=== PATIENT | male | born 1960 | race Caucasian/White ===

== ENCOUNTER → 2019-03-07 08:23 | Outpatient (CLI) | payer MEDICARE, SELFPAY ==
--- NOTE | 2019-03-07 08:29 | CT_ITS ---
STUDY: CT ORBITS WITH CONTRAST REASON FOR EXAM: Male, 59 years old. PROPTOSIS LT EYE R/O ORBITAL MASS. RESTRICTED MOVEMENT IN LEFT EYE. RADIATION DOSAGE (If Supplied By Facility): CTDIvol = ( 29.38 ) mGy, DLP = ( 327.08 ) mGycm TECHNIQUE: The patient was scanned in a multi detector CT scanner. Transaxial imaging was performed following the intravenous administration of 100 IV Isovue 370. Sagittal and coronal images were reconstructed. Individualized dose optimization techniques were used for this CT. COMPARISON: None. FINDINGS: Normal globes. Normal intraconal spaces. Normal optic nerve sheath complex. There is diffuse symmetric enlargement of the extraocular muscles on the left. Normal lacrimal glands. Normal bilateral medial and inferior orbital fisher. Normal bilateral maxillary bones. CT/Orb Sella Post Fossa Ear W/CON IMPRESSION: Enlargement of the left extraocular muscles. Differential considerations includes inflammatory (e.g. orbital pseudotumor), infectious and neoplastic disease. Electronically Signed: Manny Rondon MD at 10:25 EDT Tel , Service support ,
[2019-03-07 08:55] LABS: CREATININE FINGERSTICK 1.5 mg/dL (0.70-1.30)
== END ==
PROVIDERS: Family Provider Internal Medicine Infectious Disease; PCP Internal Medicine Infectious Disease; Referring Provider Ophthalmology; Visit Provider Ophthalmology
DX: H05.20 Unspecified exophthalmos (principal); H55.89 Other irregular eye movements
CPT/HCPCS: 70481; Q9967

== ENCOUNTER 2019-06-16 14:48 | Outpatient (RCR) | payer MEDICARE, SELFPAY ==
[2019-06-16 15:17] LABS: Hematocrit 26.4 % (40-54); Hemoglobin 7.9 g/dL (13.0-16.5); Mean Corp Hgb Conc 29.9 g/dL (32-36); Mean Corpuscular Hgb 29.4 pg (27.0-32.0); Mean Corpuscular Volume 98.1 fL (80-94); Mean Platelet Vol. 9.6 fl (6.2-12.0); Platelet Count 249 K/mm3 (150-450); RBC Distribution Width CV 18.6 % (11.6-14.6); Red Blood Count 2.69 M/mm3 (4.6-6.2); White Blood Count 9.3 K/mm3 (4.4-11.0)
[2019-06-16 15:25] LABS: Anion Gap 10 (5-15); BUN 76 mg/dL (7-18); BUN/Creat Ratio 12.1 RATIO (10-20); Calcium,Total 7.7 mg/dL (8.5-10.1); Chloride 108 mmol/L (98-107); Creatinine, Serum 6.29 mg/dL (0.70-1.30); EST Glomerular Filtration Rate 10 mL/min (>60); Est Glom Filt Rate - Afr Amer 12 mL/min (>60); Glucose 279 mg/dL (74-106); Potassium 5.2 mmol/L (3.5-5.1); Sodium Level 143 mmol/L (136-145)
== END 2019-06-21 23:59 ==
LOC: HHLAB 14:48
PROVIDERS: Family Provider Internal Medicine Infectious Disease; PCP Internal Medicine Infectious Disease; Referring Provider Internal Medicine Infectious Disease; Visit Provider Internal Medicine Infectious Disease
DX: N17.9 Acute kidney failure, unspecified (principal); Z99.2 Dependence on renal dialysis
CPT/HCPCS: 80048; 85027

== ENCOUNTER → 2019-06-19 | Outpatient (CLI) | payer MEDICARE, SELFPAY ==
[2019-06-19 17:58] LABS: Hematocrit 28.1 % (40-54); Mean Corp Hgb Conc 28.5 g/dL (32-36); Mean Corpuscular Hgb 29.5 pg (27.0-32.0); Mean Corpuscular Volume 103.7 fL (80-94); Mean Platelet Vol. 9.6 fl (6.2-12.0); POSITIVE MORPHOLOGY YES; Platelet Count 229 K/mm3 (150-450); RBC Distribution Width CV 18.1 % (11.6-14.6); RBC Distribution Width SD 68.8 fl (35.1-43.9); Red Blood Count 2.71 M/mm3 (4.6-6.2); White Blood Count 8.9 K/mm3 (4.4-11.0)
[2019-06-19 18:13] LABS: Anion Gap 11 (5-15); BUN 69 mg/dL (7-18); BUN/Creat Ratio 13.5 RATIO (10-20); Calcium,Total 8.1 mg/dL (8.5-10.1); Chloride 107 mmol/L (98-107); EST Glomerular Filtration Rate 12 mL/min (>60); Est Glom Filt Rate - Afr Amer 15 mL/min (>60); Glucose 239 mg/dL (74-106); Potassium 5.5 mmol/L (3.5-5.1); Sodium Level 145 mmol/L (136-145)
[2019-06-19 18:35] LABS: Scan Indicated on CBC? Y/N YES- FLAGS NOTED
== END | disposition home or self-care (01) ==
PROVIDERS: Family Provider Internal Medicine Infectious Disease; PCP Internal Medicine Infectious Disease; Referring Provider Internal Medicine Infectious Disease; Visit Provider Internal Medicine Infectious Disease
DX: N17.9 Acute kidney failure, unspecified (principal); Z99.2 Dependence on renal dialysis
CPT/HCPCS: 80048; 85027

== ENCOUNTER 2019-06-23 13:15 | Outpatient (RCR) | payer MEDICARE, SELFPAY ==
[2019-06-23 13:37] LABS: Hematocrit 26.7 % (40-54); Mean Corpuscular Hgb 29.6 pg (27.0-32.0); Mean Corpuscular Volume 98.9 fL (80-94); Platelet Count 203 K/mm3 (150-450); RBC Distribution Width SD 61.6 fl (35.1-43.9); White Blood Count 7.7 K/mm3 (4.4-11.0)
== END 2019-07-22 23:59 ==
LOC: HHLAB 13:15
PROVIDERS: Family Provider Internal Medicine Infectious Disease; PCP Internal Medicine Infectious Disease; Referring Provider Internal Medicine Infectious Disease; Visit Provider Internal Medicine Infectious Disease
DX: N17.9 Acute kidney failure, unspecified (principal); Z99.2 Dependence on renal dialysis
CPT/HCPCS: 85027

== ENCOUNTER 2019-08-16 08:36 | Outpatient (RCR) | payer MEDICARE, SELFPAY ==
[2019-08-16 09:33] VITALS: BP 116/60; PULSE 70; RESP 18; TEMP 36.9
--- NOTE | 2019-08-16 12:27 | PCM.WC.HP ---
(1) Ulcer of left lower extremity with fat layer exposed Status: Acute Current Visit: Yes Code(s): L97.922 - Non-pressure chronic ulcer of unspecified part of left lower leg with fat layer exposed (2) Ulcer of right lower extremity with fat layer exposed Status: Acute Current Visit: Yes Code(s): L97.912 - Non-pressure chronic ulcer of unspecified part of right lower leg with fat layer exposed (3) Decubitus ulcer of coccyx, stage 2 Status: Acute Current Visit: Yes Code(s): L89.152 - Pressure ulcer of sacral region, stage 2 (4) Diabetes mellitus Status: Chronic Current Visit: No Code(s): E11.9 - Type 2 diabetes mellitus without complications (5) Peripheral vascular disease Status: Chronic Current Visit: No Code(s): I73.9 - Peripheral vascular disease, unspecified (6) Venous insufficiency of both lower extremities Status: Chronic Current Visit: No Code(s): I87.2 - Venous insufficiency (chronic) (peripheral) History of Present Illness Date of Service: 08/16/19 Chief Complaint: Nonhealing bilateral lower extremity ulcers. History of Wound: Mr. Cordero 59-year-old known to the wound center who returns due to 3-week history of nonhealing bilateral lower extremity ulcerations. Symptoms started with bilateral lower extremity swelling, blistering and then subsequent ulceration. He is status post recent hospital admission where he was managed for cellulitis. He also reports new onset ulceration around his buttock area. Denies any history of trauma. During his hospital stay, he had dry dressing with gauze daily. He states that he has noted no significant improvement so far. Lower extremity swelling however has improved. He denies chills, fever or otherwise feeling of unwell. History of end-stage renal disease on dialysis 3 times weekly. Past Medical History Past Medical History: Chronic Problems Equinus contracture of left ankle (Chronic) Hammer toe of left foot (Chronic) Diabetic neuropathy (Chronic) CHF (congestive heart failure) (Chronic) Infected skin ulcer with fat layer exposed (Chronic) Ulcer of left foot (Chronic) Diabetic foot ulcer associated with secondary diabetes mellitus (Chronic) Swelling of lower extremity (Chronic) Hyperlipidemia (Chronic) Hypertension (Chronic) Diabetes mellitus (Chronic) History of [place] (myocardial infarction) (Chronic) Coronary artery arteriosclerosis (Chronic) Venous insufficiency of both lower extremities (Chronic) Edema, lower extremity (Chronic) Peripheral vascular disease (Chronic) Surgical History: - - The patient underwent coronary vascular rosacea in 2013. A pacemaker is placed in 2013 as well. The patient is undergone bilaterally with a hernia repairs. Allergies/Adverse Reactions: Allergies CONTRAST DYE Adverse Reaction (Uncoded 11/24/15 13:20) Other Home Medications: Ambulatory Orders Medication Instructions Recorded Aspirin [Adult Low Dose Aspirin EC] 81 mg PO DAILY 08/28/15 Gabapentin [Neurontin] 300 mg PO TIDCM 08/28/15 Insulin Glargine,Hum.rec.anlog 60 units SQ QHS 08/28/15 [Lantus] Lisinopril [Zestril] 40 mg PO DAILY 08/28/15 Lovastatin [Mevacor] 20 mg PO DAILY 08/28/15 Metoprolol Tartrate [Lopressor 100 mg PO DAILY 08/28/15 ([facility] [place])] Insulin Aspart [Novolog Flexpen 26 units SC TIDCM 11/14/15 ([facility])] - Family History Maternal - - Patient's father at age of 83 with a history of heart disease and dementia. The patient's mother is alive, age 84, and healthy. Smoking Status: Never smoker Review of Systems Constitutional: Denies: Anorexia, Chills, Fever, Night Sweats Eyes: Denies: Blurred vision, Pain HEENT: Denies: Difficulty Swallowing Cardiovascular: Denies: Chest Pain Respiratory: Denies: Hemoptysis Gastrointestinal: Denies: Abdominal Pain, Hematemesis, Vomiting Skin: Denies: Jaundice Neurological: Reports: Balance problems - Physical Exam Vital Signs Temp Pulse Resp BP 98.4 F 70 18 116/60 08/16/19 09:33 08/16/19 09:33 08/16/19 09:33 08/16/19 09:33 General: Alert, Oriented x3, Cooperative, No apparent distress HEENT: Atraumatic, Normocephalic Oral: Moist Mucosa Neck: Supple Lungs: Normal air movement Abdomen: Non Tender, Obese Extremities: No cyanosis, Edema Skin: Ulcer/ Wound Wound Measurements and Assessment WC - Nurse 1 - General Ulcer Measurement Start: 08/16/19 09:13 Freq: Status: Active Protocol: Activity Type Activity Date Activity User E-Sign Co-Sign Detail Recorded Client Recorded Date Recorded By Document 08/16/19 09:13 RB [id number] 08/16/19 09:32 RB 08/16/19 09:13 Wound Center Nurse 1 [Ulcer Assessment] 7. RLE lateral cluster -Combined with other wound No -Current Size (cm) - Length 16 -Current Size (cm) - Width 13 -Current Size (cm) - Depth 0.1 -Total Square Cm 208 -Photo Taken Yes -Tunneling No -Undermining/Tunneling No -Circular Undermining No -Exudate Amt Medium -Exudate Type Serosanguineous -Wound Margin Flat & Intact -Granulation Amt Medium (34-66%) -Granulation Quality [place] -Slough/Fibrin Yes -Necrosis Amt Small (1-33%) -Necrotic Tissue Type Adherent Slough -Structure Exposed N/A -Texture (Emily-wound Skin Appearance) Assessed -Moisture (Emily-wound Skin Appearance Dry/Scaly ) -Color (Emily-wound Skin Appearance) Hemosiderin Staining -Temperature (Emily-wound Skin No Abnormality Appearance) (Pt Warm) -Tenderness on Palpation (Emily-wound No Skin Appearance) -Ulcer Cleansing Wound Cleanser -Foul Odor after Cleansing No -Anesthetic Used 5% Lidocaine Gel 6. LLE lateral superior -Combined with other wound No -Current Size (cm) - Length 3.5 -Current Size (cm) - Width 2.5 -Current Size (cm) - Depth 0.1 -Total Square Cm 8.75 -Photo Taken Yes -Tunneling No -Undermining/Tunneling No -Circular Undermining No -Exudate Amt Medium -Exudate Type Serosanguineous -Wound Margin Flat & Intact -Granulation Amt Medium (34-66%) -Granulation Quality [place] -Slough/Fibrin Yes -Necrosis Amt Small (1-33%) -Necrotic Tissue Type Adherent Slough -Structure Exposed N/A -Texture (Emily-wound Skin Appearance) Assessed -Moisture (Emily-wound Skin Appearance Dry/Scaly ) -Color (Emily-wound Skin Appearance) Hemosiderin Staining -Temperature (Emily-wound Skin No Abnormality Appearance) (Pt Warm) -Tenderness on Palpation (Emily-wound No Skin Appearance) -Ulcer Cleansing Wound Cleanser -Foul Odor after Cleansing No -Anesthetic Used 5% Lidocaine Gel 5. LLE lateral inferior cluster -Combined with other wound No -Current Size (cm) - Length 8.2 -Current Size (cm) - Width 4 -Current Size (cm) - Depth 0.1 -Total Square Cm 32.8 -Photo Taken Yes -Tunneling No -Undermining/Tunneling No -Circular Undermining No -Exudate Amt Medium -Exudate Type Serosanguineous -Wound Margin Flat & Intact -Granulation Amt Medium (34-66%) -Granulation Quality [place] -Slough/Fibrin Yes -Necrosis Amt Small (1-33%) -Necrotic Tissue Type Adherent Slough -Structure Exposed N/A -Texture (Emily-wound Skin Appearance) Assessed -Moisture (Emily-wound Skin Appearance Assessed,Dry/ ) Scaly -Color (Emily-wound Skin Appearance) Assessed, Hemosiderin Staining -Temperature (Emily-wound Skin No Abnormality Appearance) (Pt Warm) -Tenderness on Palpation (Emily-wound No Skin Appearance) -Ulcer Cleansing Wound Cleanser -Foul Odor after Cleansing No -Anesthetic Used 5% Lidocaine Gel 4. coccyx -Combined with other wound No -Current Size (cm) - Length 0.6 -Current Size (cm) - Width 0.9 -Current Size (cm) - Depth 0.1 -Total Square Cm 0.54 -Photo Taken Yes -Tunneling No -Undermining/Tunneling No -Circular Undermining No -Exudate Amt Small -Exudate Type Serosanguineous -Wound Margin Distinct, Outline Attached -Granulation Amt Medium (34-66%) -Granulation Quality [place] -Slough/Fibrin Yes -Necrosis Amt Small (1-33%) -Necrotic Tissue Type Adherent Slough -Structure Exposed N/A -Texture (Emily-wound Skin Appearance) Assessed -Moisture (Emily-wound Skin Appearance Maceration ) -Color (Emily-wound Skin Appearance) Assessed -Temperature (Emily-wound Skin No Abnormality Appearance) (Pt Warm) -Tenderness on Palpation (Emily-wound No Skin Appearance) -Ulcer Cleansing Wound Cleanser -Foul Odor after Cleansing No -Anesthetic Used 5% Lidocaine Gel [Edema Assessment] -Lower Limb Edema Present Yes -Right Calf (cm) 42.5 -Right Ankle (cm) 24 -Left Calf (cm) 43.7 -Left Ankle (cm) 24.5 WC - Nurse 2 - General Ulcer CM Notes Start: 08/16/19 09:13 Freq: Status: Active Protocol: Activity Type Activity Date Activity User E-Sign Co-Sign Detail Recorded Client Recorded Date Recorded By Document 08/16/19 09:43 MW [id number] 08/16/19 09:58 MW 08/16/19 09:43 Wound Center Nurse 2 [Procedure/Treatment] #8 RLE Medial -Time 09:48 -Correct Patient Yes -Correct Side, Site, Position Yes -Correct Procedure Yes -Procedure Performed Yes -Type of Procedure Debridement -Clinical Debridement Subcutaneous -Post Debridement Size (cm) - Length 5.5 -Post Debridement Size (cm) - Width 4.5 -Post Debridement Size (cm) - Depth 0.1 -Total Square Cm 24.75 -Wound/Ulcer Outcome Not Healed -Ulcer Cleansing Rinsed/ Irrigated with Saline -Foul Odor after Cleansing No -Bioengineered Tissue No -Bleeding Controlled with Pressure -Offloading No -Treatment Response Procedure Tolerated Well 7. RLE lateral cluster -Time 09:43 -Correct Patient Yes -Correct Side, Site, Position Yes -Correct Procedure Yes -Procedure Performed Yes -Type of Procedure Debridement -Clinical Debridement Subcutaneous -Post Debridement Size (cm) - Length 15.5 -Post Debridement Size (cm) - Width 5.0 -Post Debridement Size (cm) - Depth 0.1 -Total Square Cm 77.50 -Wound/Ulcer Outcome Not Healed -Ulcer Cleansing Rinsed/ Irrigated with Saline -Foul Odor after Cleansing No -Bioengineered Tissue No -Bleeding Controlled with Pressure -Offloading No -Treatment Response Procedure Tolerated Well 6. LLE lateral superior -Time 09:45 -Correct Patient Yes -Correct Side, Site, Position Yes -Correct Procedure Yes -Procedure Performed Yes -Type of Procedure Debridement -Clinical Debridement Subcutaneous -Post Debridement Size (cm) - Length 5.0 -Post Debridement Size (cm) - Width 3.5 -Post Debridement Size (cm) - Depth 0.1 -Total Square Cm 17.50 -Wound/Ulcer Outcome Not Healed -Ulcer Cleansing Rinsed/ Irrigated with Saline -Foul Odor after Cleansing No -Bioengineered Tissue No -Bleeding Controlled with Pressure -Offloading No 5. LLE lateral inferior cluster -Time 09:46 -Correct Patient Yes -Correct Side, Site, Position Yes -Correct Procedure Yes -Procedure Performed Yes -Type of Procedure Debridement -Clinical Debridement Subcutaneous -Post Debridement Size (cm) - Length 10.0 -Post Debridement Size (cm) - Width 4.5 -Post Debridement Size (cm) - Depth 0.1 -Total Square Cm 45.00 -Wound/Ulcer Outcome Not Healed -Ulcer Cleansing Rinsed/ Irrigated with Saline -Foul Odor after Cleansing No -Bioengineered Tissue No -Bleeding Controlled with Pressure -Offloading No -Treatment Response Procedure Tolerated Well 4. coccyx -Time 09:46 -Correct Patient Yes -Correct Side, Site, Position Yes -Correct Procedure Yes -Procedure Performed Yes -Type of Procedure Debridement -Clinical Debridement Subcutaneous -Post Debridement Size (cm) - Length 0.4 -Post Debridement Size (cm) - Width 0.5 -Post Debridement Size (cm) - Depth 0.1 -Total Square Cm 0.20 -Wound/Ulcer Outcome Not Healed -Ulcer Cleansing Rinsed/ Irrigated with Saline -Foul Odor after Cleansing No -Bioengineered Tissue No -Bleeding Controlled with Pressure -Offloading No -Treatment Response Procedure Tolerated Well [See Physician Procedure note for Specifics] Pain Scale: 0-10 Numeric [Pain] -Is Patient Pain Free? Yes Musculoskeletal: No Muscle Wasting Neurological: Cranial nerves II-XII grossly intact Psych/Mental Status: Normal Affect Debridement Note Post-Debridement Measurements/Treatment WC - Nurse 2 - General Ulcer CM Notes Start: 08/16/19 09:13 Freq: Status: Active Protocol: Activity Type Activity Date Activity User E-Sign Co-Sign Detail Recorded Client Recorded Date Recorded By Document 08/16/19 09:43 MW [id number] 08/16/19 09:58 MW 08/16/19 09:43 Wound Center Nurse 2 #8 RLE Medial -Time 09:48 -Correct Patient Yes -Correct Side, Site, Position Yes -Correct Procedure Yes -Procedure Performed Yes -Type of Procedure Debridement -Clinical Debridement Subcutaneous -Post Debridement Size (cm) - Length 5.5 -Post Debridement Size (cm) - Width 4.5 -Post Debridement Size (cm) - Depth 0.1 -Total Square Cm 24.75 -Wound/Ulcer Outcome Not Healed -Ulcer Cleansing Rinsed/ Irrigated with Saline -Foul Odor after Cleansing No -Bioengineered Tissue No -Bleeding Controlled with Pressure -Offloading No -Treatment Response Procedure Tolerated Well 7. RLE lateral cluster -Time 09:43 -Correct Patient Yes -Correct Side, Site, Position Yes -Correct Procedure Yes -Procedure Performed Yes -Type of Procedure Debridement -Clinical Debridement Subcutaneous -Post Debridement Size (cm) - Length 15.5 -Post Debridement Size (cm) - Width 5.0 -Post Debridement Size (cm) - Depth 0.1 -Total Square Cm 77.50 -Wound/Ulcer Outcome Not Healed -Ulcer Cleansing Rinsed/ Irrigated with Saline -Foul Odor after Cleansing No -Bioengineered Tissue No -Bleeding Controlled with Pressure -Offloading No -Treatment Response Procedure Tolerated Well 6. LLE lateral superior -Time 09:45 -Correct Patient Yes -Correct Side, Site, Position Yes -Correct Procedure Yes -Procedure Performed Yes -Type of Procedure Debridement -Clinical Debridement Subcutaneous -Post Debridement Size (cm) - Length 5.0 -Post Debridement Size (cm) - Width 3.5 -Post Debridement Size (cm) - Depth 0.1 -Total Square Cm 17.50 -Wound/Ulcer Outcome Not Healed -Ulcer Cleansing Rinsed/ Irrigated with Saline -Foul Odor after Cleansing No -Bioengineered Tissue No -Bleeding Controlled with Pressure -Offloading No 5. LLE lateral inferior cluster -Time 09:46 -Correct Patient Yes -Correct Side, Site, Position Yes -Correct Procedure Yes -Procedure Performed Yes -Type of Procedure Debridement -Clinical Debridement Subcutaneous -Post Debridement Size (cm) - Length 10.0 -Post Debridement Size (cm) - Width 4.5 -Post Debridement Size (cm) - Depth 0.1 -Total Square Cm 45.00 -Wound/Ulcer Outcome Not Healed -Ulcer Cleansing Rinsed/ Irrigated with Saline -Foul Odor after Cleansing No -Bioengineered Tissue No -Bleeding Controlled with Pressure -Offloading No -Treatment Response Procedure Tolerated Well 4. coccyx -Time 09:46 -Correct Patient Yes -Correct Side, Site, Position Yes -Correct Procedure Yes -Procedure Performed Yes -Type of Procedure Debridement -Clinical Debridement Subcutaneous -Post Debridement Size (cm) - Length 0.4 -Post Debridement Size (cm) - Width 0.5 -Post Debridement Size (cm) - Depth 0.1 -Total Square Cm 0.20 -Wound/Ulcer Outcome Not Healed -Ulcer Cleansing Rinsed/ Irrigated with Saline -Foul Odor after Cleansing No -Bioengineered Tissue No -Bleeding Controlled with Pressure -Offloading No -Treatment Response Procedure Tolerated Well Pain Scale: 0-10 Numeric Is Patient Pain Free? Yes Wound debrided: Right lower extremity lateral cluster Type of Debridement: Excisional debridement Anesthesia Used: 4% Lidocaine Solution Depth: Down to and including healthy tissue, in the subcutaneous layer Percentage of wound debrided: 100 Instrument Used: 7mm curette Tissue Removed: Slough and devitalized tissue Severity: Fat Layer Exposed Amount of bleeding with debridement: Mild Bleeding Controlled with: Pressure Patient tolerated procedure well - Additional Wound Wound debrided: Right lower extremity medial Type of Debridement: Excisional debridement Anesthesia Used: 4% Lidocaine Solution Depth: Down to and including healthy tissue, in the subcutaneous layer Percentage of wound debrided: 100 Instrument Used: 7mm curette Tissue Removed: Slough and devitalized tissue Severity: Fat Layer Exposed Amount of bleeding with debridement: Mild Bleeding Controlled with: Pressure Patient tolerated procedure: Patient tolerated procedure well - Additional Wound Wound debrided: Left lower extremity cluster Type of Debridement: Excisional debridement Anesthesia Used: 4% Lidocaine Solution Depth: Down to and including healthy tissue, in the subcutaneous layer Percentage of wound debrided: 100 Instrument Used: 7mm curette Tissue Removed: Slough and devitalized tissue Severity: Fat Layer Exposed Amount of bleeding with debridement: Mild Bleeding Controlled with: Pressure Patient tolerated procedure: Patient tolerated procedure well - Additional Wound Wound debrided: Coccyx Wound Grade/Stage: Stage II Type of Debridement: Excisional debridement Anesthesia Used: 4% Lidocaine Solution Depth: Down to and including healthy tissue, in the subcutaneous layer Percentage of wound debrided: 100 Instrument Used: 3mm curette Tissue Removed: Slough and devitalized tissue Severity: Fat Layer Exposed Amount of bleeding with debridement: Mild Bleeding Controlled with: Pressure Patient tolerated procedure: Patient tolerated procedure well Assessment/Plan Active Problems Ulcer of left lower extremity with fat layer exposed (Acute) Ulcer of right lower extremity with fat layer exposed (Acute) Decubitus ulcer of coccyx, stage 2 (Acute) Assessment: Nonhealing bilateral lower extremity ulcerations secondary to venous insufficiency/post bilateral lower extremity cellulitis. Stage II coccyx ulcer. Peripheral arterial disease and bilateral venous insufficiency. End-stage renal disease on dialysis. Plan: Debridement done as documented above. Procedure was well-tolerated. Status post recent hospital admission where he was managed for bilateral lower extremity cellulitis. Wounds appear clean at this time with no concern for infection. Aquacel extra daily to twice daily depending on drainage to all ulcers. Double layer Tubigrip's for edema management and OptiForm over Aquacel to the coccyx area. Offloading recommended. Exercise as tolerated, weight loss and leg elevations also discussed. Increased protein intake also recommended. All his questions were answered and he was advised to call with any further questions or concerns. Follow-up in 1 week. This note was generated with [employer] dictation software. It may contain incorrect words, spelling, and punctuation that were not noted in checking the note before signing.
== END 2019-08-21 23:59 ==
LOC: WC 08:36
PROVIDERS: Family Provider Internal Medicine Infectious Disease; PCP Internal Medicine Infectious Disease; Visit Provider Internal Medicine
DX: E11.622 Type 2 diabetes mellitus with other skin ulcer (principal); L89.152 Pressure ulcer of sacral region, stage 2; E11.51 Type 2 diabetes mellitus with diabetic peripheral angiopathy without gangrene; M79.89 Other specified soft tissue disorders; E78.5 Hyperlipidemia, unspecified; I25.10 Atherosclerotic heart disease of native coronary artery without angina pectoris; I50.9 Heart failure, unspecified; I13.2 Hypertensive heart and chronic kidney disease with heart failure and with stage 5 chronic kidney disease, or end stage renal disease; N13.2 Hydronephrosis with renal and ureteral calculous obstruction; E11.22 Type 2 diabetes mellitus with diabetic chronic kidney disease; L97.812 Non-pressure chronic ulcer of other part of right lower leg with fat layer exposed; L97.822 Non-pressure chronic ulcer of other part of left lower leg with fat layer exposed; I25.2 Old myocardial infarction; Z79.899 Other long term (current) drug therapy; Z79.82 Long term (current) use of aspirin; Z79.4 Long term (current) use of insulin
CPT/HCPCS: 11042; 11045; 80048; 80061; 83036; 85652; 99213; G0463

== ENCOUNTER → 2019-08-16 17:54 | Outpatient (CLI) | payer MEDICARE, SELFPAY ==
[2019-08-16 18:12] LABS: Erythrocyte Sedimentation Rate 58 mm/hr (0-20)
[2019-08-16 18:24] LABS: Hemoglobin A1c 8.1 % (4.2-6.3)
[2019-08-16 18:35] LABS: Anion Gap 10 (5-15); BUN 64 mg/dL (7-18); BUN/Creat Ratio 9.6 RATIO (10-20); Calcium,Total 7.9 mg/dL (8.5-10.1); Chloride 98 mmol/L (98-107); Cholesterol 78 mg/dL (200); Creatinine, Serum 6.64 mg/dL (0.70-1.30); EST Glomerular Filtration Rate 9 mL/min (>60); Est Glom Filt Rate - Afr Amer 11 mL/min (>60); Glucose 332 mg/dL (74-106); High Density Lipoprotein 52 mg/dL; Potassium 5.3 mmol/L (3.5-5.1); Sodium Level 138 mmol/L (136-145); Triglycerides 75 mg/dL; Very Low Density Lipoprotein 15 mg/dL (5-40)
== END ==
LOC: LABSPEC 17:55 → HH 17:57
PROVIDERS: Family Provider Internal Medicine Infectious Disease; PCP Internal Medicine Infectious Disease; Referring Provider Internal Medicine Infectious Disease; Visit Provider Internal Medicine Infectious Disease
DX: Z79.899 Other long term (current) drug therapy (principal)
CPT/HCPCS: 80048; 80061; 83036; 85652

== ENCOUNTER 2019-11-03 20:35 | Inpatient (IN) | payer MEDICARE, SELFPAY ==
[2019-11-03] VITALS (9 sets, daily range): BP systolic 87–138; BP diastolic 61–90; PULSE 89–99; RESP 14–22; TEMP 35.9–36.4; O2SAT 78–100
--- NOTE | 2019-11-03 20:39 | EKG12_ITS ---
Test Reason : DYSRHYTHMIA Blood Pressure : / mmHG Vent. Rate : 197 BPM Atrial Rate : 102 BPM P-R Int : 000 ms QRS Dur : 170 ms QT Int : 166 ms P-R-T Axes : 000 -55 000 degrees QTc Int : 300 ms Sinus Tach with Paced Vetricular Response Left axis deviation Abnormal ECG Confirmed by ALEXANDR BARRON ([id number]), editorial project manager CHERI HOLLY ([id number]) on 11/08/2019 1:06:15 PM Referred By: Bam Campoverde Confirmed By:ALEXANDR BARRON
[2019-11-03] MEDS: Etomidate 20 MG/10 ML Vial IV (20:47)
[2019-11-03] MEDS: Rocuronium Bromide 50 MG/5 ML Vial 100 MG IV (20:48)
[2019-11-03] MEDS: 0.9% Normal Saline 1,000 ML 999 ML IV (20:53)
[2019-11-03 20:55] LABS: Absolute Lymphocyte Count 0.74 X10^3/uL (0.83-4.51); Absolute Neutrophil Count 7.4 X10^3/uL (2.0-7.7); Basophil# 0.05 X10^3/uL; Basophil% 0.5 % (0-1); Eosinophil# 0.01 X10^3/uL; Eosinophils% 0.1 % (0-5); Hematocrit 32.7 % (40-54); Hemoglobin 9.7 g/dL (13.0-16.5); Lymphocyte # 0.74 X10^3/ul (4.0); Lymphocyte % 7.8 % (19-41); Mean Corp Hgb Conc 29.7 g/dL (32-36); Mean Corpuscular Hgb 29.8 pg (27.0-32.0); Mean Corpuscular Volume 100.3 fL (80-94); Mean Platelet Vol. 9.2 fl (6.2-12.0); Monocyte# 1.13 X10^3/uL; NRBC Flagged by Analyzer 0 % (0-5); Neutrophil # 7.36 X10^3/uL (2.7-7.7); Neutrophil % 78.1 % (47-70); Platelet Count 229 K/mm3 (150-450); RBC Distribution Width CV 16.3 % (11.6-14.6); RBC Distribution Width SD 59.3 fl (35.1-43.9); Red Blood Count 3.26 M/mm3 (4.6-6.2); White Blood Count 9.4 K/mm3 (4.4-11.0)
--- NOTE | 2019-11-03 20:56 | RAD_ITS ---
STUDY: X-RAY CHEST REASON FOR EXAM: Male, 59 years old. ET tube and NG tube placement TECHNIQUE: Single AP portable view of the chest. COMPARISON: None. FINDINGS: ET tube is noted terminating roughly 4 cm from the charu. Enteric tube is noted with tip and side-port in the stomach. Right subclavian central venous catheter with tip in the distal SVC. Lungs are mildly hypoinflated. Bibasilar atelectasis. Elevated hemidiaphragms. Cardiomegaly with median sternotomy wires. No acute airspace disease. Left chest wall pacing device RAD/Chest 1 View (Portable) IMPRESSION: Lines and tubes as above. Hypoinflated lungs with bibasilar atelectasis. Electronically Signed: Manpreet Beltre DO at 21:24 EST Tel , Service support ,
[2019-11-03 21:03] LABS: Partial Thromboplast Time 40.5 Seconds (24.1-36.2)
[2019-11-03 21:17] LABS: ALB/GLOB Ratio 0.5 RATIO (0.9-2.4); AST(SGOT) 341 U/L (15-37); Alanine Aminotransfer ALT/SGPT 219 U/L (16-61); Albumin, Serum 2.9 g/dL (3.2-5.0); Alkaline Phosphatase 251 U/L (45-117); Anion Gap 13 (5-15); BUN 69 mg/dL (7-18); BUN/Creat Ratio 9.3 RATIO (10-20); Calcium,Total 8.9 mg/dL (8.5-10.1); Chloride 97 mmol/L (98-107); Creatinine, Serum 7.44 mg/dL (0.70-1.30); Estimated Creatinine Clearance 21.25 ml/min; Globulin 5.7 g/dL (2.2-4.2); Glucose 202 mg/dL (74-106); Potassium 8.3 mmol/L (3.5-5.1); Protein, Total 8.6 g/dL (6.4-8.2); Sodium Level 136 mmol/L (136-145)
[2019-11-03 21:21] LABS: Allen Test POS; Base Excess -1 mmol/L (-2 to +2); Bicarbonate 26.5 mmol/L (22-26); FI02 80; Mode A-C; O2 Delivery Device Vent; PEEP 5; PO2 46 mmHG (75-100); RR 14; SITE R Radial; SO2 71 % (95-99); Time Given 2110; Total Carbon Dioxide 28 mmol/L; Vt 500; pCO2 65.3 mmHg (35-45); pH 7.22 (7.35-7.45)
[2019-11-03 21:22] LABS: Mucous, Urine 0 SEEN /hpf (<or=2+); Squamous Epithelial Cells - UA 0 SEEN /hpf (0-5)
[2019-11-03 21:25] LABS: Glucose, Dipstick Normal (Normal); Ketone-Dipstick Negative (Negative); Leukocyte Esterase-Dipstick 500 /ul (Negative); Nitrite-Dipstick Negative (Negative); Occult Blood-Urine 250 /ul (Negative); Protein-Dipstick 500 mg/dl (Negative); Urine Bilirubin Dipstick Negative (Negative); Urine Clarity Turbid (Clear); Urine Urobilinogen Normal (Normal)
[2019-11-03] MEDS: 0.9% Normal Saline 1,000 ML 1000 ML IV ×3 (21:28→23:03)
[2019-11-03] MEDS: Calcium Gluconate 1 GM/10 ML Vial IV (21:33)
[2019-11-03] MEDS: Insulin Lispro 5 UNIT in Syringe 0 ML 3 UNIT IV (21:35)
[2019-11-03 21:36] LABS: Bedside Glucose 177 mg/dL (70-110)
[2019-11-03 21:39] LABS: Color, Urine SEE COMMENT BELOW (Yellow)
[2019-11-03 21:41] LABS: White Blood Cells >100 SEEN /hpf (0-5)
[2019-11-03 21:42] LABS: Bacteria 1+ /hpf (None Seen); Red Blood Cells-Urine 10-25 SEEN /hpf (0-5)
[2019-11-03] MEDS: fentaNYL 100 MCG/2 ML Ampul 50 MCG IV ×2 (21:59→22:27)
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
[2019-11-03] MEDS: fentaNYL drip 100 ML 2.5 MCG IV (22:11)
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
[2019-11-03] MEDS: Dextrose 10%-Water 250 ML 999 ML IV (22:49)
[2019-11-03] MEDS: Famotidine 200 MG/20 ML MDV 20 MG in 0.9% Normal Saline (Pres. free 8 ML 300 MG IV (23:04)
[2019-11-03] MEDS: Propofol 10MG/Ml 1,000 MG/100 ML Bottle 8.6 MG CONT INF (23:13)
--- NOTE | 2019-11-03 23:17 | SEPSISNOTE ---
Sepsis Note - Physical Exam/Vitals Objective: Chest X-Ray 11/03/19 20:56 IMPRESSION: Lines and tubes as above. Hypoinflated lungs with bibasilar atelectasis. Electronically Signed: Manpreet Beltre DO at 21:24 EST Tel , Service support , Temp Pulse Resp BP Pulse Ox 97.1 F L 94 22 H 138/80 H 97 11/03/19 22:05 11/03/19 23:11 11/03/19 23:11 11/03/19 23:11 11/03/19 23:11 11/03/19 11/03/19 11/03/19 21:23 21:17 20:50 WBC RBC Hgb Hct MCV MCH MCHC RDW Std Deviation RDW Coeff of Melissa Plt Count MPV Immature Gran % (Auto) Neut % (Auto) Lymph % (Auto) [place] % (Auto) Eos % (Auto) Baso % (Auto) Absolute Neuts (auto) Absolute Lymphs (auto) Nucleated RBC % PT INR APTT Specimen Type ART Sample Site R Radial pH 7.22 L Bicarbonate Actual 26.5 H POC Total CO2 28 Base Excess -1 O2 Saturation 71 L O2 % 80 ABG pCO2 65.3 H ABG pO2 46 L Daniel Test POS Respiration Rate 14 O2 Delivery Device Vent Minute Volume 9.00 Vent Mode A-C Tidal Volume 500 POC PEEP 5 Blood Gas Notified Whom ED MD Blood Gas Notified Time 2109 Sodium Potassium Chloride Carbon Dioxide Anion Gap BUN Creatinine Estim Creat Clear Calc Est GFR (MDRD) Af Amer Est GFR (MDRD) Non-Af BUN/Creatinine Ratio Glucose Lactic Acid Calcium Total Bilirubin AST ALT Alkaline Phosphatase Total Protein Albumin Globulin Albumin/Globulin Ratio Urine Color SEE COMMENT BELOW Urine Clarity Turbid Urine pH 7.0 Ur Specific [place] 1.010 Urine Protein 500 H Urine Glucose (UA) Normal Urine Ketones Negative Urine Occult Blood 250 H Urine Nitrite Negative Urine Bilirubin Negative Urine Urobilinogen Normal Ur Leukocyte Esterase 500 H Urine RBC 10-25 SEEN Urine WBC >100 SEEN Ur Squamous Epith Cells 0 SEEN Urine Bacteria 1+ Urine Mucus 0 SEEN POC Glucose 177 H 11/03/19 11/03/19 11/03/19 20:45 20:45 20:45 WBC RBC Hgb Hct MCV MCH MCHC RDW Std Deviation RDW Coeff of Melissa Plt Count MPV Immature Gran % (Auto) Neut % (Auto) Lymph % (Auto) [place] % (Auto) Eos % (Auto) Baso % (Auto) Absolute Neuts (auto) Absolute Lymphs (auto) Nucleated RBC % PT 23.0 H INR 2.0 APTT 40.5 H Specimen Type Sample Site pH Bicarbonate Actual POC Total CO2 Base Excess O2 Saturation O2 % ABG pCO2 ABG pO2 Daniel Test Respiration Rate O2 Delivery Device Minute Volume Vent Mode Tidal Volume POC PEEP Blood Gas Notified Whom Blood Gas Notified Time Sodium 136 Potassium 8.3 H* Chloride 97 L Carbon Dioxide 26.0 Anion Gap 13 BUN 69 H Creatinine 7.44 H* Estim Creat Clear Calc 21.25 Est GFR (MDRD) Af Amer TNP Est GFR (MDRD) Non-Af TNP BUN/Creatinine Ratio 9.3 L Glucose 202 H Lactic Acid 5.0 H* Calcium 8.9 Total Bilirubin 1.10 H AST 341 H ALT 219 H Alkaline Phosphatase 251 H Total Protein 8.6 H Albumin 2.9 L Globulin 5.7 H Albumin/Globulin Ratio 0.5 L Urine Color Urine Clarity Urine pH Ur Specific [place] Urine Protein Urine Glucose (UA) Urine Ketones Urine Occult Blood Urine Nitrite Urine Bilirubin Urine Urobilinogen Ur Leukocyte Esterase Urine RBC Urine WBC Ur Squamous Epith Cells Urine Bacteria Urine Mucus POC Glucose 11/03/19 20:45 WBC 9.4 RBC 3.26 L Hgb 9.7 L Hct 32.7 L MCV 100.3 H MCH 29.8 MCHC 29.7 L RDW Std Deviation 59.3 H RDW Coeff of Melissa 16.3 H Plt Count 229 MPV 9.2 Immature Gran % (Auto) 1.500 H Neut % (Auto) 78.1 H Lymph % (Auto) 7.8 L [place] % (Auto) 12.0 H Eos % (Auto) 0.1 Baso % (Auto) 0.5 Absolute Neuts (auto) 7.4 Absolute Lymphs (auto) 0.74 L Nucleated RBC % 0 PT INR APTT Specimen Type Sample Site pH Bicarbonate Actual POC Total CO2 Base Excess O2 Saturation O2 % ABG pCO2 ABG pO2 Daniel Test Respiration Rate O2 Delivery Device Minute Volume Vent Mode Tidal Volume POC PEEP Blood Gas Notified Whom Blood Gas Notified Time Sodium Potassium Chloride Carbon Dioxide Anion Gap BUN Creatinine Estim Creat Clear Calc Est GFR (MDRD) Af Amer Est GFR (MDRD) Non-Af BUN/Creatinine Ratio Glucose Lactic Acid Calcium Total Bilirubin AST ALT Alkaline Phosphatase Total Protein Albumin Globulin Albumin/Globulin Ratio Urine Color Urine Clarity Urine pH Ur Specific [place] Urine Protein Urine Glucose (UA) Urine Ketones Urine Occult Blood Urine Nitrite Urine Bilirubin Urine Urobilinogen Ur Leukocyte Esterase Urine RBC Urine WBC Ur Squamous Epith Cells Urine Bacteria Urine Mucus POC Glucose General: - - Intubated and sedated Lungs: Rhonchi Cardiovascular: Regular rate, Normal S1, Normal S2, No murmurs Capillary Refill: <3 seconds Peripheral Pulses: Normal Skin Color: - - Pale bilateral lower extremities; tight and erythematous left foot - Assessment/Plan Septic shock Continue trend lactic acid Received normal saline 30 mm/kg bolus per septic shock protocol Blood cultures and urine cultures are pending; follow. Received broad-spectrum antibiotic vancomycin and Zosyn. Continue vancomycin and Zosyn
[2019-11-04] VITALS (43 sets, daily range): BP systolic 82–122; BP diastolic 37–77; PULSE 76–100; RESP 13–21; TEMP 35.6–37.8; O2SAT 93–99; BMI 41.5
[2019-11-04] MEDS: 0.9% Normal Saline 1,000 ML 999 ML IV (00:30)
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
--- NOTE | 2019-11-04 00:39 | ECHOCS_ITS ---
Reason For Study: UNRESPONSIVENESS Procedure This was a 2D Doppler, Color Flow transthoracic echocardiogram. The study was technically difficult. Due to body habitus. Contrast injection was performed. Left Ventricle Mildly dilated left ventricle. Segmental dysfunction with preserved ejection fraction (see wall motion). The estimated ejection fraction is 55 %. Unable to assess diastolic dysfunction. [place] : Hypokinetic. Right Ventricle Normal RV size. ICD or pacer leads identified within the right ventricle. Normal systolic function. Atria The left atrium is mildly enlarged. Normal right atrium. ICD or pacer leads identified within the right atrium. No doppler evidence for ASD. Mitral Valve There is mild mitral annular calcification. Extension of the mitral annular calcification onto the mitral valve leaflet. Mild (1+) mitral valve insufficiency. Tricuspid Valve The tricuspid valve is not well visualized. Mild tricuspid valve insufficiency. Right ventricular systolic pressure estimated to be 29 mmHg. Aortic Valve The aortic valve is not well visualized. Pulmonic Valve The pulmonic valve is not well visualized. Great Vessels Mildly dilated aortic root. Pericardium/Pleural No pericardial effusion. Medication Diluted definity 5.0ml given slow IV push to enhance endocardial definition. MMode/2D Measurements & Calculations LVIDd: 5.5 cm IVSd: 1.6 cm Ao root diam: 4.1 cm LVIDs: 4.7 cm LVPWd: 1.2 cm RVDd: 4.2 cm FS: 15.6 % LAV(MOD-bp): 74.5 ml LA A4 area: 21.3 cm2 LA dimension(2D): 4.8 cm LAV(MOD-bp) Indexed: 28.8 ml/m2 LAV(MOD-sp2): 77.7 ml LAV(MOD-sp4): 67.1 ml RA A4 area: 18.3 cm2 Doppler Measurements & Calculations MV E max douglas: 110.0 cm/sec Ao V2 max: 109.4 cm/sec LV V1 max: 86.0 cm/sec Ao max P.8 mmHg LV V1 max P.0 mmHg PA V2 max: 84.0 cm/sec TR max douglas: 254.9 cm/sec TR max P.0 mmHg Interpretation Summary The study was technically difficult. Contrast injection was performed. Mildly dilated left ventricle. Segmental dysfunction with preserved ejection fraction (see wall motion). The estimated ejection fraction is 55 %. The left atrium is mildly enlarged. There is mild mitral annular calcification. Extension of the mitral annular calcification onto the mitral valve leaflet. Mild (1+) mitral valve insufficiency. Mild tricuspid valve insufficiency. Mildly dilated aortic root. Right ventricular systolic pressure estimated to be 29 mmHg. Unable to assess diastolic dysfunction. Ordering Physician: Bam Campoverde Referring Physician: Bam Campoverde Performed By: Sheryl Azevedo, JOHN, RVT
[2019-11-04 00:45] LABS: Reflex Lactate? Y
--- NOTE | 2019-11-04 00:57 | NURSING ---
Pt intubated at this time. Tried to orient to room, but due to sedation he is unable to comprehend.
[2019-11-04 01:24] LABS: Erythrocyte Sedimentation Rate 100 mm/hr (0-20)
[2019-11-04 01:25] LABS: Bedside Glucose 155 mg/dL (70-110)
[2019-11-04 01:39] LABS: Lactic Acid 1.8 mmol/L (0.4-1.9)
[2019-11-04 04:03] LABS: Absolute Lymphocyte Count 0.74 X10^3/uL (0.83-4.51); Absolute Neutrophil Count 6.3 X10^3/uL (2.0-7.7); Basophil# 0.04 X10^3/uL; Basophil% 0.5 % (0-1); Eosinophil# 0.04 X10^3/uL; Eosinophils% 0.5 % (0-5); Hematocrit 27.4 % (40-54); Hemoglobin 8.3 g/dL (13.0-16.5); Lymphocyte # 0.74 X10^3/ul (4.0); Lymphocyte % 8.9 % (19-41); Mean Corp Hgb Conc 30.3 g/dL (32-36); Mean Corpuscular Hgb 29.5 pg (27.0-32.0); Mean Corpuscular Volume 97.5 fL (80-94); Mean Platelet Vol. 8.9 fl (6.2-12.0); Monocyte# 1.12 X10^3/uL; Monocyte% 13.4 % (0-10); NRBC Flagged by Analyzer 0 % (0-5); Neutrophil # 6.29 X10^3/uL (2.7-7.7); Neutrophil % 75.1 % (47-70); Platelet Count 182 K/mm3 (150-450); RBC Distribution Width CV 16.6 % (11.6-14.6); RBC Distribution Width SD 57.5 fl (35.1-43.9); Red Blood Count 2.81 M/mm3 (4.6-6.2); White Blood Count 8.4 K/mm3 (4.4-11.0)
[2019-11-04 04:08] LABS: M R Staph aureus DNA By PCR Negative (Negative); Probe Check PASS; Specimen Processing Control PASS
--- NOTE | 2019-11-04 04:08 | DIALYSIS ---
Pt completed hemodialysis treatment on 2k bath with no extra fluid remove. CVC right chest flushed with normal saline and locked with heparin to fill volume. CVC dressing changed, site pink at insertion site. Pt tolerated procedure without difficulty.
[2019-11-04 04:41] LABS: Anion Gap 5 (5-15); BUN 32 mg/dL (7-18); BUN/Creat Ratio 8.4 RATIO (10-20); Calcium,Total 7.6 mg/dL (8.5-10.1); Chloride 101 mmol/L (98-107); EST Glomerular Filtration Rate 17 mL/min (>60); Est Glom Filt Rate - Afr Amer 21 mL/min (>60); Estimated Creatinine Clearance 23.07 ml/min; Glucose 121 mg/dL (74-106); Magnesium 1.9 mg/dL (1.6-2.6); Phosphorus 4.9 mg/dL (2.5-4.9); Potassium 3.9 mmol/L (3.5-5.1); Sodium Level 138 mmol/L (136-145)
--- NOTE | 2019-11-04 04:55 | PCM.RX.CS ---
Consult Pharmacy has been consulted to manage selected antiobiotic: Vancomycin Type of Consult: New start Suspected Infection: Sepsis Prior Doses of Antibiotics Received/Current Regimen: Medications Vancomycin HCl (Vancomycin) 1,000 mg in 200 mls @ 200 mls/hr IV X1 ONE Stop: 11/07/19 12:59 Discontinued Medications Vancomycin HCl 2,000 mg/ (Sodium Chloride) 540 mls @ 250 mls/hr IV X1 ONE Stop: 11/03/19 23:39 Last Admin: 11/03/19 23:36 Dose: Infused Labs: Sodium 138 mmol/L (136-145) 11/04/19 03:40 Potassium 3.9 mmol/L (3.5-5.1) 11/04/19 03:40 Chloride 101 mmol/L (98-107) 11/04/19 03:40 Carbon Dioxide 32.0 mmol/L (21.0-32.0) 11/04/19 03:40 Anion Gap 5 (5-15) 11/04/19 03:40 BUN 32 mg/dL (7-18) H 11/04/19 03:40 Creatinine 3.80 mg/dL (0.70-1.30) H 11/04/19 03:40 Est GFR (MDRD) Af Amer 21 mL/min (>60) L 11/04/19 03:40 Est GFR (MDRD) Non-Af 17 mL/min (>60) L 11/04/19 03:40 BUN/Creatinine Ratio 8.4 RATIO (10-20) L 11/04/19 03:40 Glucose 121 mg/dL (74-106) H 11/04/19 03:40 Microbiology: Microbiology 11/03/19 20:50 Interface Orders Legionella Antigen - Final 11/03/19 20:50 Interface Orders Streptococcus pneumoniae Antigen (M - Final Weight used for dosin.8 kg Estimated Creatinine Clearance: 21 Goal Trough: 15-20 mcg/mL Pharmacy Plan for Drug Dosing: Initial vancomycin dose of 2000mg was given in ED 11/03/19 @2126. Dialysis was done early 11/04 and is planned to continue , & , so 2nd vanco dose is scheduled for 11/07 post-dialysis. Continuing pre-dialysis random vanco levels will be drawn to guide dosing. Pharmacy Service will continue to monitor and adjust dosing as required. Follow-Up Labs: Trough Vancomycin - random Labs to be done on [date and time ordered]: 11-09-19 pre-dialysis
[2019-11-04] MEDS: Levothyroxine 25 MCG TABLET PO (05:04)
[2019-11-04 06:01] LABS: Blood Gas Specimen Type VEN
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
[2019-11-04 08:05] LABS: AST(SGOT) 366 U/L (15-37); Alanine Aminotransfer ALT/SGPT 246 U/L (16-61); Albumin, Serum 2.4 g/dL (3.2-5.0); Alkaline Phosphatase 203 U/L (45-117); Bilirubin, Direct 0.32 mg/dL (0.00-0.30); Globulin 4.8 g/dL (2.2-4.2); Protein, Total 7.2 g/dL (6.4-8.2)
[2019-11-04] MEDS: Chlorhexidine 15 ML PO ×2 (10:13→21:46)
[2019-11-04] MEDS: Famotidine 20 MG Tablet PO (10:14)
[2019-11-04] MEDS: Midodrine HCl 5 MG Tablet 10 MG PO (10:14)
[2019-11-04] MEDS: APIXABAN 5 MG TABLET PO (10:14)
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
--- NOTE | 2019-11-04 11:40 | US_ITS ---
STUDY: ABDOMINAL ULTRASOUND - RIGHT UPPER QUADRANT REASON FOR VISIT: Male, 59 years old elevated liver enzymes. TECHNIQUE: Ultrasound evaluation of the right upper quadrant was performed with real-time and static bermudez-scale imaging. TECHNICAL QUALITY: Limited. Examination limited due to a combination of factors including obesity and bowel gas. COMPARISON: None. FINDINGS: Liver: The liver measures 21.9 cm. There is increased echogenicity consistent with fatty infiltration. The bile ducts are within normal limits. There is hepatic color flow. The direction of portal flow is hepatopetal. Within the left liver lobe there is a round, hyperechoic lesion measuring 3.7 x 5.0 x 2.4 cm which could represent nonspecific hemangioma versus other type of lesion. Gallbladder: The gallbladder is not visualized. Common Bile Duct (C.B.D.): The common bile duct measures 5 mm. Pancreas: There is nonvisualization of the pancreas. Right Kidney: Normal size of the right kidney. The right kidney measures 11.1 x 5.1 x 6.3 cm. Normal renal cortex. The right cortex measures 1.8 cm. There is no demonstrated renal mass or cyst. There is no right hydronephrosis. Ascites. US/Liver IMPRESSION: Limited exam. Diffuse fatty liver. Ascites. Left liver lobe lesion, as described above and suggestive of hemangioma. Neoplastic process cannot be excluded. If indicated, benign etiology can be assessed with CT of the abdomen, three-phase protocol. Electronically Signed: Hayde Malcolm MD at 1:38 EST , Service support ,
[2019-11-04 13:57] LABS: Thyroid Stim Hormone (TSH) 2.07 uIU/mL (0.358-3.74)
--- NOTE | 2019-11-04 16:12 | DIALYSIS ---
HD x3 hours completed, patient tolerated well, UF 1500mL, accessed via right chest tunneled dialysis catheter, stable treatment
--- NOTE | 2019-11-04 18:09 | PCM.CONS.GEN ---
Reason for Consult Date of Consultation: 11/04/19 Reason for Consultation: esrd HK History of Present Illness: The patient is a 59 year old M with a past medical history of end-stage renal disease heart failure who presented with a chief complaint of altered mental status. The patient was intubated for airway protection considering his confusion. Per chart he responded to noxious stimuli of chest rubbing on arrival in the emergency room. He had some strawberry milk urine per notes after Haro catheter was placed. His potassium was 8.3 so emergency dialysis was performed last night. He was treated apparently for dehydration at another emergency department the day before presenting here. Review of systems cannot be obtained as the patient is intubated. Apparently he has chronic hypotension and he was taking midodrine as outpatient for that and a systolic blood pressure of 80 was used to hold UF with dialysis per outpatient dialysis notes obtained. Past Medical History Medical History: Medical History (Last Reviewed 11/04/19 @ 03:46 by Bam Campoverde MD) Heart failure I50.9 Allergies Unable to Assess Allergy (Verified 11/03/19 21:17) Home Medications: Ambulatory Orders Medication Instructions Recorded ALPRAZolam [Xanax] 0.25 mg PO TID 11/03/19 Apixaban [Eliquis] 5 mg PO BID 11/03/19 Atorvastatin Calcium 40 mg PO QHS 11/03/19 Carvedilol 3.125 mg PO BID 11/03/19 Gabapentin [Neurontin] 300 mg PO BID 11/03/19 Levothyroxine 25 mg PO DAILY 11/03/19 Midodrine HCl 10 mg PO DAILY 11/03/19 Surgical History: coronary bypass surgery, pacemaker implantation, - Psychiatric History: Anxiety Lives: With Family Smoking Status: Former smoker - Patient used to to chew tobacco but now he has quit Alcohol: None - *Family History Maternal History Items: Cancer Paternal History Items: Diabetes, Hypertension Review of Systems Eyes: Reports: - - The patient is intubated so review of systems cannot be obtained. Patient Problems: Active and Suspected Problems (Last Reviewed 11/04/19 @ 03:46 by Bam Campoverde MD) Septic shock (Suspected) Hyperkalemia (Acute) Renal failure (Acute) Pneumonia (Acute) Urinary tract infection (Suspected) Shock liver (Acute) Acute respiratory failure with hypoxia and hypercarbia (Suspected) - Physical Exam Vitals/I&O's: Vital Signs Temp Pulse Resp BP Pulse Ox 98.2 F 86 18 101/48 L 95 11/04/19 16:00 11/04/19 17:00 11/04/19 17:00 11/04/19 17:00 11/04/19 17:00 Oxygen Flow Rate (L/min) 40 Oxygen Delivery Method Mechanical Ventilator Weight: 143.7 kg Body Mass Index (BMI) 41.5 Finger Stick Blood Glucose 177 Intake and Output for Last 24 Hours 11/02/19 11/03/19 11/04/19 23:59 23:59 23:59 Intake Total 3160.40 / 3161.33 1776.97 / 1776.97 Output Total 1855 / 1855 Balance 3160.40 / 3161.33 -78.03 / -78.03 General: Alert, Cooperative HEENT: Atraumatic, PERRLA, Normocephalic Neck: Supple, Negative Carotid Bruits, - - Intubated OG tube in place Lungs: Clear to auscultation, Normal air movement Cardiovascular: Regular rate, No murmurs Abdomen: Bowel Sounds Present, Soft, Non Tender, Obese Extremities: No edema, Capillary Refill Less than 3 Seconds Skin: No rashes, No breakdown Musculoskeletal: No Tenderness to Palpation of Joints or Extremities, - - Bandages lower extremity no discharge Neurological: - - Follows simple commands Psych/Mental Status: Normal Affect, Appropriate Microbiology Past 72 Hours 11/03/19 20:50 Urine Catheter - Catheter Urine Culture - Preliminary 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 11/03/19 20:50 Interface Orders Legionella Antigen - Final 11/03/19 20:50 Interface Orders Streptococcus pneumoniae Antigen (M - Final Laboratory Results 11/03/19 20:45: WBC 9.4, RBC 3.26 L, Hgb 9.7 L, Hct 32.7 L, MCV 100.3 H, MCH 29.8, MCHC 29.7 L, RDW Std Deviation 59.3 H, RDW Coeff of Melissa 16.3 H, Plt Count 229, MPV 9.2, Immature Gran % (Auto) 1.500 H, Neut % (Auto) 78.1 H, Lymph % (Auto) 7.8 L, [place] % (Auto) 12.0 H, Eos % (Auto) 0.1, Baso % (Auto) 0.5, Absolute Neuts (auto) 7.4, Absolute Lymphs (auto) 0.74 L, Nucleated RBC % 0 11/03/19 20:45: PT 23.0 H, INR 2.0, APTT 40.5 H 11/03/19 20:45: Sodium 136, Potassium 8.3 H*, Chloride 97 L, Carbon Dioxide 26.0, Anion Gap 13, BUN 69 H, Creatinine 7.44 H*, Estim Creat Clear Calc 21.25, Est GFR (MDRD) Af Amer TNP, Est GFR (MDRD) Non-Af TNP, BUN/Creatinine Ratio 9.3 L, Glucose 202 H, Calcium 8.9, Total Bilirubin 1.10 H, AST 341 H, ALT 219 H, Alkaline Phosphatase 251 H, Total Protein 8.6 H, Albumin 2.9 L, Globulin 5.7 H, Albumin/Globulin Ratio 0.5 L 11/03/19 20:45: Lactic Acid 5.0 H* 11/03/19 20:45: C-React Prot Ext Range 163.00 H 11/03/19 20:45: ESR 100 H 11/03/19 20:50: Urine Color SEE COMMENT BELOW, Urine Clarity Turbid, Urine pH 7.0, Ur Specific [place] 1.010, Urine Protein 500 H, Urine Glucose (UA) Normal, Urine Ketones Negative, Urine Occult Blood 250 H, Urine Nitrite Negative, Urine Bilirubin Negative, Urine Urobilinogen Normal, Ur Leukocyte Esterase 500 H, Urine RBC 10-25 SEEN, Urine WBC >100 SEEN, Ur Squamous Epith Cells 0 SEEN, Urine Bacteria 1+, Urine Mucus 0 SEEN 11/03/19 21:17: Specimen Type WILI, Sample Site R Radial, pH 7.22 L, Bicarbonate Actual 26.5 H, POC Total CO2 28, Base Excess -1, O2 Saturation 71 L, O2 % 80, ABG pCO2 65.3 H, ABG pO2 46 L, Daniel Test POS, Respiration Rate 14, O2 Delivery Device Vent, Minute Volume 9.00, Vent Mode A-C, Tidal Volume 500, POC PEEP 5, Blood Gas Notified Whom ED , Blood Gas Notified Time 210911/03/19 21:23: POC Glucose 177 H 11/04/19 00:55: Hep B Core Total Ab Pending, Hep B Core IgM Ab Pending 11/04/19 00:55: Hep Bs Antigen Pending, Hep Bs Antibody Pending 11/04/19 01:10: Lactic Acid 1.8 11/04/19 01:22: POC Glucose 155 H 11/04/19 01:25: MRSA (PCR) Negative 11/04/19 03:40: WBC 8.4, RBC 2.81 L, Hgb 8.3 L, Hct 27.4 L, MCV 97.5 H, MCH 29.5, MCHC 30.3 L, RDW Std Deviation 57.5 H, RDW Coeff of Melissa 16.6 H, Plt Count 182, MPV 8.9, Immature Gran % (Auto) 1.600 H, Neut % (Auto) 75.1 H, Lymph % (Auto) 8.9 L, [place] % (Auto) 13.4 H, Eos % (Auto) 0.5, Baso % (Auto) 0.5, Absolute Neuts (auto) 6.3, Absolute Lymphs (auto) 0.74 L, Nucleated RBC % 0 11/04/19 03:40: Sodium 138, Potassium 3.9, Chloride 101, Carbon Dioxide 32.0, Anion Gap 5, BUN 32 H, Creatinine 3.80 H, Estim Creat Clear Calc 23.07, Est GFR (MDRD) Af Amer 21 L, Est GFR (MDRD) Non-Af 17 L, BUN/Creatinine Ratio 8.4 L, Glucose 121 H, Calcium 7.6 L, Phosphorus 4.9, Magnesium 1.9, C-React Prot Ext Range Cancelled 11/04/19 03:50: Total Bilirubin 0.90, Direct Bilirubin 0.32 H, AST 366 H, ALT 246 H, Alkaline Phosphatase 203 H, Total Protein 7.2, Albumin 2.4 L, Globulin 4.8 H 11/04/19 03:50: TSH 2.07 Current Medications Acetaminophen (Tylenol) 650 mg PO Q6H PRN PRN PRN Reason: Pain Score 1-10/Temp > 100.7 F Apixaban (Eliquis) 5 mg GT BID [facility] Atorvastatin Calcium (Lipitor) 40 mg GT QHS [facility] Chlorhexidine Gluconate () 15 ml PO BID [facility] Last Admin: 11/04/19 10:13 Dose: 15 ml Documented by: Famotidine (Pepcid) 20 mg GT BID [facility] Glucagon () 1 mg IM .X1 PRN PRN Reason: Hypoglycemia Heparin Sodium (Porcine) () 2,500 units IV UD PRN PRN Reason: Dialysis Cath Heparin Flush Fentanyl () 100 mls @ 2.5 mls/hr IV UD [facility]; Protocol Last Titration: 11/04/19 18:00 Dose: 25 mcg/hr, 2.5 mls/hr Documented by: Propofol (Diprivan) 1,000 mg in 100 mls @ 8.646 mls/hr CONT INF .[id number] [facility]; Protocol Last Titration: 11/04/19 17:00 Dose: 0 mcg/kg/min, 0 mls/hr Documented by: Sodium Chloride () 250 mls @ 15 mls/hr IV .[id number] PRN PRN Reason: Saline Flush Last Infusion: 11/04/19 12:00 Dose: 0 mls/hr Documented by: Piperacillin Sod/Tazobactam (Sod 3.375 gm/ Sodium Chloride) 50 mls @ 12.5 mls/hr IV Q8 [facility] Last Admin: 11/04/19 17:09 Dose: 12.5 mls/hr Documented by: Vancomycin IV Pharmacy to Dose (2,000 ea/ Sodium Chloride) 500 mls @ 250 mls/hr IV PRN PRN; Protocol Dextrose (Dextrose 10%-Water) 250 mls @ 999 mls/hr IV X1 PRN; Protocol PRN Reason: HYPOGLYCEMIA Vancomycin HCl (Vancomycin) 1,000 mg in 200 mls @ 200 mls/hr IV X1 ONE Stop: 11/07/19 12:59 Levothyroxine Sodium (Synthroid) 25 mcg GT DAILY@0600 [facility] Midodrine (Proamatine) 10 mg GT DAILY [facility] Sodium Chloride () 10 ml IV UD PRN PRN Reason: Dialysis Catheter Flush Sodium Chloride () 10 - 40 ml IV UD PRN PRN Reason: SALINE FLUSH Assessment/Plan All Active Problems (Last Reviewed 11/04/19 @ 03:46 by Bam Campoverde MD) Hyperkalemia (Acute) Renal failure (Acute) Pneumonia (Acute) Shock liver (Acute) ESRD Hyperkalemia severe Chronic hypotension Pyuria Respiratory failure s/p intubation Heart failure The patient tolerated well dialysis last night and today will resume from now Wednesday dialysis per his schedule. Follow-up urine cultures antibiotics as per primary. Follow-up blood cultures considering especially has a right IJ tunnel catheter which does not show any signs of inflammation at this time. Potassium normalized we will continue to monitor. Use WALTER with next dialysis continue to monitor hemoglobin and transfuse as needed if hemoglobin less than 7 Monitor phosphorus and calcium and use binders while resuming p.o. if needed Thank you very much for allowing me to participate in the in the care of this patient. Please do not hesitate to call if you have any questions or concerns.
--- NOTE | 2019-11-04 18:16 | CASEMGMT ---
Case Management Progress Note: Went to patient bedside to complete initial assessment, patient Intubated and no family at bedside. CM to continue to follow for assessment completion and care coordination needs. Sonia Diaz RNCM
[2019-11-04 18:25] LABS: Bedside Glucose 92 mg/dL (70-110)
[2019-11-04] MEDS: APIXABAN 5 MG TABLET GT (21:46)
[2019-11-04] MEDS: Famotidine 20 MG Tablet GT (21:47)
[2019-11-04] MEDS: Atorvastatin Calcium 40 MG Tablet GT (21:47)
[2019-11-04] MEDS: Propofol 10MG/Ml 1,000 MG/100 ML Bottle 4.3 MG CONT INF (22:35)
[2019-11-05] VITALS (33 sets, daily range): BP systolic 80–112; BP diastolic 38–62; PULSE 81–107; RESP 14–22; TEMP 36.4–37.9; O2SAT 92–99
[2019-11-05 00:55] LABS: Bedside Glucose 91 mg/dL (70-110)
[2019-11-05] MEDS: Albumin Human 25% (100 mL) 25 GM/100 ML BAG IV ×2 (02:26→04:18)
[2019-11-05] MEDS: fentaNYL drip 100 ML 7.5 MCG IV (02:42)
[2019-11-05 04:18] LABS: Absolute Lymphocyte Count 0.88 X10^3/uL (0.83-4.51); Absolute Neutrophil Count 6.9 X10^3/uL (2.0-7.7); Basophil# 0.05 X10^3/uL; Basophil% 0.6 % (0-1); Eosinophil# 0.12 X10^3/uL; Eosinophils% 1.3 % (0-5); Hematocrit 26.2 % (40-54); Lymphocyte # 0.88 X10^3/ul (4.0); Lymphocyte % 9.9 % (19-41); Mean Corp Hgb Conc 30.5 g/dL (32-36); Mean Corpuscular Hgb 29.7 pg (27.0-32.0); Mean Corpuscular Volume 97.4 fL (80-94); Mean Platelet Vol. 8.9 fl (6.2-12.0); Monocyte# 0.87 X10^3/uL; Monocyte% 9.7 % (0-10); NRBC Flagged by Analyzer 0.2 % (0-5); Neutrophil # 6.91 X10^3/uL (2.7-7.7); Neutrophil % 77.4 % (47-70); Platelet Count 187 K/mm3 (150-450); RBC Distribution Width CV 16.1 % (11.6-14.6); RBC Distribution Width SD 57.1 fl (35.1-43.9); Red Blood Count 2.69 M/mm3 (4.6-6.2); White Blood Count 8.9 K/mm3 (4.4-11.0)
[2019-11-05] MEDS: Levothyroxine 25 MCG TABLET GT (05:28)
[2019-11-05 05:34] LABS: ALB/GLOB Ratio 0.5 RATIO (0.9-2.4); AST(SGOT) 176 U/L (15-37); Alanine Aminotransfer ALT/SGPT 211 U/L (16-61); Albumin, Serum 2.3 g/dL (3.2-5.0); Alkaline Phosphatase 163 U/L (45-117); Anion Gap 5 (5-15); BUN 27 mg/dL (7-18); BUN/Creat Ratio 7.1 RATIO (10-20); Chloride 101 mmol/L (98-107); Creatinine, Serum 3.79 mg/dL (0.70-1.30); EST Glomerular Filtration Rate 17 mL/min (>60); Est Glom Filt Rate - Afr Amer 21 mL/min (>60); Estimated Creatinine Clearance 23.13 ml/min; Globulin 4.4 g/dL (2.2-4.2); Glucose 89 mg/dL (74-106); Potassium 4.3 mmol/L (3.5-5.1); Protein, Total 6.7 g/dL (6.4-8.2); Sodium Level 138 mmol/L (136-145)
[2019-11-05 06:46] LABS: Blood Gas Specimen Type VEN; FI02 30; O2 Delivery Device Vent; PEEP 5; PS 5; SITE L Brachial; Time Given 640; VBG BASE EXCESS 7 mmol/L (-1.0-3.5); VBG Bicarbonate 32 mmol/L (22-26); VBG Oxygen Content 34 mmol/L (23-33); VBG PO2 21 mmHg (25-40); VBG SO2 32 % (50-70); VBG pH 7.39 (7.32-7.42)
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
[2019-11-05 10:54] LABS: Ferritin 1857 ng/mL (26-388); Iron 30 ug/dL (65-175); Iron Binding Capacity,Total 169 ug/dL (250-450); PERCENT IRON SATURATION 17.8 % (15.0-55.0)
[2019-11-05] MEDS: Silver Sulfadiazine 1% Crm 50 gm Bottle 1 APPLIC TOPICAL ×2 (11:40→21:50)
[2019-11-05] MEDS: Famotidine 20 MG Tablet PO (11:41)
[2019-11-05] MEDS: Midodrine HCl 5 MG Tablet 10 MG PO (11:41)
[2019-11-05] MEDS: APIXABAN 5 MG TABLET PO ×2 (11:41→21:51)
[2019-11-05] MEDS: Polyethylene Glycol 3350 17 GM PACKET PO (11:42)
[2019-11-05] MEDS: Menthol/Lanolin/Calamine/Znox 113 GM Tube 1 APPLIC TOPICAL (21:50)
[2019-11-05] MEDS: Atorvastatin Calcium 40 MG Tablet PO (21:52)
[2019-11-06] VITALS (18 sets, daily range): BP systolic 86–108; BP diastolic 41–62; PULSE 70–91; RESP 14–21; TEMP 36.2–37.2; O2SAT 95–100
[2019-11-06 04:56] LABS: Absolute Lymphocyte Count 1.01 X10^3/uL (0.83-4.51); Absolute Neutrophil Count 6.1 X10^3/uL (2.0-7.7); Basophil# 0.05 X10^3/uL; Basophil% 0.6 % (0-1); Eosinophil# 0.25 X10^3/uL; Hematocrit 26.9 % (40-54); Lymphocyte # 1.01 X10^3/ul (4.0); Lymphocyte % 12.1 % (19-41); Mean Corp Hgb Conc 29.7 g/dL (32-36); Mean Corpuscular Hgb 29.6 pg (27.0-32.0); Mean Corpuscular Volume 99.6 fL (80-94); Mean Platelet Vol. 8.6 fl (6.2-12.0); Monocyte# 0.85 X10^3/uL; Monocyte% 10.2 % (0-10); NRBC Flagged by Analyzer 0 % (0-5); Neutrophil # 6.11 X10^3/uL (2.7-7.7); Neutrophil % 72.9 % (47-70); Platelet Count 177 K/mm3 (150-450); RBC Distribution Width CV 16.1 % (11.6-14.6); RBC Distribution Width SD 57.3 fl (35.1-43.9); White Blood Count 8.4 K/mm3 (4.4-11.0)
[2019-11-06 05:17] LABS: ALB/GLOB Ratio 0.6 RATIO (0.9-2.4); AST(SGOT) 114 U/L (15-37); Alanine Aminotransfer ALT/SGPT 183 U/L (16-61); Albumin, Serum 2.6 g/dL (3.2-5.0); Alkaline Phosphatase 175 U/L (45-117); Anion Gap 7 (5-15); BUN 40 mg/dL (7-18); BUN/Creat Ratio 7.7 RATIO (10-20); Calcium,Total 8.1 mg/dL (8.5-10.1); Chloride 98 mmol/L (98-107); Creatinine, Serum 5.18 mg/dL (0.70-1.30); EST Glomerular Filtration Rate 12 mL/min (>60); Est Glom Filt Rate - Afr Amer 15 mL/min (>60); Estimated Creatinine Clearance 16.92 ml/min; Globulin 4.7 g/dL (2.2-4.2); Glucose 110 mg/dL (74-106); Potassium 4.5 mmol/L (3.5-5.1); Protein, Total 7.3 g/dL (6.4-8.2); Sodium Level 136 mmol/L (136-145)
[2019-11-06] MEDS: Levothyroxine 25 MCG TABLET PO (05:44)
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
[2019-11-06 09:25] LABS: Hepatitis B Surface Antibody Non-Reactive; Hepatitis B Surface Antigen Non-Reactive (Nonreactive)
[2019-11-06] MEDS: Famotidine 20 MG Tablet PO (09:43)
[2019-11-06] MEDS: Midodrine HCl 5 MG Tablet 10 MG PO (09:43)
[2019-11-06] MEDS: Silver Sulfadiazine 1% Crm 50 gm Bottle 1 APPLIC TOPICAL ×2 (09:44→22:10)
[2019-11-06] MEDS: Menthol/Lanolin/Calamine/Znox 113 GM Tube 1 APPLIC TOPICAL ×2 (09:44→22:09)
--- NOTE | 2019-11-06 10:27 | NURSING ---
report called to Kat HINOJOSA RN at [phone]
[2019-11-06] MEDS: 0.9% Saline Lock 10 ML Syringe IV (11:40)
[2019-11-06 11:50] LABS: Bedside Glucose 206 mg/dL (70-110)
[2019-11-06] MEDS: Insulin Lispro 100 UNIT/ML INSULN.PEN SC ×3 (12:28→22:06)
--- NOTE | 2019-11-06 13:17 | PN_ITS ---
Patient Problems: Active and Suspected Problems (Last Reviewed 11/04/19 @ 03:46 by Bam Campoverde MD) Septic shock (Suspected) Hyperkalemia (Acute) Renal failure (Acute) Pneumonia (Acute) Urinary tract infection (Suspected) Shock liver (Acute) Acute respiratory failure with hypoxia and hypercarbia (Suspected) Subjective: The patient has no complaints no shortness of breath no chest pain - Physical Exam Vitals/I&O's: Vital Signs Temp Pulse Resp BP Pulse Ox 97.5 F L 79 18 92/49 L 96 11/06/19 10:46 11/06/19 11:07 11/06/19 10:46 11/06/19 10:46 11/06/19 10:46 Oxygen Flow Rate (L/min) 2 Oxygen Delivery Method Nasal Cannula Weight: 143.5 kg Body Mass Index (BMI) 41.5 Finger Stick Blood Glucose 177 Intake and Output for Last 24 Hours 11/04/19 11/05/19 11/06/19 23:59 23:59 23:59 Intake Total 1947.53 / 1951.28 833.75 / 833.75 233.75 / 233.75 Output Total 1865 / 1870 35 / 35 0 / 0 Balance 82.53 / 81.28 798.75 / 798.75 233.75 / 233.75 General: Alert HEENT: Atraumatic, PERRLA, EOMI, Normocephalic Neck: Supple, No JVD, Negative Carotid Bruits Lungs: Clear to auscultation, Normal air movement Cardiovascular: Regular rate, No murmurs Abdomen: Bowel Sounds Present, Soft, Non Tender, Obese Extremities: No edema, Capillary Refill Less than 3 Seconds Skin: No rashes, No breakdown Musculoskeletal: No Tenderness to Palpation of Joints or Extremities, - - Right IJ tunneled dialysis catheter no signs of inflammation no discharge Neurological: Cranial nerves II-XII grossly intact Psych/Mental Status: Normal Affect, Appropriate Comment: Bandages both feet bilaterally Microbiology Past 72 Hours 11/03/19 20:51 Blood Culture (Wb) - Left Wrist Blood Culture - Preliminary No growth in 48 hours. 11/03/19 20:45 Blood Culture (Wb) - Anticubital Right Blood Culture - Preliminary No growth in 48 hours. 11/04/19 16:21 Sputum, Induced/Lukens Gram Stain - Final 11/04/19 16:21 Sputum, Induced/Lukens Respiratory Culture - Preliminary 11/06/19 04:35 Stool Stool Occult Blood (JANET) - Final Occult Blood Positive 11/03/19 20:50 Urine Catheter - Catheter Urine Culture - Final Klebsiella pneumoniae sp pneum 11/03/19 20:50 Interface Orders Legionella Antigen - Final 11/03/19 20:50 Interface Orders Streptococcus pneumoniae Antigen (M - Final Laboratory Results 11/04/19 00:55: Hep Bs Antigen Non-Reactive, Hep Bs Antibody Non-Reactive 11/06/19 04:35: WBC 8.4, RBC 2.70 L, Hgb 8.0 L, Hct 26.9 L, MCV 99.6 H, MCH 29.6, MCHC 29.7 L, RDW Std Deviation 57.3 H, RDW Coeff of Melissa 16.1 H, Plt Count 177, MPV 8.6, Immature Gran % (Auto) 1.200 H, Neut % (Auto) 72.9 H, Lymph % (Auto) 12.1 L, [place] % (Auto) 10.2 H, Eos % (Auto) 3.0, Baso % (Auto) 0.6, Absolute Neuts (auto) 6.1, Absolute Lymphs (auto) 1.01, Nucleated RBC % 0 11/06/19 04:35: Sodium 136, Potassium 4.5, Chloride 98, Carbon Dioxide 31.0, Anion Gap 7, BUN 40 H, Creatinine 5.18 H, Estim Creat Clear Calc 16.92, Est GFR (MDRD) Af Amer 15 L, Est GFR (MDRD) Non-Af 12 L, BUN/Creatinine Ratio 7.7 L, Glucose 110 H, Calcium 8.1 L, Total Bilirubin 1.00, AST 114 H, ALT 183 H, Alkaline Phosphatase 175 H, Total Protein 7.3, Albumin 2.6 L, Globulin 4.7 H, Albumin/Globulin Ratio 0.6 L 11/06/19 11:48: POC Glucose 206 H Current Medications Acetaminophen (Tylenol) 650 mg PO Q6H PRN PRN PRN Reason: Pain Score 1-10/Temp > 100.7 F Apixaban (Eliquis) 5 mg PO BID [facility] Last Admin: 11/05/19 21:51 Dose: 5 mg Documented by: Atorvastatin Calcium (Lipitor) 40 mg PO QHS [facility] Last Admin: 11/05/19 21:52 Dose: 40 mg Documented by: Calamine/Phenol (Calmoseptine Ointment) 1 applic TOPICAL BID [facility]; Protocol Last Admin: 11/06/19 09:44 Dose: 1 applicatio Documented by: Glucagon () 1 mg IM .X1 PRN PRN Reason: Hypoglycemia Heparin Sodium (Porcine) () 2,500 units IV UD PRN PRN Reason: Dialysis Cath Heparin Flush Sodium Chloride () 250 mls @ 15 mls/hr IV .[id number] PRN PRN Reason: Saline Flush Last Infusion: 11/06/19 12:31 Dose: 0 mls/hr Documented by: Dextrose (Dextrose 10%-Water) 250 mls @ 999 mls/hr IV X1 PRN; Protocol PRN Reason: HYPOGLYCEMIA Ceftriaxone Sodium 2 gm/ (Sodium Chloride) 50 mls @ 100 mls/hr IV Q24 [facility] Last Infusion: 11/06/19 12:10 Dose: Infused Documented by: Insulin Human Lispro (Humalog [place] ([facility])) 0 unit SC ACHS [facility]; Protocol Last Admin: 11/06/19 12:28 Dose: 2 units Documented by: Levothyroxine Sodium (Synthroid) 25 mcg PO DAILY@0600 [facility] Last Admin: 11/06/19 05:44 Dose: 25 mcg Documented by: Midodrine (Proamatine) 10 mg PO DAILY [facility] Last Admin: 11/06/19 09:43 Dose: 10 mg Documented by: Pantoprazole Sodium (Protonix) 40 mg PO DAILY [facility] Last Admin: 11/06/19 10:00 Dose: Not Given Documented by: Polyethylene Glycol (Miralax) 17 gm PO BID [facility] Last Admin: 11/06/19 09:43 Dose: Not Given Documented by: Senna/Docusate Sodium (Senokot-S, Emily-Colace) 1 tablet PO BID [facility] Last Admin: 11/06/19 09:44 Dose: Not Given Documented by: Silver Sulfadiazine (Silvadene (Bkc)) 1 applic TOPICAL BID [facility]; Protocol Last Admin: 11/06/19 09:44 Dose: 1 applicatio Documented by: Sodium Chloride () 10 ml IV UD PRN PRN Reason: Dialysis Catheter Flush Sodium Chloride () 10 - 40 ml IV UD PRN PRN Reason: SALINE FLUSH Last Admin: 11/06/19 11:40 Dose: 10 ml Documented by: Medical Necessity - Tobacco Use Smoking Status: Former smoker - Patient used to to chew tobacco but now he has quit Assessment/Plan All Active Problems (Last Reviewed 11/04/19 @ 03:46 by Bam Campoverde MD) Hyperkalemia (Acute) Renal failure (Acute) Pneumonia (Acute) Shock liver (Acute) ESRD Hyperkalemia severe resolved Klebsiella UTI Chronic hypotension Respiratory failure s/p extubation Heart failure will resume from now Wednesday dialysis per his schedule. antibiotics as per primary. netative at 48 hours blood cultures Potassium normalized we will continue to monitor. Use WALTER with next dialysis continue to monitor hemoglobin and transfuse as needed if hemoglobin less than 7 Monitor phosphorus and calcium and use binders while resuming p.o. if needed
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
--- NOTE | 2019-11-06 15:15 | PCM.CONS.C ---
Reason for Consult Date of Consultation: 11/06/19 Reason for Consultation: Preoperative cardiac evaluation History of Present Illness: The patient is a 59 year old M [] The patient is a 59 year old M, with unclear past medical history, who presented to [facility] on 11/03/2019 with change in mental status. Patient reportedly had been hypoxic and altered at home after being discharged from a rehab facility. Patient reportedly has peripheral vascular disease and recently had significant burgos on his left foot requiring extended care facility. Patient had not felt well on and then skipped his hemodialysis and son reportedly stated that he started to become more confused and unresponsive through the day on Wednesday.In the ER, patient was noted to have significant hyperkalemia that was treated with calcium, IV insulin and D50. Patient was known to have an acidosis and a urinalysis consistent with infection. Patient was initiated on Zosyn and vancomycin, along with IV fluids. Given patient's mental status and concern for acidosis, patient was intubated with rapid sequence intubation. Patient was then transferred to the intensive care unit for further evaluation. The patient was treated in the intensive care unit and successfully discharged to the progressive care unit. He was noted to have a reduction in his hemoglobin and was scheduled to have a colonoscopy he was evaluated by the general surgeon and or anesthesia and it was determined that because the patient said that he had a previous ejection fraction of 35% and may need a defibrillator cardiology needed to see this patient. An echocardiogram performed during this admission however has documented an ejection fraction of 55% with mild segmental wall motion abnormality involving the apex. Patient denies any chest pain or shortness of breath. Past Medical History Allergies/Adverse Reactions: Allergies No Known Allergies Allergy (Verified 11/05/19 11:38) Home Medications: Ambulatory Orders Medication Instructions Recorded ALPRAZolam [Xanax] 0.25 mg PO TID 11/03/19 Apixaban [Eliquis] 5 mg PO BID 11/03/19 Atorvastatin Calcium 40 mg PO QHS 11/03/19 Carvedilol 3.125 mg PO BID 11/03/19 Gabapentin [Neurontin] 300 mg PO BID 11/03/19 Levothyroxine 25 mg PO DAILY 11/03/19 Midodrine HCl 10 mg PO DAILY 11/03/19 Surgical History: coronary bypass surgery, pacemaker implantation, - Psychiatric History: Anxiety - *Family History Maternal History Items: Cancer Paternal History Items: Diabetes, Hypertension Lives: With Family Smoking Status: Former smoker - Patient used to to chew tobacco but now he has quit Alcohol: None Review of Systems - Review of Systems General: Reports: Fever, Fatigue. Denies: Malaise, Night Sweats HEENT: Denies: Vision Change Cardiovascular: Denies: Chest Discomfort, Shortness of Breath, Orthopnea, PND, Peripheral Edema, Palpitations, Lightheadedness, Dizziness, Near Syncope, Syncope Respiratory: Denies: Cough, Sputum Production, Hemoptysis Gastrointestinal: Denies: Hematemesis, Hematochezia, Melena Genitourinary: Denies: Dysuria, Hematuria Muscoloskeletal: Denies: Myalgias Skin: Denies: Rash Neurological: Reports: Weakness. Denies: Dizziness Psychiatric: Denies: Anxiety Endocrine: Denies: Heat Intolerance Subjectve: Middle-aged man in no distress Objective: Vital Signs Temp Pulse Resp BP Pulse Ox 97.5 F L 79 18 92/49 L 96 11/06/19 10:46 11/06/19 11:07 11/06/19 10:46 11/06/19 10:46 11/06/19 10:46 Oxygen Flow Rate (L/min) 2 Oxygen Delivery Method Nasal Cannula Weight: 316 lb 5.813 oz Body Mass Index (BMI) 41.5 Finger Stick Blood Glucose 177 Intake and Output for Last 24 Hours 11/04/19 11/05/19 11/06/19 23:59 23:59 23:59 Intake Total 1947.53 / 1951.28 833.75 / 833.75 233.75 / 233.75 Output Total 1865 / 1870 35 / 35 0 / 0 Balance 82.53 / 81.28 798.75 / 798.75 233.75 / 233.75 General: Awake, Alert, Oriented x 3, Ill Appearing HEENT: PERRL, EOMI, Sclera Non Icteric Neck: Supple, Good ROM, No Lymph Node Enlargement Lungs: Clear to auscultation Cardiovascular: Regular Rhythm, Normal S1, Normal S2, No Murmurs, No Rubs, No Gallops Vascular: No Carotid Bruits, Normal Femoral Pulses, Normal Radial Pulses, Normal Dorsalis Pedal Pulse, Normal Posterior Tibial Pulses Abdomen: Bowel Sounds Present, Soft, Non Tender, No HSM, No Organomegaly Extremities: No Cyanosis, No Clubbing, - - Severe excoriations left multiple toe amputees and dryness noted Musculoskeletal: No Erythema Skin: No Rashes Lymphatic: No Lymph Node Enlargement Neurological: No Focal Motor or Sensory Deficit Psych/Mental Status: Appropriate 11/06/19 04:35: WBC 8.4, RBC 2.70 L, Hgb 8.0 L, Hct 26.9 L, MCV 99.6 H, MCH 29.6, MCHC 29.7 L, Plt Count 177, MPV 8.6, Immature Gran % (Auto) 1.200 H, Neut % (Auto) 72.9 H, Lymph % (Auto) 12.1 L, [place] % (Auto) 10.2 H, Eos % (Auto) 3.0, Baso % (Auto) 0.6, Absolute Neuts (auto) 6.1, Nucleated RBC % 0 11/06/19 04:35: Sodium 136, Potassium 4.5, Chloride 98, Carbon Dioxide 31.0, Anion Gap 7, BUN 40 H, Creatinine 5.18 H, Est GFR (MDRD) Af Amer 15 L, Est GFR (MDRD) Non-Af 12 L, BUN/Creatinine Ratio 7.7 L, Glucose 110 H, Calcium 8.1 L, Total Bilirubin 1.00 Rhythm: EKG: Ventricular paced rhythm ECHO: Preserved ejection fraction of 55% with segmental wall motion abnormalities involving the apex right ventricular systolic pressure of 29 mmHg Stress Test: Cardiac Cath: PCI: CT Surgery: Holter monitor: EPS: PPM: CXR: Chest CT Scan: Assessment/Plan 1. Preoperative cardiac evaluation Patient's preoperative cardiac evaluation for colonoscopy appears to be stable. This appears to be a low risk procedure. The anticoagulation can be held at this time. His ejection fraction is normal and I do not see a contraindication to him undergoing the procedure at this time. After the procedure is performed he can follow-up with his primary restorative coordinator for any further therapy. Thank you for allowing me to participate in the care of your patient. Please don't hesitate to call if any issues arise
--- NOTE | 2019-11-06 15:38 | NURSING ---
wound photo: right medial lower leg
--- NOTE | 2019-11-06 15:41 | NURSING ---
wound photo: right lateral lower leg
--- NOTE | 2019-11-06 15:42 | NURSING ---
wound photo: left foot
--- NOTE | 2019-11-06 15:43 | NURSING ---
wound photo: left foot
--- NOTE | 2019-11-06 16:23 | NURSING ---
wound photo: right lateral foot
--- NOTE | 2019-11-06 17:05 | CON.PCM_ITS ---
Problem List (1) Anemia Status: Acute Qualifiers: Anemia type: unspecified type Qualified Code(s): D64.9 - Anemia, unspecified Reason for Consult Date of Consultation: 11/06/19 History of Present Illness: The patient is a 59 year old M who is admitted with change of mental status. The patient has not had any gross blood in his stool or any vomiting. Patient does not report any abdominal pain. He says he had a Cologuard test performed 2 years ago but has never had a colonoscopy or EGD. He is chronically on blood thinners. Past Medical History Medical History: Medical History (Last Reviewed 11/04/19 @ 03:46 by Bam Camopverde MD) Heart failure I50.9 Allergies No Known Allergies Allergy (Verified 11/05/19 11:38) Home Medications: Ambulatory Orders Medication Instructions Recorded ALPRAZolam [Xanax] 0.25 mg PO TID 11/03/19 Apixaban [Eliquis] 5 mg PO BID 11/03/19 Atorvastatin Calcium 40 mg PO QHS 11/03/19 Carvedilol 3.125 mg PO BID 11/03/19 Gabapentin [Neurontin] 300 mg PO BID 11/03/19 Levothyroxine 25 mg PO DAILY 11/03/19 Midodrine HCl 10 mg PO DAILY 11/03/19 Surgical History: coronary bypass surgery, pacemaker implantation, - Psychiatric History: Anxiety Lives: With Family Smoking Status: Former smoker - Patient used to to chew tobacco but now he has quit Alcohol: None - *Family History Maternal History Items: Cancer Paternal History Items: Diabetes, Hypertension Review of Systems Constitutional: Denies: Anorexia, Fever HEENT: Denies: Difficulty Swallowing Respiratory: Denies: Cough, Shortness of Breath Gastrointestinal: Denies: Abdominal Pain, Hematemesis, Hematochezia, Nausea, Melena, Vomiting Genitourinary: Reports: - - Chronic renal failure Musculoskeletal: Denies: Joint Tenderness Skin: Denies: Jaundice Neurological: Reports: Balance problems Hematologic/ Lymphatic: Reports: Anemia Patient Problems: Active and Suspected Problems (Last Reviewed 11/04/19 @ 03:46 by Bam Campoverde MD) Septic shock (Suspected) Hyperkalemia (Acute) Renal failure (Acute) Pneumonia (Acute) Urinary tract infection (Suspected) Shock liver (Acute) Acute respiratory failure with hypoxia and hypercarbia (Suspected) Anemia (Acute) - Physical Exam Vitals/I&O's: Vital Signs Temp Pulse Resp BP Pulse Ox 97.6 F L 70 18 100/52 L 96 11/06/19 16:43 11/06/19 16:43 11/06/19 16:43 11/06/19 16:43 11/06/19 16:43 Oxygen Flow Rate (L/min) 2 Oxygen Delivery Method Nasal Cannula Weight: 316 lb 5.813 oz Body Mass Index (BMI) 41.5 Finger Stick Blood Glucose 177 Intake and Output for Last 24 Hours 11/04/19 11/05/19 11/06/19 23:59 23:59 23:59 Intake Total 1947.53 / 1951.28 833.75 / 833.75 233.75 / 233.75 Output Total 1865 / 1870 35 0 / 0 Balance 82.53 / 81.28 798.75 / 798.75 233.75 / 233.75 General: Alert, Oriented x3 Neck: No JVD Lungs: Normal air movement Cardiovascular: Regular rate, Regular Rhythm Abdomen: Soft, Non Tender, Non-Distended Microbiology Past 72 Hours 11/03/19 20:51 Blood Culture (Wb) - Left Wrist Blood Culture - Preliminary No growth in 48 hours. 11/03/19 20:45 Blood Culture (Wb) - Anticubital Right Blood Culture - Preliminary No growth in 48 hours. 11/04/19 16:21 Sputum, Induced/Lukens Gram Stain - Final 11/04/19 16:21 Sputum, Induced/Lukens Respiratory Culture - Preliminary 11/06/19 04:35 Stool Stool Occult Blood (JANET) - Final Occult Blood Positive 11/03/19 20:50 Urine Catheter - Catheter Urine Culture - Final Klebsiella pneumoniae sp pneum 11/03/19 20:50 Interface Orders Legionella Antigen - Final 11/03/19 20:50 Interface Orders Streptococcus pneumoniae Antigen (M - Final Laboratory Results 11/04/19 00:55: Hep Bs Antigen Non-Reactive, Hep Bs Antibody Non-Reactive 11/06/19 04:35: WBC 8.4, RBC 2.70 L, Hgb 8.0 L, Hct 26.9 L, MCV 99.6 H, MCH 29.6, MCHC 29.7 L, RDW Std Deviation 57.3 H, RDW Coeff of Melissa 16.1 H, Plt Count 177, MPV 8.6, Immature Gran % (Auto) 1.200 H, Neut % (Auto) 72.9 H, Lymph % (Auto) 12.1 L, Rabun % (Auto) 10.2 H, Eos % (Auto) 3.0, Baso % (Auto) 0.6, Absolute Neuts (auto) 6.1, Absolute Lymphs (auto) 1.01, Nucleated RBC % 0 11/06/19 04:35: Sodium 136, Potassium 4.5, Chloride 98, Carbon Dioxide 31.0, Anion Gap 7, BUN 40 H, Creatinine 5.18 H, Estim Creat Clear Calc 16.92, Est GFR (MDRD) Af Amer 15 L, Est GFR (MDRD) Non-Af 12 L, BUN/Creatinine Ratio 7.7 L, Glucose 110 H, Calcium 8.1 L, Total Bilirubin 1.00, AST 114 H, ALT 183 H, Alkaline Phosphatase 175 H, Total Protein 7.3, Albumin 2.6 L, Globulin 4.7 H, Albumin/Globulin Ratio 0.6 L 11/06/19 11:48: POC Glucose 206 H Current Medications Acetaminophen (Tylenol) 650 mg PO Q6H PRN PRN PRN Reason: Pain Score 1-10/Temp > 100.7 F Apixaban (Eliquis) 5 mg PO BID [facility] Last Admin: 11/05/19 21:51 Dose: 5 mg Documented by: Atorvastatin Calcium (Lipitor) 40 mg PO QHS [facility] Last Admin: 11/05/19 21:52 Dose: 40 mg Documented by: Calamine/Phenol (Calmoseptine Ointment) 1 applic TOPICAL BID [facility]; Protocol Last Admin: 11/06/19 09:44 Dose: 1 applicatio Documented by: Glucagon () 1 mg IM .X1 PRN PRN Reason: Hypoglycemia Heparin Sodium (Porcine) () 2,500 units IV UD PRN PRN Reason: Dialysis Cath Heparin Flush Sodium Chloride () 250 mls @ 15 mls/hr IV .[id number] PRN PRN Reason: Saline Flush Last Infusion: 11/06/19 12:31 Dose: 0 mls/hr Documented by: Dextrose (Dextrose 10%-Water) 250 mls @ 999 mls/hr IV X1 PRN; Protocol PRN Reason: HYPOGLYCEMIA Ceftriaxone Sodium 2 gm/ (Sodium Chloride) 50 mls @ 100 mls/hr IV Q24 [facility] Last Infusion: 11/06/19 12:10 Dose: Infused Documented by: Insulin Human Lispro (Humalog Kwikpen (Bkc)) 0 unit SC ACHS [facility]; Protocol Last Admin: 11/06/19 16:45 Dose: 1 units Documented by: Levothyroxine Sodium (Synthroid) 25 mcg PO DAILY@0600 [facility] Last Admin: 11/06/19 05:44 Dose: 25 mcg Documented by: Midodrine (Proamatine) 10 mg PO DAILY [facility] Last Admin: 11/06/19 09:43 Dose: 10 mg Documented by: Pantoprazole Sodium (Protonix) 40 mg PO DAILY [facility] Last Admin: 11/06/19 10:00 Dose: Not Given Documented by: Polyethylene Glycol (Miralax) 17 gm PO BID [facility] Last Admin: 11/06/19 09:43 Dose: Not Given Documented by: Senna/Docusate Sodium (Senokot-S, Emily-Colace) 1 tablet PO BID [facility] Last Admin: 11/06/19 09:44 Dose: Not Given Documented by: Silver Sulfadiazine (Silvadene (Bk)) 1 applic TOPICAL BID [facility]; Protocol Last Admin: 11/06/19 09:44 Dose: 1 applicatio Documented by: Sodium Chloride () 10 ml IV UD PRN PRN Reason: Dialysis Catheter Flush Sodium Chloride () 10 - 40 ml IV UD PRN PRN Reason: SALINE FLUSH Last Admin: 11/06/19 11:40 Dose: 10 ml Documented by: Assessment/Plan All Active Problems (Last Reviewed 11/04/19 @ 03:46 by Bam Campoverde MD) Hyperkalemia (Acute) Renal failure (Acute) Pneumonia (Acute) Shock liver (Acute) Anemia (Acute) 59-year-old male with iron deficiency anemia 1. Patient received Eliquis last yesterday evening. I was consulted for EGD a nd colonoscopy due to iron deficiency anemia. Patient notes no gross blood loss. The patient was very worried about undergoing a procedure as he says only 35% of his heart was left. I discussed colonoscopy and EGD with the patient in detail. The patient reports that he had a heart catheterization and AICD was recommended for his heart. I discussed this with the patient and anesthesia and they would like a cardiology consult. Dr. Henson saw the patient and reports this is a low risk procedure and should be okay. 2. I explained endoscopy in detail to the patient. I explained the risks including but not limited to stroke or heart attack with anesthesia, perforation of the GI tract, bleeding, infection. I explained that any of these could necessitate further emergency surgery. The patient understands and all questions were answered sufficiently. The patient wishes to proceed with procedure. 3. I will discuss once more with him in the morning and plan for bowel prep tomorrow and EGD and colonoscopy on Wednesday. Continue to hold Eliquis. Khanh Brandon MD Pager: [facility] [address] [place] [address], [address] [place] [address] Office:
[2019-11-06 17:15] LABS: Bedside Glucose 163 mg/dL (70-110)
[2019-11-06] MEDS: Atorvastatin Calcium 40 MG Tablet PO (22:09)
[2019-11-06 22:20] LABS: Bedside Glucose 192 mg/dL (70-110)
[2019-11-07] VITALS (11 sets, daily range): BP systolic 94–113; BP diastolic 60–74; PULSE 83–112; RESP 16–20; TEMP 2.4–36.7; O2SAT 92–95
[2019-11-07 05:06] LABS: Hepatitis B Core Ab Total Negative (Negative)
[2019-11-07] MEDS: Levothyroxine 25 MCG TABLET PO (05:29)
[2019-11-07 05:43] LABS: ALB/GLOB Ratio 0.5 RATIO (0.9-2.4); AST(SGOT) 72 U/L (15-37); Alanine Aminotransfer ALT/SGPT 158 U/L (16-61); Albumin, Serum 2.6 g/dL (3.2-5.0); Alkaline Phosphatase 176 U/L (45-117); Anion Gap 7 (5-15); BUN 50 mg/dL (7-18); BUN/Creat Ratio 8.1 RATIO (10-20); Calcium,Total 7.7 mg/dL (8.5-10.1); Chloride 101 mmol/L (98-107); Creatinine, Serum 6.19 mg/dL (0.70-1.30); EST Glomerular Filtration Rate 10 mL/min (>60); Est Glom Filt Rate - Afr Amer 12 mL/min (>60); Estimated Creatinine Clearance 14.16 ml/min; Glucose 130 mg/dL (74-106); Potassium 4.5 mmol/L (3.5-5.1); Protein, Total 7.6 g/dL (6.4-8.2); Sodium Level 136 mmol/L (136-145)
[2019-11-07 05:55] LABS: Absolute Lymphocyte Count 0.91 X10^3/uL (0.83-4.51); Absolute Neutrophil Count 6.1 X10^3/uL (2.0-7.7); Basophil# 0.06 X10^3/uL; Basophil% 0.7 % (0-1); Eosinophil# 0.27 X10^3/uL; Eosinophils% 3.3 % (0-5); Hematocrit 29.1 % (40-54); Hemoglobin 8.7 g/dL (13.0-16.5); Lymphocyte # 0.91 X10^3/ul (4.0); Mean Corp Hgb Conc 29.9 g/dL (32-36); Mean Corpuscular Hgb 29.6 pg (27.0-32.0); Mean Platelet Vol. 8.9 fl (6.2-12.0); Monocyte# 0.87 X10^3/uL; Monocyte% 10.5 % (0-10); NRBC Flagged by Analyzer 0 % (0-5); Neutrophil # 6.08 X10^3/uL (2.7-7.7); Neutrophil % 73.2 % (47-70); Platelet Count 175 K/mm3 (150-450); RBC Distribution Width SD 56.2 fl (35.1-43.9); Red Blood Count 2.94 M/mm3 (4.6-6.2); White Blood Count 8.3 K/mm3 (4.4-11.0)
[2019-11-07 06:51] LABS: Bedside Glucose 121 mg/dL (70-110)
--- NOTE | 2019-11-07 07:48 | PCM.PN.SRG ---
Patient Problems: Active and Suspected Problems (Last Reviewed 11/04/19 @ 03:46 by Bam Campoverde MD) Septic shock (Suspected) Hyperkalemia (Acute) Renal failure (Acute) Pneumonia (Acute) Urinary tract infection (Suspected) Shock liver (Acute) Acute respiratory failure with hypoxia and hypercarbia (Suspected) Anemia (Acute) Subjective: Patient is not having any abdominal pain or blood in his stool - Physical Exam Vitals/I&O's: Vital Signs Temp Pulse Resp BP Pulse Ox 98.1 F 88 18 109/72 95 11/07/19 04:00 11/07/19 04:00 11/07/19 04:00 11/07/19 04:00 11/07/19 04:00 Oxygen Flow Rate (L/min) 2 Oxygen Delivery Method Nasal Cannula Weight: 314 lb 13.121 oz Body Mass Index (BMI) 41.5 Finger Stick Blood Glucose 177 Intake and Output for Last 24 Hours 11/05/19 11/06/19 11/07/19 23:59 23:59 23:59 Intake Total 833.75 / 833.75 353.75 / 413.75 120 / 120 Output Total 35 / 35 0 / 0 Balance 798.75 / 798.75 353.75 / 413.75 120 / 120 General: Alert, Oriented x3 Lungs: Normal air movement Cardiovascular: Regular rate, Regular Rhythm Abdomen: Soft, Non Tender, Non-Distended Microbiology Past 72 Hours 11/03/19 20:51 Blood Culture (Wb) - Left Wrist Blood Culture - Preliminary No growth in 48 hours. 11/03/19 20:45 Blood Culture (Wb) - Anticubital Right Blood Culture - Preliminary No growth in 48 hours. 11/04/19 16:21 Sputum, Induced/Lukens Gram Stain - Final 11/04/19 16:21 Sputum, Induced/Lukens Respiratory Culture - Preliminary 11/06/19 04:35 Stool Stool Occult Blood (JANET) - Final Occult Blood Positive 11/03/19 20:50 Urine Catheter - Catheter Urine Culture - Final Klebsiella pneumoniae sp pneum Laboratory Results 11/04/19 00:55: Hep Bs Antigen Non-Reactive, Hep Bs Antibody Non-Reactive 11/06/19 11:48: POC Glucose 206 H 11/06/19 16:41: POC Glucose 163 H 11/06/19 21:58: POC Glucose 192 H 11/07/19 05:02: WBC 8.3, RBC 2.94 L, Hgb 8.7 L, Hct 29.1 L, MCV 99.0 H, MCH 29.6, MCHC 29.9 L, RDW Std Deviation 56.2 H, RDW Coeff of Melissa 16.0 H, Plt Count 175, MPV 8.9, Immature Gran % (Auto) 1.300 H, Neut % (Auto) 73.2 H, Lymph % (Auto) 11.0 L, Long % (Auto) 10.5 H, Eos % (Auto) 3.3, Baso % (Auto) 0.7, Absolute Neuts (auto) 6.1, Absolute Lymphs (auto) 0.91, Nucleated RBC % 0 11/07/19 05:02: Sodium 136, Potassium 4.5, Chloride 101, Carbon Dioxide 28.0, Anion Gap 7, BUN 50 H, Creatinine 6.19 H, Estim Creat Clear Calc 14.16, Est GFR (MDRD) Af Amer 12 L, Est GFR (MDRD) Non-Af 10 L, BUN/Creatinine Ratio 8.1 L, Glucose 130 H, Calcium 7.7 L, Total Bilirubin 0.60, AST 72 H, ALT 158 H, Alkaline Phosphatase 176 H, Total Protein 7.6, Albumin 2.6 L, Globulin 5.0 H, Albumin/Globulin Ratio 0.5 L 11/07/19 06:44: POC Glucose 121 H Current Medications Acetaminophen (Tylenol) 650 mg PO Q6H PRN PRN PRN Reason: Pain Score 1-10/Temp > 100.7 F Apixaban (Eliquis) 5 mg PO BID [facility] Last Admin: 11/05/19 21:51 Dose: 5 mg Documented by: Atorvastatin Calcium (Lipitor) 40 mg PO QHS [facility] Last Admin: 11/06/19 22:09 Dose: 40 mg Documented by: Calamine/Phenol (Calmoseptine Ointment) 1 applic TOPICAL BID [facility]; Protocol Last Admin: 11/06/19 22:09 Dose: 1 applicatio Documented by: Glucagon () 1 mg IM .X1 PRN PRN Reason: Hypoglycemia Heparin Sodium (Porcine) () 2,500 units IV UD PRN PRN Reason: Dialysis Cath Heparin Flush Sodium Chloride () 250 mls @ 15 mls/hr IV .[id number] PRN PRN Reason: Saline Flush Last Infusion: 11/06/19 12:31 Dose: 0 mls/hr Documented by: Dextrose (Dextrose 10%-Water) 250 mls @ 999 mls/hr IV X1 PRN; Protocol PRN Reason: HYPOGLYCEMIA Ceftriaxone Sodium 2 gm/ (Sodium Chloride) 50 mls @ 100 mls/hr IV Q24 [facility] Last Infusion: 11/06/19 12:10 Dose: Infused Documented by: Insulin Human Lispro (Humalog Kwikpen (Bkc)) 0 unit SC ACHS [facility]; Protocol Last Admin: 11/07/19 06:46 Dose: Not Given Documented by: Levothyroxine Sodium (Synthroid) 25 mcg PO DAILY@0600 [facility] Last Admin: 11/07/19 05:29 Dose: 25 mcg Documented by: Midodrine (Proamatine) 10 mg PO DAILY [facility] Last Admin: 11/06/19 09:43 Dose: 10 mg Documented by: Pantoprazole Sodium (Protonix) 40 mg PO DAILY [facility] Last Admin: 11/06/19 10:00 Dose: Not Given Documented by: Polyethylene Glycol (Miralax) 17 gm PO BID [facility] Last Admin: 11/06/19 22:10 Dose: Not Given Documented by: Senna/Docusate Sodium (Senokot-S, Emily-Colace) 1 tablet PO BID [facility] Last Admin: 11/06/19 22:10 Dose: Not Given Documented by: Silver Sulfadiazine (Silvadene (Bkc)) 1 applic TOPICAL BID [facility]; Protocol Last Admin: 11/06/19 22:10 Dose: 1 applicatio Documented by: Sodium Chloride () 10 ml IV UD PRN PRN Reason: Dialysis Catheter Flush Sodium Chloride () 10 - 40 ml IV UD PRN PRN Reason: SALINE FLUSH Last Admin: 11/06/19 11:40 Dose: 10 ml Documented by: Sodium Chloride/Electrolytes (Nulytely) 4,000 ml PO X1 ONE Stop: 11/07/19 14:01 Medical Necessity - Tobacco Use Smoking Status: Former smoker - Patient used to to chew tobacco but now he has quit Assessment/Plan All Active Problems (Last Reviewed 11/04/19 @ 03:46 by Bam Campoverde MD) Hyperkalemia (Acute) Renal failure (Acute) Pneumonia (Acute) Shock liver (Acute) Anemia (Acute) 59-year-old male with anemia 1. I discussed scopes again with the patient. He was very comfortable after discussing with cardiology. Plan for EGD and colonoscopy tomorrow. Bowel prep today. 2. I explained endoscopy in detail to the patient. I explained the risks including but not limited to stroke or heart attack with anesthesia, perforation of the GI tract, bleeding, infection. I explained that any of these could necessitate further emergency surgery. The patient understands and all questions were answered sufficiently. The patient wishes to proceed with procedure. Khanh Brandon MD Pager: [facility] [address] [place] [address] [place] [address] Office:
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
[2019-11-07] MEDS: Senna/Docusate Sodium 1 Tablet PO ×2 (09:25→21:48)
[2019-11-07] MEDS: Pantoprazole Sodium 40 MG Tablet PO (09:25)
[2019-11-07] MEDS: Midodrine HCl 5 MG Tablet 10 MG PO (09:25)
[2019-11-07] MEDS: Polyethylene Glycol 3350 17 GM PACKET PO ×2 (09:26→21:49)
[2019-11-07] MEDS: 0.9% Saline Lock 10 ML Syringe IV (09:34)
--- NOTE | 2019-11-07 11:03 | PN_ITS ---
Patient Problems: Active and Suspected Problems (Last Reviewed 11/04/19 @ 03:46 by Bam Campoverde MD) Septic shock (Suspected) Hyperkalemia (Acute) Renal failure (Acute) Pneumonia (Acute) Urinary tract infection (Suspected) Shock liver (Acute) Acute respiratory failure with hypoxia and hypercarbia (Suspected) Anemia (Acute) Subjective: Patient seen and examined. He had no complaints today. Review of stems otherwise negative. He is due for colonoscopy tomorrow. Labs and vitals reviewed. Vitals/I&O's: Vital Signs Temp Pulse Resp BP Pulse Ox 97.6 F L 88 16 104/68 92 11/07/19 09:21 11/07/19 09:21 11/07/19 09:21 11/07/19 09:21 11/07/19 09:21 Oxygen Flow Rate (L/min) 2 Oxygen Delivery Method Room Air Weight: 314 lb 13.121 oz Body Mass Index (BMI) 41.5 Finger Stick Blood Glucose 177 Intake and Output for Last 24 Hours 11/05/19 11/06/19 11/07/19 23:59 23:59 23:59 Intake Total 833.75 / 833.75 353.75 / 413.75 170 / 170 Output Total 35 / 35 0 / 0 Balance 798.75 / 798.75 353.75 / 413.75 170 / 170 General: Alert, Oriented x3, Cooperative, No apparent distress, Lethargic HEENT: Atraumatic, PERRLA, EOMI, Normocephalic Oral: Dry Mucosa Neck: Supple, No JVD, Negative Carotid Bruits Lungs: Clear to auscultation, Normal air movement, No rhonchi, No wheeze, No rales Cardiovascular: Regular rate, Regular Rhythm, Normal S1, Normal S2, No murmurs Abdomen: Bowel Sounds Present, Soft, Non Tender, Non-Distended, No Hepato-splenomegaly Extremities: No clubbing, No cyanosis, No edema, Capillary Refill Less than 3 Seconds Skin: No rashes, No breakdown Musculoskeletal: No Tenderness to Palpation of Joints or Extremities, dialysis catheter in chest Lymphatic: No Cervical, Supraclavicular, or Inguinal Adenopathy Neurological: Cranial nerves II-XII grossly intact, Neuro grossly intact, Motor Exam 5/5 strength throughout Psych/Mental Status: Normal Affect, Appropriate, Alert and oriented to time, place, person, mood and affect Microbiology Past 72 Hours 11/04/19 16:21 Sputum, Induced/Lukens Gram Stain - Final 11/04/19 16:21 Sputum, Induced/Lukens Respiratory Culture - Final 11/03/19 20:51 Blood Culture (Wb) - Left Wrist Blood Culture - Preliminary No growth in 48 hours. 11/03/19 20:45 Blood Culture (Wb) - Anticubital Right Blood Culture - Preliminary No growth in 48 hours. 11/06/19 04:35 Stool Stool Occult Blood (JANET) - Final Occult Blood Positive 11/03/19 20:50 Urine Catheter - Catheter Urine Culture - Final Klebsiella pneumoniae sp pneum Laboratory Results 11/06/19 11:48: POC Glucose 206 H 11/06/19 16:41: POC Glucose 163 H 11/06/19 21:58: POC Glucose 192 H 11/07/19 05:02: WBC 8.3, RBC 2.94 L, Hgb 8.7 L, Hct 29.1 L, MCV 99.0 H, MCH 29.6, MCHC 29.9 L, RDW Std Deviation 56.2 H, RDW Coeff of Melissa 16.0 H, Plt Count 175, MPV 8.9, Immature Gran % (Auto) 1.300 H, Neut % (Auto) 73.2 H, Lymph % (Auto) 11.0 L, [place] % (Auto) 10.5 H, Eos % (Auto) 3.3, Baso % (Auto) 0.7, Absolute Neuts (auto) 6.1, Absolute Lymphs (auto) 0.91, Nucleated RBC % 0 11/07/19 05:02: Sodium 136, Potassium 4.5, Chloride 101, Carbon Dioxide 28.0, Anion Gap 7, BUN 50 H, Creatinine 6.19 H, Estim Creat Clear Calc 14.16, Est GFR (MDRD) Af Amer 12 L, Est GFR (MDRD) Non-Af 10 L, BUN/Creatinine Ratio 8.1 L, Glucose 130 H, Calcium 7.7 L, Total Bilirubin 0.60, AST 72 H, ALT 158 H, Alkaline Phosphatase 176 H, Total Protein 7.6, Albumin 2.6 L, Globulin 5.0 H, Albumin/Globulin Ratio 0.5 L 11/07/19 06:44: POC Glucose 121 H Current Medications Acetaminophen (Tylenol) 650 mg PO Q6H PRN PRN PRN Reason: Pain Score 1-10/Temp > 100.7 F Apixaban (Eliquis) 5 mg PO BID [facility] Last Admin: 11/05/19 21:51 Dose: 5 mg Documented by: Atorvastatin Calcium (Lipitor) 40 mg PO QHS [facility] Last Admin: 11/06/19 22:09 Dose: 40 mg Documented by: Calamine/Phenol (Calmoseptine Ointment) 1 applic TOPICAL BID [facility]; Protocol Last Admin: 11/06/19 22:09 Dose: 1 applicatio Documented by: Glucagon () 1 mg IM .X1 PRN PRN Reason: Hypoglycemia Heparin Sodium (Porcine) () 2,500 units IV UD PRN PRN Reason: Dialysis Cath Heparin Flush Sodium Chloride () 250 mls @ 15 mls/hr IV .[id number] PRN PRN Reason: Saline Flush Last Infusion: 11/06/19 12:31 Dose: 0 mls/hr Documented by: Dextrose (Dextrose 10%-Water) 250 mls @ 999 mls/hr IV X1 PRN; Protocol PRN Reason: HYPOGLYCEMIA Ceftriaxone Sodium 2 gm/ (Sodium Chloride) 50 mls @ 100 mls/hr IV Q24 [facility] Last Infusion: 11/07/19 10:21 Dose: Infused Documented by: Insulin Human Lispro (Humalog Kwikpen (Bkc)) 0 unit SC ACHS [facility]; Protocol Last Admin: 11/07/19 06:46 Dose: Not Given Documented by: Levothyroxine Sodium (Synthroid) 25 mcg PO DAILY@0600 [facility] Last Admin: 11/07/19 05:29 Dose: 25 mcg Documented by: Midodrine (Proamatine) 10 mg PO DAILY [facility] Last Admin: 11/07/19 09:25 Dose: 10 mg Documented by: Pantoprazole Sodium (Protonix) 40 mg PO DAILY [facility] Last Admin: 11/07/19 09:25 Dose: 40 mg Documented by: Polyethylene Glycol (Miralax) 17 gm PO BID [facility] Last Admin: 11/07/19 09:26 Dose: 17 gm Documented by: Senna/Docusate Sodium (Senokot-S, Emily-Colace) 1 tablet PO BID [facility] Last Admin: 11/07/19 09:25 Dose: 1 tablet Documented by: Silver Sulfadiazine (Silvadene (Bkc)) 1 applic TOPICAL BID [facility]; Protocol Last Admin: 11/06/19 22:10 Dose: 1 applicatio Documented by: Sodium Chloride () 10 ml IV UD PRN PRN Reason: Dialysis Catheter Flush Last Admin: 11/07/19 09:34 Dose: 10 ml Documented by: Sodium Chloride () 10 - 40 ml IV UD PRN PRN Reason: SALINE FLUSH Last Admin: 11/06/19 11:40 Dose: 10 ml Documented by: Sodium Chloride/Electrolytes (Nulytely) 4,000 ml PO X1 ONE Stop: 11/07/19 14:01 STROKE Vital Signs/Narrative: Vital Signs Temp Pulse Resp BP Pulse Ox 11/07/19 09:21 97.6 F L 88 16 104/68 92 Medical Necessity - Tobacco Use Smoking Status: Former smoker - Patient used to to chew tobacco but now he has quit Assessment/Plan All Active Problems (Last Reviewed 11/04/19 @ 03:46 by Bam Campoverde MD) Hyperkalemia (Acute) Renal failure (Acute) Pneumonia (Acute) Shock liver (Acute) Anemia (Acute) 1. Acute metabolic encephalopathy due to septic shock * resolved. Was intubated on admission to protect his airway; he was extubated yesterday. * on IV zosyn and renally dosed vancomycin * urine cultured Klebsiella. * urine for strep and legionella were negative * blood cultures showed no growth after 48 hours * 2. Septic shock likely due to UTI: * as under 1. * on IV zosyn and vancomycin-renally dosed. * BP this morning is now 104/59. stable * 3. Hyperkalemia in a patient with ESRD * resolved. * nephrology on board * 4. Elevated liver enzymes * resolving. * RUQ USG showed diffuse fatty liver and ascites. * will continue monitoring for resolution. 5. Anemia of chronic disease * Hemoglobin was 9.7 on admission and is now down to 8.7 today. Fell as low as 8 * stool for occult blood is positive * iron panel showed iron level of 30, with low TIBC and ferritin of 1857. * iron panel is indicative of anemia of chronic disease * General surgery on board. For colonoscopy tomorrow. Cardiology has evaluated patient. General surgery and anesthesia request and is cleared patient for colonoscopy with low risk. * 6. Hypothyroidism: On Synthroid. 7. HFrEF: * not in exacerbation. * 2D echo: EF of 55%, with mildly dilated LV and segmental dysfunction and hypokinetic apex. * Carvedilol on hold on account of hypotension. on midodrine. Patient on eliquis, probably from Afib, though reason is not clear. * has pacemaker in place, says he is due to have an AICD placed. 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 * 8. History of CAD s/p CABG: * on statin and carvedilol. * Carvedilol on hold o/a of hypotension. * BP has remained stable, with some episodes of hypotension. * Will monitor 9. Hot water burgos of right foot * follows up at [facility]. * wound care on board * DVT prophylaxis: will hold eliquis o.a of positive occult blood. Code status: full code. Code Visit Inpatient E&M: 80322 Subs Hosp L2
[2019-11-07] MEDS: Menthol/Lanolin/Calamine/Znox 113 GM Tube 1 APPLIC TOPICAL ×2 (11:43→21:48)
[2019-11-07 11:45] LABS: Bedside Glucose 116 mg/dL (70-110)
--- NOTE | 2019-11-07 12:46 | PN_ITS ---
Patient Problems: Active and Suspected Problems (Last Reviewed 11/04/19 @ 03:46 by Bam Campoverde MD) Septic shock (Suspected) Hyperkalemia (Acute) Renal failure (Acute) Pneumonia (Acute) Urinary tract infection (Suspected) Shock liver (Acute) Acute respiratory failure with hypoxia and hypercarbia (Suspected) Anemia (Acute) Subjective: The patient has no complaints denies chest pain shortness of breath tolerating dialysis well - Physical Exam Vitals/I&O's: Vital Signs Temp Pulse Resp BP Pulse Ox 97.6 F L 88 16 104/68 92 11/07/19 09:21 11/07/19 09:21 11/07/19 09:21 11/07/19 09:21 11/07/19 09:21 Oxygen Flow Rate (L/min) 2 Oxygen Delivery Method Room Air Weight: 142.8 kg Body Mass Index (BMI) 41.5 Finger Stick Blood Glucose 177 Intake and Output for Last 24 Hours 11/05/19 11/06/19 11/07/19 23:59 23:59 23:59 Intake Total 833.75 / 833.75 353.75 / 413.75 530 / 530 Output Total 35 / 35 0 / 0 Balance 798.75 / 798.75 353.75 / 413.75 530 / 530 General: Alert, Oriented x3, Cooperative HEENT: Atraumatic, PERRLA, EOMI, Normocephalic Neck: Supple, No JVD, Negative Carotid Bruits Lungs: Clear to auscultation, Normal air movement Cardiovascular: Regular rate, No murmurs Abdomen: Bowel Sounds Present, Soft, Non Tender Extremities: No edema, Capillary Refill Less than 3 Seconds Skin: No rashes, No breakdown Musculoskeletal: No Tenderness to Palpation of Joints or Extremities Neurological: Cranial nerves II-XII grossly intact Psych/Mental Status: Normal Affect, Appropriate Comment: Obese abdomen right IJ tunneled dialysis catheter no signs of infection Microbiology Past 72 Hours 11/04/19 16:21 Sputum, Induced/Lukens Gram Stain - Final 11/04/19 16:21 Sputum, Induced/Lukens Respiratory Culture - Final 11/03/19 20:51 Blood Culture (Wb) - Left Wrist Blood Culture - Preliminary No growth in 48 hours. 11/03/19 20:45 Blood Culture (Wb) - Anticubital Right Blood Culture - Preliminary No growth in 48 hours. 11/06/19 04:35 Stool Stool Occult Blood (JANET) - Final Occult Blood Positive 11/03/19 20:50 Urine Catheter - Catheter Urine Culture - Final Klebsiella pneumoniae sp pneum Laboratory Results 11/06/19 16:41: POC Glucose 163 H 11/06/19 21:58: POC Glucose 192 H 11/07/19 05:02: WBC 8.3, RBC 2.94 L, Hgb 8.7 L, Hct 29.1 L, MCV 99.0 H, MCH 29.6, MCHC 29.9 L, RDW Std Deviation 56.2 H, RDW Coeff of Melissa 16.0 H, Plt Count 175, MPV 8.9, Immature Gran % (Auto) 1.300 H, Neut % (Auto) 73.2 H, Lymph % (Auto) 11.0 L, [place] % (Auto) 10.5 H, Eos % (Auto) 3.3, Baso % (Auto) 0.7, Absolute Neuts (auto) 6.1, Absolute Lymphs (auto) 0.91, Nucleated RBC % 0 11/07/19 05:02: Sodium 136, Potassium 4.5, Chloride 101, Carbon Dioxide 28.0, Anion Gap 7, BUN 50 H, Creatinine 6.19 H, Estim Creat Clear Calc 14.16, Est GFR (MDRD) Af Amer 12 L, Est GFR (MDRD) Non-Af 10 L, BUN/Creatinine Ratio 8.1 L, Glucose 130 H, Calcium 7.7 L, Total Bilirubin 0.60, AST 72 H, ALT 158 H, Alkaline Phosphatase 176 H, Total Protein 7.6, Albumin 2.6 L, Globulin 5.0 H, Albumin/Globulin Ratio 0.5 L 11/07/19 06:44: POC Glucose 121 H 11/07/19 11:39: POC Glucose 116 H Current Medications Acetaminophen (Tylenol) 650 mg PO Q6H PRN PRN PRN Reason: Pain Score 1-10/Temp > 100.7 F Apixaban (Eliquis) 5 mg PO BID [facility] Last Admin: 11/05/19 21:51 Dose: 5 mg Documented by: Atorvastatin Calcium (Lipitor) 40 mg PO QHS [facility] Last Admin: 11/06/19 22:09 Dose: 40 mg Documented by: Calamine/Phenol (Calmoseptine Ointment) 1 applic TOPICAL BID [facility], [facility]; Protocol Last Admin: 11/07/19 11:43 Dose: 1 applicatio Documented by: Glucagon () 1 mg IM .X1 PRN PRN Reason: Hypoglycemia Heparin Sodium (Porcine) () 2,500 units IV UD PRN PRN Reason: Dialysis Cath Heparin Flush Sodium Chloride () 250 mls @ 15 mls/hr IV .[id number] PRN PRN Reason: Saline Flush Last Infusion: 11/06/19 12:31 Dose: 0 mls/hr Documented by: Dextrose (Dextrose 10%-Water) 250 mls @ 999 mls/hr IV X1 PRN; Protocol PRN Reason: HYPOGLYCEMIA Ceftriaxone Sodium 2 gm/ (Sodium Chloride) 50 mls @ 100 mls/hr IV Q24 PAKO Last Infusion: 11/07/19 10:21 Dose: Infused Documented by: Insulin Human Lispro (Humalog Kwikpen (Bkc)) 0 unit SC ACHS [facility], [facility]; Protocol Last Admin: 11/07/19 11:43 Dose: Not Given Documented by: Levothyroxine Sodium (Synthroid) 25 mcg PO DAILY@0600 [facility] Last Admin: 11/07/19 05:29 Dose: 25 mcg Documented by: Midodrine (Proamatine) 10 mg PO DAILY [facility] Last Admin: 11/07/19 09:25 Dose: 10 mg Documented by: Pantoprazole Sodium (Protonix) 40 mg PO DAILY [facility] Last Admin: 11/07/19 09:25 Dose: 40 mg Documented by: Polyethylene Glycol (Miralax) 17 gm PO BID [facility] Last Admin: 11/07/19 09:26 Dose: 17 gm Documented by: Senna/Docusate Sodium (Senokot-S, Emily-Colace) 1 tablet PO BID [facility] Last Admin: 11/07/19 09:25 Dose: 1 tablet Documented by: Silver Sulfadiazine (Silvadene (Bkc)) 1 applic TOPICAL BID [facility], [facility]; Protocol Last Admin: 11/06/19 22:10 Dose: 1 applicatio Documented by: Sodium Chloride () 10 ml IV UD PRN PRN Reason: Dialysis Catheter Flush Last Admin: 11/07/19 09:34 Dose: 10 ml Documented by: Sodium Chloride () 10 - 40 ml IV UD PRN PRN Reason: SALINE FLUSH Last Admin: 11/06/19 11:40 Dose: 10 ml Documented by: Sodium Chloride/Electrolytes (Nulytely) 4,000 ml PO X1 ONE Stop: 11/07/19 14:01 Medical Necessity - Tobacco Use Smoking Status: Former smoker - Patient used to to chew tobacco but now he has quit Assessment/Plan All Active Problems (Last Reviewed 11/04/19 @ 03:46 by Bam Campoverde MD) Hyperkalemia (Acute) Renal failure (Acute) Pneumonia (Acute) Shock liver (Acute) Anemia (Acute) ESRD Hyperkalemia severe resolved Klebsiella UTI Chronic hypotension Respiratory failure s/p extubation Heart failure Seen on dialysis tolerating well Wednesday dialysis per his schedule. antibiotics as per primary. negative at 48 hours blood cultures Use WALTER with next dialysis continue to monitor hemoglobin and transfuse as needed if hemoglobin less than 7 Monitor phosphorus and calcium
--- NOTE | 2019-11-07 14:48 | DIALYSIS ---
HD x4.5 hours completed at 1410, stable treatment, tolerated well, UF 3200mL, retacrit 10,000 units given during treatment, accessed via right chest tunneled dialysis catheter, report to Iván AMATO
[2019-11-07] MEDS: Electrolyte Solution/Peg's 4000 ML PO (14:58)
[2019-11-07] MEDS: Silver Sulfadiazine 1% Crm 50 gm Bottle 1 APPLIC TOPICAL ×2 (14:59→21:49)
[2019-11-07] MEDS: Epoetin Alfa epbx 10,000 UNITS/ML 10000 UNIT IV (14:59)
--- NOTE | 2019-11-07 16:12 | CASEMGMT ---
This LM [facility] received call from Tricia Cotton, pt's Rosalinda/carlyle HSIEH, and she states concerns with pt going home at discharge, even with [facility]. She states that pt should go to [facility] for rehab prior to going home. She states she spoke with pt via phone yesterday. CM/ROXANNA to follow PT/OT and to f/u with pt/family on 11/08/19 regarding discharge plan. Contact info for Rosalinda Andrews/carlyle [facility], is [phone]. SStaleshia AMATO CM
[2019-11-07 16:36] LABS: Hepatitis B Core AB IgM Negative (Negative)
[2019-11-07] MEDS: Atorvastatin Calcium 40 MG Tablet PO (21:48)
[2019-11-08] VITALS (19 sets, daily range): BP systolic 74–110; BP diastolic 44–71; PULSE 84–98; RESP 14–18; TEMP 36.1–36.9; O2SAT 84–100; BMI 41.5; BMI 41.1
[2019-11-08] MEDS: Levothyroxine 25 MCG TABLET PO (05:18)
[2019-11-08 06:15] LABS: Absolute Lymphocyte Count 0.78 X10^3/uL (0.83-4.51); Absolute Neutrophil Count 5.1 X10^3/uL (2.0-7.7); Basophil# 0.05 X10^3/uL; Basophil% 0.7 % (0-1); Eosinophil# 0.23 X10^3/uL; Eosinophils% 3.3 % (0-5); Hematocrit 29.9 % (40-54); Hemoglobin 9.2 g/dL (13.0-16.5); Lymphocyte # 0.78 X10^3/ul (4.0); Lymphocyte % 11.1 % (19-41); Mean Corp Hgb Conc 30.8 g/dL (32-36); Mean Corpuscular Hgb 29.8 pg (27.0-32.0); Mean Corpuscular Volume 96.8 fL (80-94); Mean Platelet Vol. 8.3 fl (6.2-12.0); Monocyte# 0.71 X10^3/uL; Monocyte% 10.1 % (0-10); NRBC Flagged by Analyzer 0 % (0-5); Neutrophil # 5.14 X10^3/uL (2.7-7.7); Platelet Count 155 K/mm3 (150-450); RBC Distribution Width CV 15.9 % (11.6-14.6); RBC Distribution Width SD 54.6 fl (35.1-43.9); Red Blood Count 3.09 M/mm3 (4.6-6.2)
--- NOTE | 2019-11-08 06:19 | NURSING ---
Report called to geriatric care manager at this time. Pt will arrive by 0630 for EGD and colonoscopy.
[2019-11-08 06:41] LABS: Anion Gap 7 (5-15); BUN 25 mg/dL (7-18); BUN/Creat Ratio 5.9 RATIO (10-20); Calcium,Total 7.9 mg/dL (8.5-10.1); Chloride 100 mmol/L (98-107); Creatinine, Serum 4.26 mg/dL (0.70-1.30); EST Glomerular Filtration Rate 15 mL/min (>60); Est Glom Filt Rate - Afr Amer 18 mL/min (>60); Estimated Creatinine Clearance 20.58 ml/min; Glucose 111 mg/dL (74-106); Potassium 3.8 mmol/L (3.5-5.1); Sodium Level 136 mmol/L (136-145)
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
--- NOTE | 2019-11-08 07:30 | COLBX_PTH ---
PATIENT: JAME PERKINS LOC: [facility] U#:[id number] AGE/SX: 59/M ROOM: [facility] RE11/03/[address]: Dr. Meg Mcmanus MD : 1960 BED: 1 DIS: 11/09/2019 SPEC #: [id number] RECD: 11/08/19 08:28 STATUS: MARINA PHILIP #: [id number] PATRICIA: 11/08/19 07:[address]: Khanh Brandon DEPT: SURGICAL PATHOLOGY RECD BY: Kimberly Patrick ENTERED: 11/08/19 12:05 SP TYPE: COLON BX OTHR DR: MD Dr. Flo Rowland MD Dr. Cyril Ofori, MD Dr. Joseph Agyepong, MD Dr. Nana Yaa Koram, MD Tissues: Duodenum, NOS Procedures: Surgery Specimen Level IV HEADER OPERATION: Colonoscopy, EGD ([facility]) PRE-OP DIAGNOSIS: Anemia TISSUE SUBMITTED: Duodenal biopsy MICROSCOPIC DIAGNOSIS Duodenal biopsy: Fragments of duodenal mucosa, no pathologic diagnosis. FRIDA:harika 11/09/19 MICROSCOPIC DESCRIPTION Slides are reviewed. GROSS DESCRIPTION Received in fixative is one container labeled with the patient's name and designated duodenal biopsy. The specimen consists of two irregular fragments of light lizarraga soft tissue that in aggregate measure 0.5 x 0.3 x 0.1 cm. The specimen is totally submitted in one cassette. / FRIDA:harika 11/08/19 TC:4 CPT: 63876
--- NOTE | 2019-11-08 08:07 | PN_ITS ---
Progress Note EGD and colonoscopy performed. The patient has a biliary stent in the common bile duct. Unsure as to how long this is been in there. The patient also has some irritation to the duodenum proximal to this which was biopsied. He did have some slight erythema in the stomach. No masses or active bleeding. Colonoscopy was normal with no stigmata of bleeding or polyps or masses. Patient does have severe hemorrhoids. Patient may resume Eliquis tomorrow. I have resumed his diet. Repeat colonoscopy in 10 years. Khanh Brandon MD Pager: [facility] [address] [place] [address], [address] [place] [address] Office: [facility] Vital Signs/Narrative: Vital Signs Temp Pulse Resp BP Pulse Ox 11/08/19 06:37 97.0 F L 94 18 91/71 94 11/08/19 06:30 97.0 F L 94 18 91/71 84
--- NOTE | 2019-11-08 08:11 | OP.EGD_ITS ---
Patient Name: Richmond Cordero Procedure Date: 11/08/2019 7:26 AM Date of : 1960 Age: 59 Procedure: Upper GI endoscopy Indications: Iron deficiency anemia Providers: Khanh Brandon MD Referring MD: Bam Campoverde Medicines: Monitored Anesthesia Care Patient Profile: This is a 59 year old male. Refer to note in patient chart for documentation of history and physical. Complications: No immediate complications. Estimated blood loss: Minimal. Procedure: Pre-Anesthesia Assessment: - Prior to the procedure, a History and Physical was performed, and patient medications and allergies were reviewed. The patient's tolerance of previous anesthesia was also reviewed. The risks and benefits of the procedure and the sedation options and risks were discussed with the patient. All questions were answered, and informed consent was obtained. Prior Anticoagulants: The patient has taken Eliquis (apixaban), last dose was 2 days prior to procedure. After reviewing the risks and benefits, the patient was deemed in satisfactory condition to undergo the procedure. After obtaining informed consent, the endoscope was passed under direct vision. Throughout the procedure, the patient's blood pressure, pulse, and oxygen saturations were monitored continuously. The gastroscope was introduced through the mouth, and advanced to the second part of duodenum. The upper GI endoscopy was accomplished without difficulty. The patient tolerated the procedure well. Scope In: 7:41:21 AM Scope Out: 7:44:31 AM Total Procedure Duration Time 0 hours 3 minutes 10 seconds Findings: A previously placed biliary stent was seen at the major papilla. Diffuse mildly erythematous mucosa without active bleeding and with no stigmata of bleeding was found in the second portion of the duodenum. This was biopsied with a cold forceps for histology. [Site] was. The examined esophagus was normal. Impression: - Biliary stent in the duodenum. - Erythematous duodenopathy. Biopsied. - Normal stomach. - Normal esophagus. Recommendation: - Await pathology results. - Continue present medications. - Resume Eliquis (apixaban) at prior dose tomorrow. Procedure Code(s): --- Professional --- 41863, Esophagogastroduodenoscopy, flexible, transoral; with biopsy, single or multiple Diagnosis Code(s): --- Professional --- K31.89, Other diseases of stomach and duodenum D50.9, Iron deficiency anemia, unspecified CPT copyright 2017 [employer]. All rights reserved. The codes documented in this report are preliminary and upon hcc coders review may be revised to meet current compliance requirements. Khanh Brandon MD 11/08/2019 8:10:52 AM This report has been signed electronically. Number of Addenda: 0 Note Initiated On: 11/08/2019 7:26 AM
--- NOTE | 2019-11-08 08:13 | OP.COLON_ITS ---
Patient Name: Richmond Cordero Procedure Date: 11/08/2019 7:47 AM Date of : 1960 Age: 59 Procedure: Colonoscopy Indications: Iron deficiency anemia Providers: Khanh Brandon MD Referring MD: Bam Campoverde Medicines: Monitored Anesthesia Care Patient Profile: This is a 59 year old male. Refer to note in patient chart for documentation of history and physical. Last Colonoscopy: none. The patient's first colonoscopy is today. Complications: No immediate complications. Estimated blood loss: Minimal. Procedure: Pre-Anesthesia Assessment: - Prior to the procedure, a History and Physical was performed, and patient medications and allergies were reviewed. The patient's tolerance of previous anesthesia was also reviewed. The risks and benefits of the procedure and the sedation options and risks were discussed with the patient. All questions were answered, and informed consent was obtained. Prior Anticoagulants: The patient has taken Eliquis (apixaban), last dose was 2 days prior to procedure. After reviewing the risks and benefits, the patient was deemed in satisfactory condition to undergo the procedure. After I obtained informed consent, the scope was passed under direct vision. Throughout the procedure, the patient's blood pressure, pulse, and oxygen saturations were monitored continuously. The Colonoscope was introduced through the anus and advanced to the cecum, identified by appendiceal orifice and ileocecal valve. The colonoscopy was performed without difficulty. The patient tolerated the procedure well. The quality of the bowel preparation was good. Scope In: 7:52:36 AM Scope Withdrawal Time 0 hours 4 minutes 39 seconds Scope Out: 8:03:29 AM Total Procedure Duration Time 0 hours 10 minutes 53 seconds Findings: The entire examined colon appeared normal on direct and retroflexion views. External and internal hemorrhoids were found during digital exam. The hemorrhoids were Grade III (internal hemorrhoids that prolapse but require manual reduction). Impression: - The entire examined colon is normal on direct and retroflexion views. - External and internal hemorrhoids. - No specimens collected. Recommendation: - Repeat colonoscopy in 10 years for screening purposes. - Continue present medications. Procedure Code(s): --- Professional --- 59262, Colonoscopy, flexible; diagnostic, including collection of specimen(s) by brushing or washing, when performed (separate procedure) Diagnosis Code(s): --- Professional --- K64.2, Third degree hemorrhoids D50.9, Iron deficiency anemia, unspecified CPT copyright 2017 [employer]. All rights reserved. The codes documented in this report are preliminary and upon electronics teacher review may be revised to meet current compliance requirements. Khanh Brandon MD 11/08/2019 8:12:27 AM This report has been signed electronically. Number of Addenda: 0 Note Initiated On: 11/08/2019 7:47 AM
[2019-11-08 08:21] LABS: Hemoglobin A1c 9.1 % (4.2-6.3)
[2019-11-08] MEDS: Pantoprazole Sodium 40 MG Tablet PO (10:37)
[2019-11-08] MEDS: Menthol/Lanolin/Calamine/Znox 113 GM Tube 1 APPLIC TOPICAL ×2 (10:37→22:32)
[2019-11-08] MEDS: Midodrine HCl 5 MG Tablet 10 MG PO (10:37)
[2019-11-08 10:41] LABS: Bedside Glucose 112 mg/dL (70-110)
[2019-11-08 10:41] LABS: Bedside Glucose 117 mg/dL (70-110)
[2019-11-08 10:41] LABS: Bedside Glucose 116 mg/dL (70-110)
--- NOTE | 2019-11-08 11:45 | CASEMGMT ---
ROXANNA spoke with patient this am and asked him about discharge. SW told him he is pretty weak and not sure he is safe to return home. He said he is fine and is going home. SW asked if it is okay for SW to contact his son and he said that is fine. Therapy said patient is refusing to get up with them. He insists he will be fine to go home at discharge. SW called patient's son, John and left him a message requesting a return call regarding d/c plan. Karen THOMPSON MSW
--- NOTE | 2019-11-08 12:36 | PCM.PN.HOSP ---
Patient Problems: Active and Suspected Problems (This Medical Record has been edited. Action required.) Septic shock (Suspected) Hyperkalemia (Acute) Renal failure (Acute) Pneumonia (Acute) Urinary tract infection (Suspected) Shock liver (Acute) Acute respiratory failure with hypoxia and hypercarbia (Suspected) Anemia (Acute) Subjective: Patient seen and examined. He has no complaints. He had colonoscopy and EGD this morning. Review of systems otherwise negative. Labs and vitals reviewed. BP has been running in the 80s systolic. Review of systems otherwise negative. Vitals/I&O's: Vital Signs Temp Pulse Resp BP Pulse Ox 97.8 F 95 16 110/46 L 92 11/08/19 11:38 11/08/19 11:38 11/08/19 11:38 11/08/19 11:38 11/08/19 11:38 Oxygen Flow Rate (L/min) 3 Oxygen Delivery Method Room Air Weight: 311 lb 8.211 oz Body Mass Index (BMI) 41.1 Finger Stick Blood Glucose 177 Intake and Output for Last 24 Hours 11/06/19 11/07/19 11/08/19 23:59 23:59 23:59 Intake Total 353.75 / 413.75 530 / 770 290 / 290 Output Total 0 / 0 3200 / 3200 0 / 0 Balance 353.75 / 413.75 -2670 / -2430 290 / 290 General: Alert, Oriented x3, Cooperative, No apparent distress HEENT: Atraumatic, PERRLA, EOMI, Normocephalic Oral: Dry Mucosa Neck: Supple, No JVD, Negative Carotid Bruits Lungs: Clear to auscultation, Normal air movement, No rhonchi, No wheeze, No rales Cardiovascular: Regular rate, Regular Rhythm, Normal S1, Normal S2, No murmurs Abdomen: Bowel Sounds Present, Soft, Non Tender, Non-Distended, No Hepato-splenomegaly Extremities: No clubbing, No cyanosis, No edema, Capillary Refill Less than 3 Seconds Skin: No rashes, No breakdown Musculoskeletal: No Tenderness to Palpation of Joints or Extremities, dialysis catheter in chest Lymphatic: No Cervical, Supraclavicular, or Inguinal Adenopathy Neurological: Cranial nerves II-XII grossly intact, Neuro grossly intact, Motor Exam 5/5 strength throughout Psych/Mental Status: Normal Affect, Appropriate, Alert and oriented to time, place, person, mood and affect Microbiology Past 72 Hours 11/04/19 16:21 Sputum, Induced/Lukens Gram Stain - Final 11/04/19 16:21 Sputum, Induced/Lukens Respiratory Culture - Final 11/03/19 20:51 Blood Culture (Wb) - Left Wrist Blood Culture - Preliminary No growth in 48 hours. 11/03/19 20:45 Blood Culture (Wb) - Anticubital Right Blood Culture - Preliminary No growth in 48 hours. 11/06/19 04:35 Stool Stool Occult Blood (JANET) - Final Occult Blood Positive 11/03/19 20:50 Urine Catheter - Catheter Urine Culture - Final Klebsiella pneumoniae sp pneum Laboratory Results 11/04/19 00:55: Hep B Core Total Ab Negative, Hep B Core IgM Ab Negative 11/07/19 17:23: POC Glucose 112 H 11/07/19 21:46: POC Glucose 116 H 11/08/19 05:51: POC Glucose 117 H 11/08/19 06:08: WBC 7.0, RBC 3.09 L, Hgb 9.2 L, Hct 29.9 L, MCV 96.8 H, MCH 29.8, MCHC 30.8 L, RDW Std Deviation 54.6 H, RDW Coeff of Melissa 15.9 H, Plt Count 155, MPV 8.3, Immature Gran % (Auto) 1.800 H, Neut % (Auto) 73.0 H, Lymph % (Auto) 11.1 L, Cloud % (Auto) 10.1 H, Eos % (Auto) 3.3, Baso % (Auto) 0.7, Absolute Neuts (auto) 5.1, Absolute Lymphs (auto) 0.78 L, Nucleated RBC % 0 11/08/19 06:08: Sodium 136, Potassium 3.8, Chloride 100, Carbon Dioxide 29.0, Anion Gap 7, BUN 25 H, Creatinine 4.26 H, Estim Creat Clear Calc 20.58, Est GFR (MDRD) Af Amer 18 L, Est GFR (MDRD) Non-Af 15 L, BUN/Creatinine Ratio 5.9 L, Glucose 111 H, Calcium 7.9 L 11/08/19 06:08: Hemoglobin A1c 9.1 H Current Medications Acetaminophen (Tylenol) 650 mg PO Q6H PRN PRN PRN Reason: Pain Score 1-10/Temp > 100.7 F Apixaban (Eliquis) 5 mg PO BID [facility] TO [facility] Last Admin: 11/05/19 21:51 Dose: 5 mg Documented by: Atorvastatin Calcium (Lipitor) 40 mg PO QHS [facility] Last Admin: 11/07/19 21:48 Dose: 40 mg Documented by: Calamine/Phenol (Calmoseptine Ointment) 1 applic TOPICAL BID [facility]; Protocol Last Admin: 11/08/19 10:37 Dose: 1 applicatio Documented by: Glucagon () 1 mg IM .X1 PRN PRN Reason: Hypoglycemia Heparin Sodium (Porcine) () 2,500 units IV UD PRN PRN Reason: Dialysis Cath Heparin Flush Sodium Chloride () 250 mls @ 15 mls/hr IV .[id number] PRN PRN Reason: Saline Flush Last Infusion: 11/06/19 12:31 Dose: 0 mls/hr Documented by: Dextrose (Dextrose 10%-Water) 250 mls @ 999 mls/hr IV X1 PRN; Protocol PRN Reason: HYPOGLYCEMIA Ceftriaxone Sodium 2 gm/ (Sodium Chloride) 50 mls @ 100 mls/hr IV Q24 [facility] Last Infusion: 11/08/19 11:19 Dose: Infused Documented by: Insulin Human Lispro (Humalog Kwikpen (Bkc)) 0 unit SC ACHS [facility]; Protocol Last Admin: 11/08/19 11:38 Dose: Not Given Documented by: Levothyroxine Sodium (Synthroid) 25 mcg PO DAILY@0600 [facility] Last Admin: 11/08/19 05:18 Dose: 25 mcg Documented by: Midodrine (Proamatine) 10 mg PO DAILY [facility] Last Admin: 11/08/19 10:37 Dose: 10 mg Documented by: Pantoprazole Sodium (Protonix) 40 mg PO DAILY [facility] Last Admin: 11/08/19 10:37 Dose: 40 mg Documented by: Polyethylene Glycol (Miralax) 17 gm PO BID [facility] Last Admin: 11/08/19 10:37 Dose: Not Given Documented by: Senna/Docusate Sodium (Senokot-S, Emily-Colace) 1 tablet PO BID [facility] Last Admin: 11/08/19 10:38 Dose: Not Given Documented by: Silver Sulfadiazine (Silvadene (Bkc)) 1 applic TOPICAL BID [facility]; Protocol Last Admin: 11/07/19 21:49 Dose: 1 applicatio Documented by: Sodium Chloride () 10 ml IV UD PRN PRN Reason: Dialysis Catheter Flush Last Admin: 11/07/19 09:34 Dose: 10 ml Documented by: Sodium Chloride () 10 - 40 ml IV UD PRN PRN Reason: SALINE FLUSH Last Admin: 11/06/19 11:40 Dose: 10 ml Documented by: STROKE Vital Signs/Narrative: Vital Signs Temp Pulse Resp BP Pulse Ox 11/08/19 11:38 97.8 F 95 16 110/46 L 92 11/08/19 10:48 97.5 F L 92 16 82/47 L 92 11/08/19 09:12 97.8 F 89 14 90/53 L 97 Medical Necessity - Tobacco Use Smoking Status: Former smoker - Patient used to to chew tobacco but now he has quit Assessment/Plan All Active Problems (This Medical Record has been edited. Action required.) Ulcer of left lower extremity with fat layer exposed (Acute) Ulcer of right lower extremity with fat layer exposed (Acute) Decubitus ulcer of coccyx, stage 2 (Acute) Hyperkalemia (Acute) Renal failure (Acute) Pneumonia (Acute) Shock liver (Acute) Anemia (Acute) Chronic ulcer of left foot with fat layer exposed (Resolved) Ulcer of left foot (Resolved) Leg wound, left (Acute) Healed ulcer of left foot on examination (Acute) Diabetic foot infection (Resolved) 1. Acute metabolic encephalopathy due to septic shock resolved. Was intubated on admission to protect his airway; successfuly extubated urine for strep and legionella were negative blood cultures showed no growth after 48 hours on IV ceftriaxone 2. Septic shock likely due to UTI: as under 1. on IV ceftriaxone. Urine cultured Klebsiella BP has been running low, in the 90sa nd 80s systolic. WIll hydrate very gently as needed. 3. Hyperkalemia in a patient with ESRD resolved. nephrology on board 4. Elevated liver enzymes resolving. RUQ USG showed diffuse fatty liver and ascites. 5. Anemia of chronic disease Hemoglobin was 9.7 on admission and is now down to 8.7 today. Fell as low as 8 stool for occult blood is positive iron panel showed iron level of 30, with low TIBC and ferritin of 1857. iron panel is indicative of anemia of chronic disease Had EGD and colonoscopy today: colon was normal, and EGD showed diffuse mildly erythematous mucosa in duodenum without active bleeding and no stigmata of bleeding in second portion of duodenum; erythematous mucosa was biopsied. to resume eliquis tomorrow 6. Hypothyroidism: On Synthroid. 7. HFrEF: 2D echo: EF of 55%, with mildly dilated LV and segmental dysfunction and hypokinetic apex. Carvedilol on hold on account of hypotension. on midodrine. Patient on eliquis has pacemaker in place, says he is due to have an AICD placed. To follow up with his front end developer designer on outpatient basis. 8. History of CAD s/p CABG: on statin and carvedilol. Carvedilol on hold o/a of hypotension. Will monitor 9. Hot water burgos of right foot follows up at [facility]. wound care on board DVT prophylaxis: SCDs. resume eliquis tomorrow Code status: full code. Disposition: for dc home tomorrow. Code Visit Inpatient E&M: 97898 Subs Hosp L2
--- NOTE | 2019-11-08 13:32 | PN.RENAL_ITS ---
Patient Problems: Active and Suspected Problems (This Medical Record has been edited. Action required.) Septic shock (Suspected) Hyperkalemia (Acute) Renal failure (Acute) Pneumonia (Acute) Urinary tract infection (Suspected) Shock liver (Acute) Acute respiratory failure with hypoxia and hypercarbia (Suspected) Anemia (Acute) Subjective: no new events - Physical Exam Vitals/I&O's: Vital Signs Temp Pulse Resp BP Pulse Ox 97.8 F 95 16 110/46 L 92 11/08/19 11:38 11/08/19 11:38 11/08/19 11:38 11/08/19 11:38 11/08/19 11:38 Oxygen Flow Rate (L/min) 3 Oxygen Delivery Method Room Air Weight: 141.3 kg Body Mass Index (BMI) 41.1 Finger Stick Blood Glucose 177 Intake and Output for Last 24 Hours 11/06/19 11/07/19 11/08/19 23:59 23:59 23:59 Intake Total 353.75 / 413.75 530 / 770 290 / 290 Output Total 0 / 0 3200 / 3200 0 / 0 Balance 353.75 / 413.75 -2670 / -2430 290 / 290 General: Alert, Oriented x3, Cooperative HEENT: Atraumatic, PERRLA, EOMI, Normocephalic Neck: Supple, No JVD, Negative Carotid Bruits Lungs: Clear to auscultation, Normal air movement Cardiovascular: Regular rate, No murmurs Abdomen: Bowel Sounds Present, Soft, Non Tender Extremities: No edema, Capillary Refill Less than 3 Seconds Skin: No rashes, No breakdown Musculoskeletal: No Tenderness to Palpation of Joints or Extremities Neurological: Cranial nerves II-XII grossly intact Psych/Mental Status: Normal Affect, Appropriate Microbiology Past 72 Hours 11/04/19 16:21 Sputum, Induced/Lukens Gram Stain - Final 11/04/19 16:21 Sputum, Induced/Lukens Respiratory Culture - Final 11/03/19 20:51 Blood Culture (Wb) - Left Wrist Blood Culture - Preliminary No growth in 48 hours. 11/03/19 20:45 Blood Culture (Wb) - Anticubital Right Blood Culture - Preliminary No growth in 48 hours. 11/06/19 04:35 Stool Stool Occult Blood (JANET) - Final Occult Blood Positive 11/03/19 20:50 Urine Catheter - Catheter Urine Culture - Final Klebsiella pneumoniae sp pneum Laboratory Results 11/04/19 00:55: Hep B Core Total Ab Negative, Hep B Core IgM Ab Negative 11/07/19 17:23: POC Glucose 112 H 11/07/19 21:46: POC Glucose 116 H 11/08/19 05:51: POC Glucose 117 H 11/08/19 06:08: WBC 7.0, RBC 3.09 L, Hgb 9.2 L, Hct 29.9 L, MCV 96.8 H, MCH 29.8, MCHC 30.8 L, RDW Std Deviation 54.6 H, RDW Coeff of Melissa 15.9 H, Plt Count 155, MPV 8.3, Immature Gran % (Auto) 1.800 H, Neut % (Auto) 73.0 H, Lymph % (Auto) 11.1 L, [place] % (Auto) 10.1 H, Eos % (Auto) 3.3, Baso % (Auto) 0.7, Abs olute Neuts (auto) 5.1, Absolute Lymphs (auto) 0.78 L, Nucleated RBC % 0 11/08/19 06:08: Sodium 136, Potassium 3.8, Chloride 100, Carbon Dioxide 29.0, Anion Gap 7, BUN 25 H, Creatinine 4.26 H, Estim Creat Clear Calc 20.58, Est GFR (MDRD) Af Amer 18 L, Est GFR (MDRD) Non-Af 15 L, BUN/Creatinine Ratio 5.9 L, Glucose 111 H, Calcium 7.9 L 11/08/19 06:08: Hemoglobin A1c 9.1 H Current Medications Acetaminophen (Tylenol) 650 mg PO Q6H PRN PRN PRN Reason: Pain Score 1-10/Temp > 100.7 F Apixaban (Eliquis) 5 mg PO BID [facility] Last Admin: 11/05/19 21:51 Dose: 5 mg Documented by: Atorvastatin Calcium (Lipitor) 40 mg PO QHS [facility] Last Admin: 11/07/19 21:48 Dose: 40 mg Documented by: Calamine/Phenol (Calmoseptine Ointment) 1 applic TOPICAL BID [facility]; Protocol Last Admin: 11/08/19 10:37 Dose: 1 applicatio Documented by: Glucagon () 1 mg IM .X1 PRN PRN Reason: Hypoglycemia Heparin Sodium (Porcine) () 2,500 units IV UD PRN PRN Reason: Dialysis Cath Heparin Flush Sodium Chloride () 250 mls @ 15 mls/hr IV .[id number] PRN PRN Reason: Saline Flush Last Infusion: 11/06/19 12:31 Dose: 0 mls/hr Documented by: Dextrose (Dextrose 10%-Water) 250 mls @ 999 mls/hr IV X1 PRN; Protocol PRN Reason: HYPOGLYCEMIA Ceftriaxone Sodium 2 gm/ (Sodium Chloride) 50 mls @ 100 mls/hr IV Q24 [facility] Last Infusion: 11/08/19 11:19 Dose: Infused Documented by: Insulin Human Lispro (Humalog Kwikpen ([facility])) 0 unit SC ACHS [facility]; Protocol Last Admin: 11/08/19 11:38 Dose: Not Given Documented by: Levothyroxine Sodium (Synthroid) 25 mcg PO DAILY@0600 [facility] Last Admin: 11/08/19 05:18 Dose: 25 mcg Documented by: Midodrine (Proamatine) 10 mg PO DAILY [facility] Last Admin: 11/08/19 10:37 Dose: 10 mg Documented by: Pantoprazole Sodium (Protonix) 40 mg PO DAILY [facility] Last Admin: 11/08/19 10:37 Dose: 40 mg Documented by: Polyethylene Glycol (Miralax) 17 gm PO BID [facility] Last Admin: 11/08/19 10:37 Dose: Not Given Documented by: Senna/Docusate Sodium (Senokot-S, Meily-Colace) 1 tablet PO BID [facility] Last Admin: 11/08/19 10:38 Dose: Not Given Documented by: Silver Sulfadiazine (Silvadene (Bk)) 1 applic TOPICAL BID [facility]; Protocol Last Admin: 11/07/19 21:49 Dose: 1 applicatio Documented by: Sodium Chloride () 10 ml IV UD PRN PRN Reason: Dialysis Catheter Flush Last Admin: 11/07/19 09:34 Dose: 10 ml Documented by: Sodium Chloride () 10 - 40 ml IV UD PRN PRN Reason: SALINE FLUSH Last Admin: 11/06/19 11:40 Dose: 10 ml Documented by: Medical Necessity - Tobacco Use Smoking Status: Former smoker - Patient used to to chew tobacco but now he has quit Assessment/Plan All Active Problems (This Medical Record has been edited. Action required.) Ulcer of left lower extremity with fat layer exposed (Acute) Ulcer of right lower extremity with fat layer exposed (Acute) Decubitus ulcer of coccyx, stage 2 (Acute) Hyperkalemia (Acute) Renal failure (Acute) Pneumonia (Acute) Shock liver (Acute) Anemia (Acute) Chronic ulcer of left foot with fat layer exposed (Resolved) Ulcer of left foot (Resolved) Leg wound, left (Acute) Healed ulcer of left foot on examination (Acute) Diabetic foot infection (Resolved) ESRD Hyperkalemia severe resolved Klebsiella UTI Chronic hypotension Respiratory failure s/p extubation Heart failure HD Wednesday dialysis per his schedule. antibiotics as per primary. negative at 48 hours blood cultures Use WALTER with next dialysis continue to monitor hemoglobin and transfuse as needed if hemoglobin less than 7 Monitor phosphorus and calcium
--- NOTE | 2019-11-08 14:23 | CASEMGMT ---
RN МАРИЯ NOTE: Participated in PCU rounds @ bedside. Discussed discharge planning. Pt states he would like [facility] as he has had them in the past. Call placed to Camille @ [facility] and referral made for [facility]ci, PT/OT. She was made aware anticipate discharge tomorrow 11/09 and she is aware pt has dialysis T//S. She states start of care would be Wednesday. Pt is agreeable to this and Camille made aware. Lorena ANDREWSN RN CM
[2019-11-08] MEDS: Silver Sulfadiazine 1% Crm 50 gm Bottle 1 APPLIC TOPICAL ×2 (14:48→22:32)
[2019-11-08] MEDS: Insulin Lispro 100 UNIT/ML INSULN.PEN SC ×2 (16:22→22:30)
[2019-11-08] MEDS: Atorvastatin Calcium 40 MG Tablet PO (22:34)
[2019-11-09] VITALS (7 sets, daily range): BP systolic 100–122; BP diastolic 62–68; PULSE 96–98; RESP 18; TEMP 36.3–36.5; O2SAT 93–95
[2019-11-09] MEDS: Levothyroxine 25 MCG TABLET PO (05:05)
[2019-11-09 06:33] LABS: Absolute Neutrophil Count 5.5 X10^3/uL (2.0-7.7); Basophil# 0.05 X10^3/uL; Basophil% 0.7 % (0-1); Eosinophil# 0.26 X10^3/uL; Eosinophils% 3.4 % (0-5); Hematocrit 30.9 % (40-54); Hemoglobin 9.3 g/dL (13.0-16.5); Lymphocyte % 11.8 % (19-41); Mean Corp Hgb Conc 30.1 g/dL (32-36); Mean Corpuscular Hgb 29.2 pg (27.0-32.0); Mean Corpuscular Volume 97.2 fL (80-94); Mean Platelet Vol. 8.6 fl (6.2-12.0); Monocyte# 0.78 X10^3/uL; Monocyte% 10.2 % (0-10); NRBC Flagged by Analyzer 0 % (0-5); Neutrophil % 71.8 % (47-70); Platelet Count 157 K/mm3 (150-450); RBC Distribution Width CV 15.9 % (11.6-14.6); RBC Distribution Width SD 56.1 fl (35.1-43.9); Red Blood Count 3.18 M/mm3 (4.6-6.2); White Blood Count 7.7 K/mm3 (4.4-11.0)
[2019-11-09 06:51] LABS: Anion Gap 6 (5-15); BUN 34 mg/dL (7-18); BUN/Creat Ratio 5.9 RATIO (10-20); Calcium,Total 8.3 mg/dL (8.5-10.1); Chloride 100 mmol/L (98-107); Creatinine, Serum 5.72 mg/dL (0.70-1.30); EST Glomerular Filtration Rate 11 mL/min (>60); Est Glom Filt Rate - Afr Amer 13 mL/min (>60); Estimated Creatinine Clearance 15.33 ml/min; Glucose 135 mg/dL (74-106); Potassium 4.1 mmol/L (3.5-5.1); Sodium Level 136 mmol/L (136-145)
[2019-11-09 07:16] LABS: Bedside Glucose 156 mg/dL (70-110)
[2019-11-09 07:16] LABS: Bedside Glucose 139 mg/dL (70-110)
[2019-11-09 07:16] LABS: Bedside Glucose 187 mg/dL (70-110)
[2019-11-09 07:16] LABS: Bedside Glucose 116 mg/dL (70-110)
[2019-11-09] MEDS: Menthol/Lanolin/Calamine/Znox 113 GM Tube 1 APPLIC TOPICAL (08:20)
[2019-11-09] MEDS: Pantoprazole Sodium 40 MG Tablet PO (08:20)
[2019-11-09] MEDS: Midodrine HCl 5 MG Tablet 10 MG PO (08:20)
[2019-11-09] MEDS: Silver Sulfadiazine 1% Crm 50 gm Bottle 1 APPLIC TOPICAL (08:24)
--- NOTE | 2019-11-09 10:05 | PCM.DC ---
- Discharge Diagnoses Current Active Problems: Current Active and Chronic Problems (This Medical Record has been edited. Action required.) Hyperkalemia (Acute) Renal failure (Acute) Pneumonia (Acute) Shock liver (Acute) Anemia (Acute) You will use the following diet at home:: Cardiac Your food should be the consistency of: Regular Your liquids should be the consistency of: Regular/Thin Discharge Activity: Return to Normal Activity Weight Bearing Status: Weight bearing as tolerated Call your doctor if you observe: Fever of 101 or Higher, Shortness of breath, Fainting spells, Swelling in the ankles Instructions: Low Blood Pressure (Hypotension), Sepsis, Hyperkalemia, Understanding Urinary Tract Infections (UTIs) Allergies/Adverse Reactions: Allergies CONTRAST DYE Adverse Reaction (Uncoded 11/07/19 12:51) Other Medications to take at Discharge Aspirin [Adult Low Dose Aspirin EC] 81 mg PO DAILY 08/28/15 Gabapentin [Neurontin] 300 mg PO TIDCM 08/28/15 Insulin Glargine,Hum.rec.anlog [Lantus] 60 units SQ QHS 08/28/15 Lovastatin [Mevacor] 20 mg PO DAILY 08/28/15 Insulin Aspart [Novolog Flexpen] 26 units SC TIDCM 11/14/15 ALPRAZolam [Xanax] 0.25 mg PO TID 11/03/19 Apixaban [Eliquis] 5 mg PO BID 11/03/19 Atorvastatin Calcium 40 mg PO QHS 11/03/19 Gabapentin [Neurontin] 300 mg PO BID 11/03/19 Levothyroxine 25 mg PO DAILY 11/03/19 Midodrine HCl 10 mg PO DAILY 11/03/19 Please follow up with your Primary Care Physician in: PCP within one week Test Results: Test results from this visit will be discussed in further detail at your follow-up appointment, if applicable. Please Follow Up With: Nigel Fischer MD When: 1-2 weeks When: spinning bath patroller in 1-2 weeks Please Follow Up With: Khanh Brandon MD When: 2-4 weeks Proposed Discharge Date: 11/09/19
--- NOTE | 2019-11-09 10:10 | DS.PCM_ITS ---
Discharge Date and Diagnosis Date of Admission: 11/03/19 Date of Discharge: 11/09/19 - Primary Discharge Diagnosis Active and Suspected Problems (This Medical Record has been edited. Action required.) Septic shock (Suspected) Hyperkalemia (Acute) Renal failure (Acute) Pneumonia (Acute) Urinary tract infection (Suspected) Shock liver (Acute) Acute respiratory failure with hypoxia and hypercarbia (Suspected) Anemia (Acute) - Secondary Discharge Diagnosis Chronic Problems (This Medical Record has been edited. Action required.) Equinus contracture of left ankle (Chronic) Hammer toe of left foot (Chronic) Diabetic neuropathy (Chronic) CHF (congestive heart failure) (Chronic) Infected skin ulcer with fat layer exposed (Chronic) Ulcer of left foot (Chronic) Diabetic foot ulcer associated with secondary diabetes mellitus (Chronic) Swelling of lower extremity (Chronic) Hyperlipidemia (Chronic) Hypertension (Chronic) Diabetes mellitus (Chronic) History of MS (myocardial infarction) (Chronic) Coronary artery arteriosclerosis (Chronic) Venous insufficiency of both lower extremities (Chronic) Edema, lower extremity (Chronic) Peripheral vascular disease (Chronic) Hospital Course and Treatment Imaging Results: Diagnostic Data Chest X-Ray 11/03/19 20:56 IMPRESSION: Lines and tubes as above. Hypoinflated lungs with bibasilar atelectasis. Electronically Signed: Manpreet Beltre DO at 21:24 EST Tel , Service support , Foot X-Ray 11/04/19 00:39 IMPRESSION: Degenerative and postsurgical changes as above. Possible osteomyelitis involving the head of the second metatarsal. Diffuse soft tissue swelling. Electronically Signed: Manpreet Beltre DO at 10:15 EST Tel , Service support , Liver Ultrasound 11/04/19 11:40 IMPRESSION: Limited exam. Diffuse fatty liver. Ascites. Left liver lobe lesion, as described above and suggestive of hemangioma. Neoplastic process cannot be excluded. If indicated, benign etiology can be assessed with CT of the abdomen, three-phase protocol. 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 He was admitted through the ED on 11/03/2019 after he was found unresponsive. He had been seen at [facility] emergency department the day before admission on acc ount of confusion. There he was diagnosed with dehydration and hydrated and discharged. However his symptoms persisted until he was found unresponsive and so brought to the ED. On admission, he was hypotensive and had elevated lactic acid. He was tachycardic and tachypneic and was also hyperkalemic. Initial blood pressure was 87/66. He was admitted and managed for acute metabolic encephalopathy due to septic shock as well as hyperkalemia. Source of infection was probably thought to be due to the urine or lungs. He was started on IV vancomycin and Zosyn and hydrated per sepsis protocol. He was intubated to protect his airway. He was also given Kayexalate in the ED and nephrology was urgently consulted for emergent dialysis. Patient had emergent dialysis on day of admission. He also had elevated liver enzymes and hemoglobin dropped from 9.7 on admission to 8.3. Patient was successfully extubated 2 days after admission. Per kalemia resolved and liver enzymes also gradually trended down. Right upper quadrant ultrasound done showed diffuse fatty liver and ascites. Hemoglobin dropped to 8 and stool for occult blood was checked as patient is on Eliquis. Stool for occult blood was positive so general surgery was consulted. 2D echo done showed EF of 55% with mildly dilated left ventricle and segmental dysfunction with hypokinetic apex. Carvedilol was held on account of hypotension and patient was started on midodrine. Antibiotics were subsequently de-escalated to IV ceftriaxone. Blood cultures were negative. Urine however culture Klebsiella. Patient said that he had been told that because his EF had reduced to 35%, his pacemaker needed to be updated to a defibrillator. Patient had EGD and colonoscopy; colonoscopy was normal and EGD showed diffuse mildly e rythematous mucosa in the duodenum without active bleeding and no stigmata of bleeding in the second portion of the duodenum. The erythematous mucosa was biopsied. Per general surgery, it was okay for patient to continue being on Eliquis. Patient remained stable though his blood pressure was running low throughout the admission. As such, all his blood pressure medications were discontinued at time of discharge, as the day of discharge, blood pressure was 100/68. Patient has regular dialysis sessions during admission. Of note, patient had hot water burgos on his right foot which she had experienced about a month ago and he was being followed up at [facility] for this. Wound care was on board during this admission. Patient remained stable and was discharged home on 11/09/2019. He is to follow-up with his primary care doctor, nephrology and cardiology. Patient seen and examined prior to discharge. He had no complaints and felt well and was eager to go home. Review of systems otherwise negative. Labs and vitals reviewed. Home medication reviewed and reconciled. o/e: Vital Signs Height 6 ft 1 in Weight: 312 lb 6.32 oz Weight in Pounds 312.4 lbs Pulse Ox 95 Temperature 97.4 F Pulse Rate 96 Respiratory Rate 18 Blood Pressure [BP] 92/57 Blood Pressure 100/68 Blood Pressure Position [BP] Semi-Fowlers Blood Pressure Position Semi-Fowlers [] General: Alert, Oriented x3, Cooperative, No apparent distress HEENT: Atraumatic, PERRLA, EOMI, Normocephalic Oral: Dry Mucosa Neck: Supple, No JVD, Negative Carotid Bruits Lungs: Clear to auscultation, Normal air movement, No rhonchi, No wheeze, No rales Cardiovascular: Regular rate, Regular Rhythm, Normal S1, Normal S2, No murmurs Abdomen: Bowel Sounds Present, Soft, Non Tender, Non-Distended, No Hepato- splenomegaly Extremities: No clubbing, No cyanosis, No edema, Capillary Refill Less than 3 Seconds Skin: No rashes, No breakdown Musculoskeletal: No Tenderness to Palpation of Joints or Extremities, dialysis catheter in chest Lymphatic: No Cervical, Supraclavicular, or Inguinal Adenopathy Neurological: Cranial nerves II-XII grossly intact, Neuro grossly intact, Motor Exam 5/5 strength throughout Psych/Mental Status: Normal Affect, Appropriate, Alert and oriented to time, place, person, mood and affect Plan as above. - Physical Exam Vitals/I&O's: Vital Signs Temp Pulse Resp BP Pulse Ox 97.7 F L 96 18 101/66 93 11/09/19 08:50 11/09/19 08:50 11/09/19 08:50 11/09/19 08:50 11/09/19 08:50 Oxygen Flow Rate (L/min) 3 Oxygen Delivery Method Room Air Weight: 312 lb 6.32 oz Body Mass Index (BMI) 41.1 Finger Stick Blood Glucose 177 Intake and Output for Last 24 Hours 11/07/19 11/08/19 11/09/19 23:59 23:59 23:59 Intake Total 530 / 770 1010 / 1070 120 / 120 Output Total 3200 / 3200 0 / 0 Balance -2670 / -2430 1010 / 1070 120 / 120 Microbiology Past 72 Hours 11/03/19 20:51 Blood Culture (Wb) - Left Wrist Blood Culture - Final No growth in 5 days. 11/03/19 20:45 Blood Culture (Wb) - Anticubital Right Blood Culture - Final No growth in 5 days. 11/04/19 16:21 Sputum, Induced/Lukens Gram Stain - Final 11/04/19 16:21 Sputum, Induced/Lukens Respiratory Culture - Final 11/06/19 04:35 Stool Stool Occult Blood (JANET) - Final Occult Blood Positive Laboratory Results 11/07/19 17:23: POC Glucose 112 H 11/07/19 21:46: POC Glucose 116 H 11/08/19 05:51: POC Glucose 117 H 11/08/19 11:36: POC Glucose 139 H 11/08/19 16:21: POC Glucose 187 H 11/08/19 22:29: POC Glucose 156 H 11/09/19 06:10: WBC 7.7, RBC 3.18 L, Hgb 9.3 L, Hct 30.9 L, MCV 97.2 H, MCH 29.2, MCHC 30.1 L, RDW Std Deviation 56.1 H, RDW Coeff of Melissa 15.9 H, Plt Count 157, MPV 8.6, Immature Gran % (Auto) 2.100 H, Neut % (Auto) 71.8 H, Lymph % (Auto) 11.8 L, [place] % (Auto) 10.2 H, Eos % (Auto) 3.4, Baso % (Auto) 0.7, Absolute Neuts (auto) 5.5, Absolute Lymphs (auto) 0.90, Nucleated RBC % 0 11/09/19 06:10: Sodium 136, Potassium 4.1, Chloride 100, Carbon Dioxide 30.0, Anion Gap 6, BUN 34 H, Creatinine 5.72 H, Estim Creat Clear Calc 15.33, Est GFR (MDRD) Af Amer 13 L, Est GFR (MDRD) Non-Af 11 L, BUN/Creatinine Ratio 5.9 L, Glucose 135 H, Calcium 8.3 L 11/09/19 06:46: POC Glucose 116 H Current Medications Acetaminophen (Tylenol) 650 mg PO Q6H PRN PRN PRN Reason: Pain Score 1-10/Temp > 100.7 F Apixaban (Eliquis) 5 mg PO BID [facility] Last Admin: 11/05/19 21:51 Dose: 5 mg Documented by: Atorvastatin Calcium (Lipitor) 40 mg PO QHS [facility] Last Admin: 11/08/19 22:34 Dose: 40 mg Documented by: Calamine/Phenol (Calmoseptine Ointment) 1 applic TOPICAL BID [facility]; Protocol Last Admin: 11/09/19 08:20 Dose: 1 applicatio Documented by: Glucagon () 1 mg IM .X1 PRN PRN Reason: Hypoglycemia Heparin Sodium (Porcine) () 2,500 units IV UD PRN PRN Reason: Dialysis Cath Heparin Flush Sodium Chloride () 250 mls @ 15 mls/hr IV .[id number] PRN PRN Reason: Saline Flush Last Infusion: 11/06/19 12:31 Dose: 0 mls/hr Documented by: Dextrose (Dextrose 10%-Water) 250 mls @ 999 mls/hr IV X1 PRN; Protocol PRN Reason: HYPOGLYCEMIA Ceftriaxone Sodium 2 gm/ (Sodium Chloride) 50 mls @ 100 mls/hr IV Q24 [facility] Last Infusion: 11/08/19 11:19 Dose: Infused Documented by: Insulin Human Lispro (Humalog Kwikpen (Bkc)) 0 unit SC ACHS [facility]; Protocol Last Admin: 11/09/19 06:48 Dose: Not Given Documented by: Levothyroxine Sodium (Synthroid) 25 mcg PO DAILY@0600 [facility] Last Admin: 11/09/19 05:05 Dose: 25 mcg Documented by: Midodrine (Proamatine) 10 mg PO DAILY [facility] Last Admin: 11/09/19 08:20 Dose: 10 mg Documented by: Pantoprazole Sodium (Protonix) 40 mg PO DAILY [facility] Last Admin: 11/09/19 08:20 Dose: 40 mg Documented by: Polyethylene Glycol (Miralax) 17 gm PO BID [facility] Last Admin: 11/09/19 08:17 Dose: Not Given Documented by: Senna/Docusate Sodium (Senokot-S, Emily-Colace) 1 tablet PO BID [facility] Last Admin: 11/09/19 08:17 Dose: Not Given Documented by: Silver Sulfadiazine (Silvadene (Bkc)) 1 applic TOPICAL BID [facility]; Protocol Last Admin: 11/09/19 08:24 Dose: 1 applicatio Documented by: Sodium Chloride () 10 ml IV UD PRN PRN Reason: Dialysis Catheter Flush Last Admin: 11/07/19 09:34 Dose: 10 ml Documented by: Sodium Chloride () 10 - 40 ml IV UD PRN PRN Reason: SALINE FLUSH Last Admin: 11/06/19 11:40 Dose: 10 ml Documented by: Discharge Diet: Low fat/ Low Cholesterol Discharge Activity: Return to Normal Activity Weight Bearing Status: Weight bearing as tolerated Call your doctor if you observe: Fever of 101 or Higher, Shortness of breath, Fainting spells, Swelling in the ankles Home Medications: Medications to take at Discharge Aspirin [Adult Low Dose Aspirin EC] 81 mg PO DAILY 08/28/15 Gabapentin [Neurontin] 300 mg PO TIDCM 08/28/15 Insulin Glargine,Hum.rec.anlog [Lantus] 60 units SQ QHS 08/28/15 Insulin Aspart [Novolog Flexpen] 26 units SC TIDCM 11/14/15 ALPRAZolam [Xanax] 0.25 mg PO TID 11/03/19 Apixaban [Eliquis] 5 mg PO BID 11/03/19 Atorvastatin Calcium 40 mg PO QHS 11/03/19 Levothyroxine [Synthroid] 25 mcg PO DAILY #0 11/03/19 Midodrine HCl 10 mg PO DAILY 11/03/19 Please follow up with your Primary Care Physician in: PCP within one week Please Follow Up With: Nigel Fischer MD When: 1-2 weeks 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
--- NOTE | 2019-11-09 11:17 | PHA.DC.MR ---
Pharmacy Service has performed discharge medication reconciliation for this patient. No new medications at time of discharge. Medications reviewed are previously reported home medications. The patient's discharge medication list was reviewed for discrepancies and discrepancies were resolved. Home Medications Aspirin [Adult Low Dose Aspirin EC] 81 mg PO DAILY 08/28/15 Gabapentin [Neurontin] 300 mg PO TIDCM 08/28/15 Insulin Glargine,Hum.rec.anlog [Lantus] 60 units SQ QHS 08/28/15 Insulin Aspart [Novolog Flexpen] 26 units SC TIDCM 11/14/15 ALPRAZolam [Xanax] 0.25 mg PO TID 11/03/19 Apixaban [Eliquis] 5 mg PO BID 11/03/19 Atorvastatin Calcium 40 mg PO QHS 11/03/19 Levothyroxine [Synthroid] 25 mcg PO DAILY #0 11/03/19 Midodrine HCl 10 mg PO DAILY 11/03/19
[2019-11-09] MEDS: Insulin Lispro 100 UNIT/ML INSULN.PEN SC (12:06)
[2019-11-09] MEDS: Epoetin Alfa epbx 10,000 UNITS/ML 10000 UNIT IV (13:51)
[2019-11-09] MEDS: Heparin 10,000 UNITS/10 ML Vial IV (13:51)
--- NOTE | 2019-11-09 14:07 | DIALYSIS ---
HD x4.5 hours completed at 1330, stable tx, UF 3500mL, accessed via right chest tunneled dialysis catheter, retacrit given during tx
--- NOTE | 2019-11-09 15:04 | PCM.PN.REN ---
Subjective: no new events - Physical Exam Vitals/I&O's: Vital Signs Temp Pulse Resp BP Pulse Ox 97.4 F L 96 18 100/68 95 11/09/19 13:52 11/09/19 13:52 11/09/19 13:52 11/09/19 13:52 11/09/19 13:52 Oxygen Flow Rate (L/min) 3 Oxygen Delivery Method Room Air Weight: 141.7 kg Body Mass Index (BMI) 41.1 Finger Stick Blood Glucose 177 Intake and Output for Last 24 Hours 11/07/19 11/08/19 11/09/19 23:59 23:59 23:59 Intake Total 530 / 770 1010 / 1070 410 / 410 Output Total 3200 / 3200 0 / 0 3500 / 3500 Balance -2670 / -2430 1010 / 1070 -3090 / -3090 General: Alert, Oriented x3, Cooperative HEENT: Atraumatic, PERRLA, EOMI, Normocephalic Neck: Supple, No JVD, Negative Carotid Bruits Lungs: Clear to auscultation, Normal air movement Cardiovascular: Regular rate, No murmurs Abdomen: Bowel Sounds Present, Soft, Non Tender Extremities: No edema, Capillary Refill Less than 3 Seconds Skin: No rashes, No breakdown Musculoskeletal: No Tenderness to Palpation of Joints or Extremities Neurological: Cranial nerves II-XII grossly intact Psych/Mental Status: Normal Affect, Appropriate Microbiology Past 72 Hours 11/03/19 20:51 Blood Culture (Wb) - Left Wrist Blood Culture - Final No growth in 5 days. 11/03/19 20:45 Blood Culture (Wb) - Anticubital Right Blood Culture - Final No growth in 5 days. 11/04/19 16:21 Sputum, Induced/Lukens Gram Stain - Final 11/04/19 16:21 Sputum, Induced/Lukens Respiratory Culture - Final Laboratory Results 11/08/19 11:36: POC Glucose 139 H 11/08/19 16:21: POC Glucose 187 H 11/08/19 22:29: POC Glucose 156 H 11/09/19 06:10: WBC 7.7, RBC 3.18 L, Hgb 9.3 L, Hct 30.9 L, MCV 97.2 H, MCH 29.2, MCHC 30.1 L, RDW Std Deviation 56.1 H, RDW Coeff of Melissa 15.9 H, Plt Count 157, MPV 8.6, Immature Gran % (Auto) 2.100 H, Neut % (Auto) 71.8 H, Lymph % (Auto) 11.8 L, [place] % (Auto) 10.2 H, Eos % (Auto) 3.4, Baso % (Auto) 0.7, Absolute Neuts (auto) 5.5, Absolute Lymphs (auto) 0.90, Nucleated RBC % 0 11/09/19 06:10: Sodium 136, Potassium 4.1, Chloride 100, Carbon Dioxide 30.0, Anion Gap 6, BUN 34 H, Creatinine 5.72 H, Estim Creat Clear Calc 15.33, Est GFR (MDRD) Af Amer 13 L, Est GFR (MDRD) Non-Af 11 L, BUN/Creatinine Ratio 5.9 L, Glucose 135 H, Calcium 8.3 L 11/09/19 06:46: POC Glucose 116 H Medical Necessity - Tobacco Use Smoking Status: Former smoker Assessment/Plan All Active Problems (This Medical Record has been edited. Action required.) Ulcer of left lower extremity with fat layer exposed (Acute) Ulcer of right lower extremity with fat layer exposed (Acute) Decubitus ulcer of coccyx, stage 2 (Acute) Hyperkalemia (Acute) Renal failure (Acute) Pneumonia (Acute) Shock liver (Acute) Anemia (Acute) Chronic ulcer of left foot with fat layer exposed (Resolved) Ulcer of left foot (Resolved) Leg wound, left (Acute) Healed ulcer of left foot on examination (Acute) Diabetic foot infection (Resolved) ESRD Hyperkalemia severe resolved Klebsiella UTI Chronic hypotension Respiratory failure s/p extubation Heart failure HD Wednesday dialysis per his schedule. seen on HD today
[2019-11-09 15:06] LABS: Bedside Glucose 153 mg/dL (70-110)
--- NOTE | 2019-11-10 10:56 | CASEMGMT ---
Call from pt's [employer] CM, Tricia Cotton, and she is updated on pt's discharge plan at this time, voices understanding. CM states she will stop out and see pt 'soon'. Message left with ROXANNA Reyes at [facility], in regards to contact for CM and pt discharge plan. Kiara AMATO CM
--- NOTE | 2019-11-10 17:03 | CASEMGMT ---
.LM CM Discharge Follow-Up Phone Call. Lace: 12 Strata: 4 Discharge Date: 11/09/19 Adm Dx: Septic Shock Attempted discharge follow-up phone call. No answer. Message left for pt to return call to [facility] or to [facility] if he has any questions or concerns about the discharge instructions, medications, or follow-up appts. Lorena KLINE RN CM
== END 2019-11-09 14:42 | disposition home health service (06) | DRG 871 ==
LOC: ED 22:10 → ICU 11-04 01:21 → PCU 11-06 10:27
PROVIDERS: Internal Medicine; Surgery; Admitting Provider Hospitalist; Emergency Provider Emergency Medicine; Referring Provider Hospitalist; Visit Provider Student in an Organized Health Care Education/Training Program
PROC: 0DJD8ZZ Inspection of Lower Intestinal Tract, Via Natural or Artificial Opening Endoscopic (ICD-10-PCS; CPT 45378; principal; 2019-11-08 07:25)
DX: A41.89 Other specified sepsis (principal); R65.21 Severe sepsis with septic shock; N18.6 End stage renal disease; K72.00 Acute and subacute hepatic failure without coma; J96.01 Acute respiratory failure with hypoxia; J96.02 Acute respiratory failure with hypercapnia; J18.9 Pneumonia, unspecified organism; G93.41 Metabolic encephalopathy; T25.322A Burn of third degree of left foot, initial encounter; I50.22 Chronic systolic (congestive) heart failure; Z68.41 Body mass index [BMI] 40.0-44.9, adult; E87.5 Hyperkalemia; L89.152 Pressure ulcer of sacral region, stage 2; N30.90 Cystitis, unspecified without hematuria; Z99.2 Dependence on renal dialysis; D50.9 Iron deficiency anemia, unspecified; K64.2 Third degree hemorrhoids; E03.9 Hypothyroidism, unspecified; E78.5 Hyperlipidemia, unspecified; E66.01 Morbid (severe) obesity due to excess calories; X11.8XXA Contact with other hot tap-water, initial encounter; K31.89 Other diseases of stomach and duodenum; Y92.019 Unspecified place in single-family (private) house as the place of occurrence of the external cause; I95.89 Other hypotension; I25.10 Atherosclerotic heart disease of native coronary artery without angina pectoris; R19.5 Other fecal abnormalities; Z87.891 Personal history of nicotine dependence; Z79.01 Long term (current) use of anticoagulants; Z95.0 Presence of cardiac pacemaker; I25.2 Old myocardial infarction; Z95.1 Presence of aortocoronary bypass graft
CPT/HCPCS: 31500; 31720; 36415; 36600; 51702; 71045; 73630; 76705; 80048; 80053; 80076; 81001; 82274; 82728; 82803; 82962; 83036; 83540; 83550; 83605; 83735; 84100; 84443; 85025; 85610; 85652; 85730; 86140; 86704; 86705; 86706; 87040; 87070; 87077; 87086; 87088; 87186; 87205; 87340; 87449; 87641; 88305; 90937; 93005; 93306; 94002; 94003; 94660; 95831; 97110; 97162; 97165; 97530; 97802; 99251; 99285; J7030; J7040; J7050; J7120; P9047; Q9957; A4216; C8929; G0257; G0463; J0610; J0696; J2405; J3490; Q5106

== ENCOUNTER → 2019-12-25 09:36 | Outpatient (CLI) | payer MEDICARE, SELFPAY ==
[2019-11-09 12:08] VITALS: BMI 41.1
--- NOTE | 2019-12-25 10:13 | VDLE_ITS ---
Reason For Study: R/O DVT RIGHT LEFT GSV is normal. GSV is normal. CFV is compressible, spontaneous, phasic, CFV is compressible, spontaneous, phasic, competent and demonstrates normal competent, and demonstrates normal augmentation. augmentation. FV is compressible, spontaneous, phasic, FV is compressible, spontaneous, phasic, competent and demonstrates normal competent and demonstrates normal augmentation. augmentation. POP V is compressible, spontaneous, phasic, POP V is compressible, spontaneous, phasic, competent and demonstrates normal competent and demonstrates normal augmentation. augmentation. T/P Trunk is compressible. T/P Trunk is compressible. PTV is compressible. PTV is compressible. RT PerV is compressible. LT PerV is compressible. Procedure Exam performed in department. Technically difficult calf vein visualization. A preliminary report was called and/or faxed to [facility]. Interpretation Summary No evidence for acute deep venous thrombosis bilateral lower extremities with patent and compressible bilateral great saphenous veins. Right groin nodule 2.33 x 1.19 cm Left groin nodule 2.38 x 1.3 cm Findings would be consistent with adenopathy, clinical correlation would be appropriate Ordering Physician: DIMITRY ARNDT Referring Physician: IBAN CHEATHAM Performed By: Hannah Valdez, JOHN, RVT
== END ==
PROVIDERS: Family Provider Internal Medicine Infectious Disease; PCP Internal Medicine Infectious Disease
DX: R60.0 Localized edema (principal); I73.9 Peripheral vascular disease, unspecified; E11.21 Type 2 diabetes mellitus with diabetic nephropathy; Z79.4 Long term (current) use of insulin; T25.332A Burn of third degree of left toe(s) (nail), initial encounter; X08.8XXA Exposure to other specified smoke, fire and flames, initial encounter; Y93.9 Activity, unspecified; Y92.9 Unspecified place or not applicable; Y99.9 Unspecified external cause status
CPT/HCPCS: 93970

== ENCOUNTER 2020-08-29 10:15 | Inpatient (IN) | payer MEDICARE, SELFPAY ==
[2019-11-09 12:08] VITALS: BMI 41.1
[2020-08-29] VITALS (39 sets, daily range): BP systolic 81–155; BP diastolic 53–103; PULSE 67–93; RESP 12–26; TEMP 35.8–36.6; O2SAT 82–100; BMI 41.0; BMI 41.1
--- NOTE | 2020-08-29 10:16 | EKG12_ITS ---
Test Reason : STROKE TEAM Blood Pressure : / mmHG Vent. Rate : 070 BPM Atrial Rate : 070 BPM P-R Int : 000 ms QRS Dur : 196 ms QT Int : 518 ms P-R-T Axes : 042 140 044 degrees QTc Int : 559 ms Ventricular-paced rhythm Biventricular pacemaker detected Abnormal ECG Confirmed by FINA CERON, SAMANTHA ([id number]), visual effects editor BUDDY OSORIO ([id number]) on 09/04/2020 10:58:17 AM Referred By: ESAU Confirmed By:TREVIN HARDEN MD
--- NOTE | 2020-08-29 10:25 | CT_ITS ---
STUDY: CT BRAIN WITHOUT CONTRAST REASON FOR EXAM: Male, 60 years old. STOKE RADIATION DOSAGE (If Supplied By Facility): CTDIvol = ( 44.99 ) mGy, DLP = ( 1760.95 ) mGycm TECHNIQUE: Transaxial CT imaging of the brain was performed without administration of intravenous contrast material. Individualized dose optimization techniques were used for this CT. COMPARISON: No relevant priors. FINDINGS: Normal soft tissue structures. Normal calvarium. Normal size ventricles and extra-axial spaces for the patient''s age. Normal white matter tracts of the cerebral hemispheres. Normal basal ganglia and thalami. Normal brainstem. Normal cerebellum. There is no intracranial hemorrhage. There are no findings of an acute ischemic infarction. Mild mucosal thickening in the left frontal sinus. CT/Brain/Head without Contrast IMPRESSION: 1. Normal unenhanced CT scan of the brain at this time. 2. Total ASPECTS score: 10. N.B. : The above information has been verbally conveyed by Bud Lee MD to Dr. Sherin MD, on 08/29/2020 10:39:09 (ET). Electronically Signed: Bud Lee MD at 10:39 EDT , Service support ,
[2020-08-29 10:32] LABS: Absolute Lymphocyte Count 0.58 X10^3/uL (0.83-4.51); Absolute Neutrophil Count 6.7 X10^3/uL (2.0-7.7); Basophil# 0.04 X10^3/uL; Basophil% 0.5 % (0-1); Eosinophil# 0.16 X10^3/uL; Eosinophils% 1.9 % (0-5); Hematocrit 33.1 % (40-54); Hemoglobin 9.8 g/dL (13.0-16.5); Lymphocyte # 0.58 X10^3/ul (4.0); Mean Corp Hgb Conc 29.6 g/dL (32-36); Mean Corpuscular Hgb 29.5 pg (27.0-32.0); Mean Corpuscular Volume 99.7 fL (80-94); Mean Platelet Vol. 8.9 fl (6.2-12.0); Monocyte# 0.79 X10^3/uL; Monocyte% 9.5 % (0-10); NRBC Flagged by Analyzer 0.2 % (0-5); Neutrophil # 6.65 X10^3/uL (2.7-7.7); Neutrophil % 80.4 % (47-70); POSITIVE DIFFERENTIAL YES; Platelet Count 174 K/mm3 (150-450); RBC Distribution Width CV 16.7 % (11.6-14.6); RBC Distribution Width SD 59.1 fl (35.1-43.9); Red Blood Count 3.32 M/mm3 (4.6-6.2); White Blood Count 8.3 K/mm3 (4.4-11.0)
[2020-08-29 10:33] LABS: Differential Indicated SCAN CRITERIA MET
[2020-08-29] MEDS: DiphenhydrAMINE 50 MG/ML Syringe 25 MG IV (10:40)
[2020-08-29 10:41] LABS: International Normalized Ratio 1.4; Prothrombin Time (Protime)PT. 16.6 SECONDS (11.7-14.9)
[2020-08-29] MEDS: MethylPREDNISolone 125 MG/2 ML Vial IV (10:41)
[2020-08-29 10:42] LABS: Partial Thromboplast Time 37.7 Seconds (24.1-36.2)
--- NOTE | 2020-08-29 10:47 | ED.RN ---
juanita montgomery [phone]
[2020-08-29 10:51] LABS: Differential Comment SCANNED
[2020-08-29 10:52] LABS: Anion Gap 13 (5-15); BUN 82 mg/dL (7-18); BUN/Creat Ratio 10.7 RATIO (10-20); Calcium,Total 7.8 mg/dL (8.5-10.1); Chloride 102 mmol/L (98-107); Creatinine, Serum 7.64 mg/dL (0.70-1.30); EST Glomerular Filtration Rate 8 mL/min (>60); Est Glom Filt Rate - Afr Amer 9 mL/min (>60); Glucose 114 mg/dL (74-106); Potassium 3.8 mmol/L (3.5-5.1); Sodium Level 140 mmol/L (136-145)
--- NOTE | 2020-08-29 11:05 | ED.RN ---
PT SATS DROPPED 82% BREATHING MIST AND GARGLED. RESPIRATORY AND DR CIFUENTES NOTIFIED. PEPPING TO INTUBATE.
[2020-08-29] MEDS: Etomidate 20 MG/10 ML Vial IV (11:15)
--- NOTE | 2020-08-29 11:16 | ED.RN ---
1115 20 ETOMIDATE ADMINISTERED VIA IV 1117 100 SUCC ADMINISTERED PER IV. PT SEDATED, DR CIFUENTES INTUBATED. COLOR CHANGED NOTED. LS AUSCULTATED BILATERALLY. 7.5 TUBE 24 AT LIP 1118 SOFT RESTRAINTS APPLIED.
[2020-08-29] MEDS: Succinylcholine Chloride 200 MG/10 ML Vial 100 MG IV (11:17)
--- NOTE | 2020-08-29 11:20 | RAD_ITS ---
STUDY: X-RAY CHEST REASON FOR EXAM: Male, 60 years old. ETT AND OG PLACEMENT -- STROKE SYMPTOMS THAT BEGAN AT 0930 AT DIALYSIS -- HX VT, PACEMAKER AND HEART CATH TECHNIQUE: AP supine portable view. COMPARISON: 11/03/2019. FINDINGS: Dual-chamber pacing lead tips remain in the right atrium and right ventricle. Double lumen right IJ approach catheter tip remains in the right atrial chamber. ET tube tip is 4 cm above the charu. OG tube courses down into the left gastric cardia along with its sidehole. Mild pulmonary hypoinflation. No suspicious infiltrates. Mild improvement of the subsegmental atelectases in both lungs. Right diaphragmatic calcification is unchanged. No pleural fluid. Mild cardiomegaly is unchanged. Normal mediastinum and celeste. Normal visualized pulmonary arteries. Normal visualized aortic arch and descending thoracic aorta. Normal visualized thoracic spine. Normal visualized ribs, clavicles, and shoulders. There is no demonstrated abnormality of the visualized soft tissue structures of the upper abdomen. RAD/Chest 1 View IMPRESSION: 1. Improving subsegmental atelectases in both lungs. 2. No acute cardiopulmonary pathology. 3. No significant interval change when compared to 11/03/2019. Electronically Signed: Bud Lee MD at 12:01 EDT , Service support ,
[2020-08-29] MEDS: Propofol 10MG/Ml 1,000 MG/100 ML Bottle 16.5 MG CONT INF (11:26)
--- NOTE | 2020-08-29 11:26 | ED.RN ---
PROPOPOL DRIP STARTED 10MCG. PER DR VERBAL ORDER
[2020-08-29] MEDS: Propofol 200 MG/20 ML Vial 40 MG IV BOLUS (11:33)
--- NOTE | 2020-08-29 11:33 | ED.RN ---
40 PROPOPOL ADMINISTERED. PER ORAL ORDER DR CIFUENTES
--- NOTE | 2020-08-29 11:50 | CT_ITS ---
STUDY: CTA HEAD AND NECK WITH CONTRAST REASON FOR EXAM: Male, 60 years old. STROKE RADIATION DOSAGE (If Supplied By Facility): CTDIvol = ( 32.88 ) mGy, DLP = ( 939.62 ) mGycm TECHNIQUE: CT angiography was performed with a multi-detector CT scanner. Data acquisition was obtained from the skull base through the vertex following intravenous administration of IV 100mL Isovue-370. MIP images were reconstructed from the axial data set. Post-processing of the angiographic images was performed, with multiplanar reformation and 3D reconstruction. Individualized dose optimization techniques were used for this CT. COMPARISON: CT head without contrast 08/29/2020. FINDINGS: Normal bilateral petrous carotid arteries. Normal right cavernous carotid artery with a normal supraclinoid bifurcation. Normal left cavernous carotid artery with a normal supraclinoid bifurcation. Normal right A1 segment of the anterior cerebral artery. Normal left A1 segment of the anterior cerebral artery. Normal intact anterior communicating artery (ACOM). Normal bilateral A2 segments of the anterior cerebral arteries. Normal right M1 and M2 segments of the middle cerebral arteries, with a normal M1 bifurcation. Normal left M1 and M2 segments of the middle cerebral arteries, with a normal M1 bifurcation. Normal right posterior communicating artery (PCOM). Normal left posterior communicating artery (PCOM). Normal bilateral vertebral arteries. Normal basilar artery with a normal basilar bifurcation. The visualized bilateral superior cerebellar (SCA) arteries are normal. Normal bilateral P1, P2 and visualized P3 segments of the posterior cerebral arteries. There is no demonstrated aneurysm of the [place] of [place]. There is no demonstrated abnormality of the visualized brain. AORTIC ARCH: Normal visualized aortic arch. Normal origins of the brachiocephalic, left common carotid, and left subclavian arteries. RIGHT CAROTID ARTERIES: Normal right common carotid artery (CCA). Calcified plaques in the right internal carotid bulb. 60% stenosis at the origin of the right internal carotid (ICA) artery bulb due to calcified plaques. The remainder of the right proximal internal carotid artery is widely patent. Normal visualized cervical portion of the right internal carotid artery. Normal origin of the right external carotid artery (ECA). LEFT CAROTID ARTERIES: Normal left common carotid artery (CCA). Nonocclusive calcified plaques in the left internal carotid bulb. Widely patent origin of the left internal carotid (ICA) artery without a hemodynamically significant stenosis. Normal visualized cervical portion of the left internal carotid artery. Normal origin of the left external carotid artery (ECA). VERTEBRAL ARTERIES: Normal bilateral vertebral arteries. The left is dominant. CT/CTA Head AND Neck W/ Contrast IMPRESSION: 1. No significant vaso-occlusive disease of the anterior and posterior intracranial circulation. 2. 60% stenosis of the right internal carotid artery bulb origin due to calcified plaques. The remainder of the right cervical internal carotid artery is widely patent. 3. Widely patent bilateral common carotid arteries. 4. Widely patent vertebral arteries, left is dominant. 5. Widely patent aortic arch and origins of the great vessels. 6. No more than 50% stenosis at the subclavian origin of the dominant left vertebral artery due to calcified plaque and noncalcified plaque distal to the origin of the intrathoracic segment. The cervical segments of the dominant left vertebral artery are widely patent. 7. Incidentally visualized are several prominent lymph nodes in the right paratracheal space, the anterior carinal space and adjacent the transverse aorta. I am uncertain whether these are benign reactive nodes or not. If lymphoma is a clinical consideration, CT chest may be helpful for further evaluation. N.B. : The above information has been verbally conveyed by Bud Lee MD to Zak Duff MD, on 08/29/2020 12:25:17 (ET). Electronically Signed: Bud Lee MD at 12:27 EDT , Service support ,
--- NOTE | 2020-08-29 12:38 | PCM.HP.STD ---
Problem List (1) CVA (cerebral vascular accident) Status: Acute (2) Respiratory failure Status: Acute Qualifiers: Chronicity: acute (3) Aspirated gastric contents in lower respiratory tract Status: Acute (4) Renal failure Status: Chronic Qualifiers: Renal failure chronicity: chronic Chronic kidney disease stage: on chronic dialysis Qualified Code(s): N18.6 - End stage renal disease; Z99.2 - Dependence on renal dialysis (5) Pneumonia Status: Acute Qualifiers: Pneumonia type: aspiration pneumonia (6) Anemia Status: Chronic Qualifiers: Anemia type: due to chronic kidney disease Chronic kidney disease stage: on chronic dialysis Qualified Code(s): N18.6 - End stage renal disease; D63.1 - Anemia in chronic kidney disease; Z99.2 - Dependence on renal dialysis (7) Equinus contracture of left ankle Status: Chronic (8) Hammer toe of left foot Status: Chronic (9) Diabetic neuropathy Status: Chronic Qualifiers: Diabetes mellitus type: type 2 Diabetes mellitus complication detail: diabetic polyneuropathy Qualified Code(s): E11.42 - Type 2 diabetes mellitus with diabetic polyneuropathy (10) CHF (congestive heart failure) Status: Chronic (11) Infected skin ulcer with fat layer exposed Status: Chronic (12) Leg wound, left Status: Chronic Qualifiers: Encounter type: subsequent encounter Qualified Code(s): S81.802D - Unspecified open wound, left lower leg, subsequent encounter (13) Ulcer of left foot Status: Chronic (14) Diabetic foot ulcer associated with secondary diabetes mellitus Status: Chronic (15) Swelling of lower extremity Status: Chronic (16) Hyperlipidemia Status: Chronic (17) Hypertension Status: Chronic (18) Diabetes mellitus Status: Chronic Qualifiers: Chronic kidney disease stage: on chronic dialysis (19) History of KS (myocardial infarction) Status: Chronic (20) Coronary artery arteriosclerosis Status: Chronic (21) Venous insufficiency of both lower extremities Status: Chronic (22) Edema, lower extremity Status: Chronic (23) Peripheral vascular disease Status: Chronic History of Present Illness Date of Admission: 08/29/20 Chief Complaint: Aphasia The patient is a 60 year old M with multiple comorbidities including coronary artery disease with previous CABG, diabetic nephropathy with end-stage renal disease on chronic dialysis who was sent from dialysis after patient became a phasic with left facial droop. A suspicion of stroke was entertained patient was sent to the ED as a result. Patient NIH upon arrival to the emergency department was 20. Of note patient had significant global aphasia and no effort against gravity in both upper and lower extremities. Patient was deemed not to TPA candidate given the fact that he is on Eliquis. CT was negative for acute. CT of the neck did not show any large vessel occlusion. Patient was found not to be protecting his airway was becoming apparently more lethargic resulting in patient being intubated and admitted to the intensive care unit for further management Past Medical History Past Medical History (Chronic Problems): Chronic Problems (This Medical Record has been edited. Action required.) Renal failure (Chronic) Anemia (Chronic) Equinus contracture of left ankle (Chronic) Hammer toe of left foot (Chronic) Diabetic neuropathy (Chronic) CHF (congestive heart failure) (Chronic) Infected skin ulcer with fat layer exposed (Chronic) Leg wound, left (Chronic) Ulcer of left foot (Chronic) Diabetic foot ulcer associated with secondary diabetes mellitus (Chronic) Swelling of lower extremity (Chronic) Hyperlipidemia (Chronic) Hypertension (Chronic) Diabetes mellitus (Chronic) History of KS (myocardial infarction) (Chronic) Coronary artery arteriosclerosis (Chronic) Venous insufficiency of both lower extremities (Chronic) Edema, lower extremity (Chronic) Peripheral vascular disease (Chronic) Medical History: Medical History (This Medical Record has been edited. Action required.) Heart failure I50.9 Allergies CONTRAST DYE Adverse Reaction (Uncoded 08/29/20 10:42) Other Home Medications: Ambulatory Orders Medication Instructions Recorded Aspirin [Adult Low Dose Aspirin EC] 81 mg PO DAILY 08/28/15 Insulin Aspart [Novolog Flexpen] 45 units SC TIDCM 11/14/15 Apixaban [Eliquis] 5 mg PO BID 11/03/19 Midodrine HCl 10 mg PO DAILY 11/03/19 Surgical History: coronary bypass surgery, pacemaker implantation, - Psychiatric History: Anxiety Smoking Status: Unknown if ever smoked - *Family History Maternal History Items: - - Patient's father at age of 83 with a history of heart disease and dementia. The patient's mother is alive, age 84, and healthy. Paternal History Items: Diabetes, Hypertension Review of Systems Unable to obtain accurate/complete ROS d/t: Patient intubated on the vent VTE Information - Inpt Only VTE Present on Admission: No VTE Mechan Device Prophylaxis: SCD's VTE Pharm Prophylaxis ordered?: Yes Patient Problems: Active and Suspected Problems (This Medical Record has been edited. Action required.) CVA (cerebral vascular accident) (Acute) Respiratory failure (Acute) Aspirated gastric contents in lower respiratory tract (Acute) Objective: GENERAL:on the vent HEENT: ET tube in place, NG tube with feculent materia EYES; Anicteric, NECK; supple, normal thyroid, RESPIRATORY: Diminished to auscultation CARDIOVASCULAR: Regular S1 S2, GI: soft, normoactive bowel sounds, : No Renal angle tenderness; EXTREMITIES:left foot chronic ulcer in surgical dressing MUSCULOSKELETAL: no muscle waisting NEURO: Patient on the vent SKIN: No Rash PSYCH; unable to assess - Physical Exam Vitals/I&O's: Vital Signs Temp Pulse Resp BP Pulse Ox 96.4 F L 93 16 108/64 100 08/29/20 12:09 08/29/20 12:17 08/29/20 12:17 08/29/20 12:17 08/29/20 12:17 Oxygen Flow Rate (L/min) 4 Oxygen Delivery Method Mechanical Ventilator Weight: 137.3 kg Body Mass Index (BMI) 41.0 Finger Stick Blood Glucose 160 Laboratory Results 08/29/20 10:23: WBC 8.3, RBC 3.32 L, Hgb 9.8 L, Hct 33.1 L, MCV 99.7 H, MCH 29.5, MCHC 29.6 L, RDW Std Deviation 59.1 H, RDW Coeff of Melissa 16.7 H, Plt Count 174, MPV 8.9, Immature Gran % (Auto) 0.700, Neut % (Auto) 80.4 H, Lymph % (Auto) 7.0 L, [place] % (Auto) 9.5, Eos % (Auto) 1.9, Baso % (Auto) 0.5, Absolute Neuts (auto) 6.7, Absolute Lymphs (auto) 0.58 L, Nucleated RBC % 0.2, Differential Comment SCANNED 08/29/20 10:23: PT 16.6 H, INR 1.4, APTT 37.7 H 08/29/20 10:23: Sodium 140, Potassium 3.8, Chloride 102, Carbon Dioxide 25.0, Anion Gap 13, BUN 82 H, Creatinine 7.64 H*, Estim Creat Clear Calc 11.00, Est GFR (MDRD) Af Amer 9 L, Est GFR (MDRD) Non-Af 8 L, BUN/Creatinine Ratio 10.7, Glucose 114 H, Calcium 7.8 L, Troponin I 0.020 Current Medications Propofol (Diprivan) 1,000 mg in 100 mls @ 8.238 mls/hr CONT INF .Q12H [facility]; Protocol Last Admin: 08/29/20 11:26 Dose: 20 mcg/kg/min, 16.5 mls/hr Documented by: Labetalol HCl (Trandate) 20 mg IV X1 PRN PRN Reason: BLOOD PRESSURE Assessment/Plan All Active Problems (This Medical Record has been edited. Action required.) Ulcer of left lower extremity with fat layer exposed (Resolved) Ulcer of right lower extremity with fat layer exposed (Resolved) Decubitus ulcer of coccyx, stage 2 (Resolved) CVA (cerebral vascular accident) (Acute) Respiratory failure (Acute) Aspirated gastric contents in lower respiratory tract (Acute) Septic shock (Resolved) Hyperkalemia (Resolved) Pneumonia (Acute) Urinary tract infection (Resolved) Shock liver (Resolved) Chronic ulcer of left foot with fat layer exposed (Resolved) Ulcer of left foot (Resolved) Diabetic foot infection (Resolved) Patient is a 60-year-old gentleman with multiple medical comorbidities including end-stage renal disease on hemodialysis who was brought to the emergency department on suspicion of an acute CVA. His NIH was 20 on admission patient was however not deemed to be a TPA candidate since he is on Eliquis 1. Suspected acute CVA ?Ischemic. Admitted to the intensive care unit. Patient started on antiplatelet therapy with aspirin per rectum. Patient did not receive TPA since patient is on Eliquis. As part of his management 2D echo was ordered and consultation placed to neurology 2. Acute hypoxic respiratory failure ?Secondary to above. Patient was intubated in the ED to protect his airway. Consult placed to pulmonary medicine for vent management 3. Suspected aspiration pneumonitis ?Patient NG tube returned feculent material patient started on Zosyn 4. Coronary artery disease ?Previous CABG 5. Ischemic cardiomyopathy -status post AICD/pacemaker placement . Diabetes mellitus type 2 ?With complications including diabetic polyneuropathy, diabetic nephropathy resulting in end-stage renal disease. Home regimen held in view of patient being on the vent please on Accu-Cheks 6 with sliding scale coverage 7. End-stage renal disease ?Secondary to diabetic nephropathy. Patient is on hemodialysis on Tuesdays and Saturdays consult placed to nephrology for dialysis orders 8. Hypothyroidism ?On levothyroxine 9. Systemic use of anticoagulation ?Reason not clear. Patient Tosha quionnes given his presentation 10. Chronic left lower extremity wound ?Consult placed to care nurse 11. Anemia - Secondary to chronic disorder?anemia of end-stage renal disease monitoring H&H and transfuse if patient becomes symptomatic or hemoglobin falls below 7 12. DVT prophylaxis ?SC heparin bilateral SCDs Advance planning; did discuss with the patient family (his son who is a POA) regarding advanced directives as well as CODE STATUS. Did explain the various scenarios involved ( FULL CODE, DNR CCA, DNR CCA with no intubation, and DNR CC and what each meant) patient's POA indicated patient's wishes to remain full code with CPR and intubation if warranted order was placed. Time spent on discussion 18 minutes. Inpatient E&M: 58817 Init Hosp L3 Procedures: 83419 Advncd Care Plan 30 Min
[2020-08-29] MEDS: NSY 0.9% NS BOLUS 250 ML IV (13:29)
--- NOTE | 2020-08-29 13:47 | ECHOCS_ITS ---
Reason For Study: TIA/CVA Procedure This was a 2D Doppler, Color Flow transthoracic echocardiogram. The study was technically difficult. Contrast injection was performed. Exam performed portable in ICU/CCU. Left Ventricle Normal LV size. The estimated ejection fraction is 50 %. Unable to assess diastolic dysfunction. [place] : Hypokinetic. Right Ventricle Normal RV size. Normal systolic function. Atria Normal left atrium. Normal right atrium. Normal atrial septum. Mitral Valve There is moderate to severe mitral annular calcification. There is no mitral valve stenosis. Trivial mitral valve insufficiency. Tricuspid Valve There is no tricuspid stenosis. Trivial tricuspid valve insufficiency. Unable to estimate RV systolic pressure due to insufficient tricuspid regurgitant envelope. Aortic Valve Aortic sclerosis, no stenosis. There is no aortic stenosis. No aortic valve insufficiency. Pulmonic Valve There is no pulmonic valvular stenosis. No pulmonic valve insufficiency. Great Vessels Normal aortic root. Pericardium/Pleural No pericardial effusion. Medication Diluted definity 3ml given slow IV push to enhance endocardial definition. Performed a rapid injection of agitated mix of 9 cc saline and 1cc air to assess for atrial septal defect. MMode/2D Measurements & Calculations LVIDd: 5.8 cm IVSd: 1.4 cm LA dimension: 5.3 cm LVIDs: 3.6 cm LVPWd: 1.0 cm FS: 37.6 % LAV(MOD-sp4): 109.3 ml LA A4 area: 31.7 cm2 RA A4 area: 18.5 cm2 Time Measurements MV dec time: 0.18 sec Doppler Measurements & Calculations MV E max douglas: 157.0 cm/sec MV V2 max: 173.8 cm/sec MV P1/2t max douglas: 175.5 cm/sec MV A max douglas: 80.9 cm/sec MV max P.1 mmHg MV P1/2t: 46.0 msec MV E/A: 1.9 MV V2 mean: 85.3 cm/sec MV dec slope: 1118 cm/sec2 MV mean P.6 mmHg MV V2 VTI: 39.4 cm MVA(P1/2t): 4.8 cm2 Ao V2 max: 153.2 cm/sec LV V1 max: 129.1 cm/sec MR max douglas: 522.0 cm/sec Ao max P.4 mmHg LV V1 max P.8 mmHg MR max P.0 mmHg MR mean douglas: 430.0 cm/sec MR mean P.8 mmHg MR VTI: 189.7 cm PA V2 max: 93.2 cm/sec TR max douglas: 352.2 cm/sec TR max P.6 mmHg Interpretation Summary The estimated ejection fraction is 50 %. Unable to assess diastolic dysfunction. [place] : Hypokinetic. Trivial mitral valve insufficiency. Ordering Physician: Wilian Osman Referring Physician: Nati Langston Performed By: Camron Galarza RCS
[2020-08-29 13:54] LABS: Blood Gas Specimen Type ART; FI02 40; Mode A-C; O2 Delivery Device Vent; PEEP 5; RR 12; SITE R BRACHIAL; Vt 550
[2020-08-29 13:55] LABS: Base Excess -3 mmol/L (-2 to +2); Bicarbonate 24.3 mmol/L (22-26); PO2 57 mmHG (75-100); SO2 83 % (95-99); Total Carbon Dioxide 26 mmol/L; pCO2 57.2 mmHg (35-45); pH 7.24 (7.35-7.45)
[2020-08-29] MEDS: Lactated Ringers 1,000 ML 999 ML IV (14:00)
--- NOTE | 2020-08-29 14:01 | CON.PCM_ITS ---
Reason for Consult Date of Consultation: 08/29/20 Reason for Consultation: Acute respiratory failure History of Present Illness: The patient is a 60-year-old male, with a history as outlined below, who presented to the emergency department on August 29 from his hemodialysis center after the patient developed a left facial droop and became aphasic. History pertinent to the patient's hospitalization was obtained primarily via chart review, as the patient is currently intubated and there is no family available at the bedside. The patient was at the dialysis center and was apparently long term through his treatment session when he developed the aforementioned symptoms. It is unclear to me as to what his hemodynamic status was at that time. The patient does have a history of end-stage renal disease on hemodialysis, anemia and chronic systolic heart failure. On presentation to the emergency department, the patient was noted to be afebrile and hemodynamically stable. Laboratory evaluation revealed evidence of normocytic anemia without an elevated white blood cell count. Chemistry profile was notable for a creatinine of 7.64. Troponin was negative. MRSA screen was positive. Initial stat CT head was unremarkable. CTA head neck revealed 60% stenosis of the right internal carotid artery with no significant vaso-occlusive disease of the anterior and posterior intracranial circulation. In the emergency department, the patient was intubated over concerns for his ability to protect his airway. The patient was given a small amount of supplemental IV fluid and placed on antimicrobials. He was then admitted to the medical intensive care unit for further management. Past Medical History Past Medical History (Chronic Problems): Chronic Problems (This Medical Record has been edited. Action required.) Renal failure (Chronic) Anemia (Chronic) Equinus contracture of left ankle (Chronic) Hammer toe of left foot (Chronic) Diabetic neuropathy (Chronic) CHF (congestive heart failure) (Chronic) Infected skin ulcer with fat layer exposed (Chronic) Leg wound, left (Chronic) Ulcer of left foot (Chronic) Diabetic foot ulcer associated with secondary diabetes mellitus (Chronic) Swelling of lower extremity (Chronic) Hyperlipidemia (Chronic) Hypertension (Chronic) Diabetes mellitus (Chronic) History of [place] (myocardial infarction) (Chronic) Coronary artery arteriosclerosis (Chronic) Venous insufficiency of both lower extremities (Chronic) Edema, lower extremity (Chronic) Peripheral vascular disease (Chronic) Medical History: Medical History (This Medical Record has been edited. Action required.) Heart failure I50.9 Allergies CONTRAST DYE Adverse Reaction (Uncoded 08/29/20 10:42) Other Home Medications: Ambulatory Orders Medication Instructions Recorded Aspirin [Adult Low Dose Aspirin EC] 81 mg PO DAILY 08/28/15 Insulin Aspart [Novolog Flexpen] 45 units SC TIDCM 11/14/15 Apixaban [Eliquis] 5 mg PO BID 11/03/19 Midodrine HCl 10 mg PO DAILY 11/03/19 ALPRAZolam [Xanax] 0.25 mg PO TID 08/29/20 Atorvastatin Calcium [Lipitor] 40 mg PO QHS 08/29/20 Carvedilol 3.125 mg PO BID 08/29/20 Gabapentin [Neurontin] 300 mg PO BID 08/29/20 Ketorolac Tromethamine/Pf [Acuvail 1 drop EACH EYE TID 08/29/20 0.45% Ophth Solution] Levothyroxine [Synthroid] 25 mcg PO DAILY 08/29/20 Prednisolone Acetate/Pf 1 drop EACH EYE TID 08/29/20 [Prednisolone Acet 1% Eye Drop] Propylene Glycol/Peg 400 [Systane 1 drop EACH EYE TID 08/29/20 Gel Eye Drops] Surgical History: coronary bypass surgery, pacemaker implantation, - Psychiatric History: Anxiety Smoking Status: Unknown if ever smoked - *Family History Maternal History Items: - - Patient's father at age of 83 with a history of heart disease and dementia. The patient's mother is alive, age 84, and healthy. Paternal History Items: Diabetes, Hypertension Review of Systems Unable to obtain accurate/complete ROS d/t: Due to current intubation and mechanical ventilation status Patient Problems: Active and Suspected Problems (This Medical Record has been edited. Action required.) CVA (cerebral vascular accident) (Acute) Respiratory failure (Acute) Aspirated gastric contents in lower respiratory tract (Acute) Objective: The patient's most recent lab work, culture data and imaging studies have all been personally reviewed. - Physical Exam Vitals/I&O's: Vital Signs Temp Pulse Resp BP Pulse Ox 96.6 F L 72 15 81/56 L 100 08/29/20 12:46 08/29/20 13:17 08/29/20 13:17 08/29/20 13:17 08/29/20 13:17 Oxygen Flow Rate (L/min) 4 Oxygen Delivery Method Mechanical Ventilator Weight: 302 lb 11.115 oz Body Mass Index (BMI) 41.0 Finger Stick Blood Glucose 160 Intake and Output for Last 24 Hours 08/27/20 08/28/20 08/29/20 23:59 23:59 23:59 Intake Total 33.55 / 33.55 Balance 33.55 / 33.55 General: - - Intubated and mechanically ventilated. Appears restless and agitated. HEENT: Atraumatic, Normocephalic Oral: No Gingival or Mucosal Lesions/ Ulcerations, - - Endotracheal and OG tubes in place Neck: Supple, No Nodes, Trachea Midline Lungs: No rhonchi, No wheeze, Diminished, Tachypneic Cardiovascular: Regular rate, Regular Rhythm Abdomen: Bowel Sounds Present, Soft, Non Tender, Obese Extremities: No clubbing, No cyanosis, Diminished Peripheral Pulses, - Skin: - - Right pretibial erythema. Wrapped lower extremities. Chronic lower extremity venous stasis. Musculoskeletal: No Muscle Wasting Lymphatic: No Cervical, Supraclavicular, or Inguinal Adenopathy Neurological: - - No focal deficits. The patient is moving all extremities spontaneously. Psych/Mental Status: Restless Labs (Last 48 Hours) 08/29/20 08/29/20 08/29/20 10:23 10:23 10:23 WBC 8.3 RBC 3.32 L Hgb 9.8 L Hct 33.1 L MCV 99.7 H MCH 29.5 MCHC 29.6 L RDW Std Deviation 59.1 H RDW Coeff of Melissa 16.7 H Plt Count 174 MPV 8.9 Immature Gran % (Auto) 0.700 Neut % (Auto) 80.4 H Lymph % (Auto) 7.0 L [place] % (Auto) 9.5 Eos % (Auto) 1.9 Baso % (Auto) 0.5 Absolute Neuts (auto) 6.7 Absolute Lymphs (auto) 0.58 L Nucleated RBC % 0.2 Differential Comment SCANNED PT 16.6 H INR 1.4 APTT 37.7 H Specimen Type Sample Site pH Bicarbonate Actual Total CO2 Base Excess O2 Saturation O2 % ABG pCO2 ABG pO2 Respiration Rate O2 Delivery Device Vent Mode Tidal Volume POC PEEP Blood Gas Notified Whom Sodium 140 Potassium 3.8 Chloride 102 Carbon Dioxide 25.0 Anion Gap 13 BUN 82 H Creatinine 7.64 H* Estim Creat Clear Calc 11.00 Est GFR (MDRD) Af Amer 9 L Est GFR (MDRD) Non-Af 8 L BUN/Creatinine Ratio 10.7 Glucose 114 H Calcium 7.8 L Troponin I 0.020 08/29/20 13:20 WBC RBC Hgb Hct MCV MCH MCHC RDW Std Deviation RDW Coeff of Melissa Plt Count MPV Immature Gran % (Auto) Neut % (Auto) Lymph % (Auto) [place] % (Auto) Eos % (Auto) Baso % (Auto) Absolute Neuts (auto) Absolute Lymphs (auto) Nucleated RBC % Differential Comment PT INR APTT Specimen Type ART Sample Site R BRACHIAL pH 7.24 L Bicarbonate Actual 24.3 Total CO2 26 Base Excess -3 L O2 Saturation 83 L O2 % 40 ABG pCO2 57.2 H ABG pO2 57 L Respiration Rate 12 O2 Delivery Device Vent Vent Mode A-C Tidal Volume 550 POC PEEP 5 Blood Gas Notified Whom ED Sodium Potassium Chloride Carbon Dioxide Anion Gap BUN Creatinine Estim Creat Clear Calc Est GFR (MDRD) Af Amer Est GFR (MDRD) Non-Af BUN/Creatinine Ratio Glucose Calcium Troponin I Clinical Impression(s) from Imaging Studies Brain CT 08/29/20 10:25 IMPRESSION: 1. Normal unenhanced CT scan of the brain at this time. 2. Total ASPECTS score: 08/31. N.B. : The above information has been verbally conveyed by Bud Lee MD to Dr. Sherin MD, on 08/29/2020 10:39:09 (ET). Electronically Signed: Bud Lee MD at 10:39 EDT , Service support , ADDENDUM: 08/29/20 1046 IMPRESSION: 1. Normal unenhanced CT scan of the brain at this time. 2. Total ASPECTS score: 08/31. N.B. : The above information has been verbally conveyed by Bud Lee MD to Dr. Sherin MD, on 08/29/2020 10:39:09 (ET). Electronically Signed: Bud Lee MD at 10:39 EDT , Service support , Chest X-Ray 08/29/20 11:20 IMPRESSION: 1. Improving subsegmental atelectases in both lungs. 2. No acute cardiopulmonary pathology. 3. No significant interval change when compared to 11/03/2019. Electronically Signed: Bud Lee MD at 12:01 EDT , Service support , Head/Neck CTA 08/29/20 11:50 IMPRESSION: 1. No significant vaso-occlusive disease of the anterior and posterior intracranial circulation. 2. 60% stenosis of the right internal carotid artery bulb origin due to calcified plaques. The remainder of the right cervical internal carotid artery is widely patent. 3. Widely patent bilateral common carotid arteries. 4. Widely patent vertebral arteries, left is dominant. 5. Widely patent aortic arch and origins of the great vessels. 6. No more than 50% stenosis at the subclavian origin of the dominant left vertebral artery due to calcified plaque and noncalcified plaque distal to the origin of the intrathoracic segment. The cervical segments of the dominant left vertebral artery are widely patent. 7. Incidentally visualized are several prominent lymph nodes in the right paratracheal space, the anterior carinal space and adjacent the transverse aorta. I am uncertain whether these are benign reactive nodes or not. If lymphoma is a clinical consideration, CT chest may be helpful for further evaluation. N.B. : The above information has been verbally conveyed by Bud Lee MD to Zak Duff MD, on 08/29/2020 12:25:17 (ET). Electronically Signed: Bud Lee MD at 12:27 EDT , Service support , ADDENDUM: 08/29/20 1234 IMPRESSION: 1. No significant vaso-occlusive disease of the anterior and posterior intracranial circulation. 2. 60% stenosis of the right internal carotid artery bulb origin due to calcified plaques. The remainder of the right cervical internal carotid artery is widely patent. 3. Widely patent bilateral common carotid arteries. 4. Widely patent vertebral arteries, left is dominant. 5. Widely patent aortic arch and origins of the great vessels. 6. No more than 50% stenosis at the subclavian origin of the dominant left vertebral artery due to calcified plaque and noncalcified plaque distal to the origin of the intrathoracic segment. The cervical segments of the dominant left vertebral artery are widely patent. 7. Incidentally visualized are several prominent lymph nodes in the right paratracheal space, the anterior carinal space and adjacent the transverse aorta. I am uncertain whether these are benign reactive nodes or not. If lymphoma is a clinical consideration, CT chest may be helpful for further evaluation. N.B. : The above information has been verbally conveyed by Bud Lee MD to Zak Duff MD, on 08/29/2020 12:25:17 (ET). Electronically Signed: Bud Lee MD at 12:27 EDT , Service support , Current Medications Acetaminophen (Tylenol) 650 mg RECTAL Q4H PRN PRN PRN Reason: Pain Score 1-10/Temp > 100.7 F Albuterol Sulfate (Ventolin Aerosols) 2.5 mg INHALATION Q2H PRN PRN PRN Reason: SOB/Wheezing Aspirin (Aspirin) 300 mg RECTAL DAILY PAKO Chlorhexidine Gluconate () 15 ml PO BID PAKO Dextrose (D50w Syringe) 0 gm IV X1 PRN; Protocol PRN Reason: Hypoglycemia Glucagon () 1 mg IM .X1 PRN PRN Reason: Hypoglycemia Heparin Sodium (Porcine) (Heparin Na) 5,000 unit SC Q8 PAKO Hydralazine HCl (Apresoline Iv) 5 mg IV Q30M PRN PRN Reason: to maintain BP goals Propofol (Diprivan) 1,000 mg in 100 mls @ 8.238 mls/hr CONT INF .Q12H PAKO; Protocol Last Titration: 08/29/20 13:28 Dose: 15 mcg/kg/min, 12.4 mls/hr Documented by: Famotidine 20 mg/ Sodium (Chloride) 10 mls @ 300 mls/hr IV Q12 PAKO Piperacillin Sod/Tazobactam (Sod 3.375 gm/ Sodium Chloride) 50 mls @ 100 mls/hr IV X1 THEN RX TO DOSE ONE Stop: 08/29/20 14:16 Piperacillin Sod/Tazobactam (Sod 3.375 gm/ Sodium Chloride) 50 mls @ 12.5 mls/hr IV Q12 PAKO Piperacillin Sod/Tazobactam (Sod 3.375 gm/ Sodium Chloride) 50 mls @ 100 mls/hr IV X1 ONE Stop: 08/29/20 14:29 Dexmedetomidine HCl 400 mcg/ (Sodium Chloride) 100 mls @ 17.163 mls/hr CONT INF .Q5H50M PAKO; Protocol Lactated Ringer's () 1,000 mls @ 999 mls/hr IV .Q1H1M PAKO Stop: 08/29/20 15:00 Fentanyl Citrate 1,000 mcg/ (Sodium Chloride) 100 mls @ 5 mls/hr CONT INF .Q20H PAKO; Protocol Insulin Human Lispro (Humalog Kwikpen (Bkc)) 0 unit SC Q6 PAKO; Protocol Labetalol HCl (Trandate) 20 mg IV X1 PRN PRN Reason: BLOOD PRESSURE Labetalol HCl (Trandate) 10 - 20 mg IV Q10M PRN PRN PRN Reason: to Maintain BP Goals Ondansetron HCl (Zofran) 4 mg IV Q8H PRN PRN PRN Reason: NAUSEA/VOMITING Assessment/Plan Active and Suspected Problems (This Medical Record has been edited. Action required.) CVA (cerebral vascular accident) (Acute) Respiratory failure (Acute) Aspirated gastric contents in lower respiratory tract (Acute) RECOMMENDATIONS: 1. Start Precedex and fentanyl for sedation, given hemodynamic instability produced from propofol. 2. Wean FiO2 to maintain oxygen saturations at or above 90%. 3. Obtain sputum culture. 4. Continue empiric antimicrobials. 5. Consider additional head imaging tomorrow morning. 6. Allow for permissive hypertension for now. 7. Start appropriate ICU prophylaxis. IMPRESSIONS: 1. Acute respiratory failure The patient was initially intubated in the emergency department over concerns for airway protection in the setting of suspected CVA. There is also some concern about potential aspiration. Despite this, no significant consolidation or airspace opacity was noted on chest x-ray. For now, I agree with continuing empiric antimicrobials for the next 24 to 48 hours, while awaiting infectious work-up. Wean FiO2 to maintain oxygen saturations at or above 90%. Precedex and fentanyl will be utilized for sedation. Plan for paired spontaneous awakening and breathing trial beginning tomorrow morning. 2. Encephalopathy with concern for acute CVA Plan to minimize sedation overnight as able. Goal to maintain a RASS of -1 to 1. It is unclear what the patient's blood pressures were like during his dialysis session. It is possible that if the patient became hemodynamically unstable during dialysis, that his cerebral perfusion pressures may have been impacted as a consequence leading to his mental status changes. Permissive hypertension will be employed overnight, should his presentation represent the manifestations of an acute stroke. Further head imaging can be considered tomorrow morning as well. 3. History of coronary artery disease/congestive heart failure/ischemic cardiomyopathy status post ICD/pacemaker Continue baseline cardiac medications, with the exception of antihypertensives. 4. End-stage renal disease on hemodialysis Obtain nephrology consultation to assist with ongoing hemodialysis needs. 5. Anxiety/hyperlipidemia/neuropathy/hypothyroidism/obesity Complicates care, management, recovery and prognosis. Continue home medications as indicated. Physical therapy to evaluate the patient tomorrow. TIME: 37 minutes of critical care time, independent of procedures, was spent addressing the patient's acute respiratory failure, encephalopathy with concern for CVA, coronary artery disease, congestive heart failure, end-stage renal disease on hemodialysis, review of all data and collaboration with the care team. [id number]) [phone]: [id number] Critical care first hour
[2020-08-29 17:15] LABS: Probe Check PASS
[2020-08-29 17:16] LABS: M R Staph aureus DNA By PCR POSITIVE (Negative)
[2020-08-29 18:11] LABS: Bedside Glucose 167 mg/dL (70-110)
--- NOTE | 2020-08-29 19:46 | NURSING ---
Call received from juanita Lopez. Verified eye drops and frequency with son. Update given.
[2020-08-29] MEDS: Famotidine 200 MG/20 ML MDV 20 MG in 0.9% Normal Saline (Pres. free 8 ML 300 MG IV (21:11)
[2020-08-29] MEDS: 0.9% Saline Lock 10 ML Syringe IV (21:12)
[2020-08-29] MEDS: Chlorhexidine 15 ML PO (21:15)
[2020-08-29] MEDS: APIXABAN 5 MG TABLET PO (21:53)
[2020-08-29] MEDS: Atorvastatin Calcium 80 MG Tablet PO (21:53)
[2020-08-29] MEDS: prednisoLONE eye drops (5 mL) 1 DROP OPTH.BTL 1 DRP EACH EYE (21:54)
[2020-08-29] MEDS: Glycerin/Hypromellose/PEG400 15 ml Bottle 1 DRP EACH EYE (21:54)
[2020-08-29] MEDS: KETOROLAC TROMETHAMINE 5 ML DROPS 1 ML EACH EYE (22:26)
[2020-08-29 23:05] LABS: Bedside Glucose 211 mg/dL (70-110)
[2020-08-29] MEDS: Insulin Lispro 100 UNIT/ML INSULN.PEN SC (23:06)
[2020-08-30] VITALS (28 sets, daily range): BP systolic 93–118; BP diastolic 50–75; PULSE 69–84; RESP 12–27; TEMP 36.4–37.2; O2SAT 92–100; BMI 41.0
[2020-08-30] MEDS: 0.9% Normal Saline 1,000 ML 750 ML IV (03:21)
[2020-08-30] MEDS: TITRATION PARAMETER CHANGE 1 EACH IV (05:07)
[2020-08-30] MEDS: Insulin Lispro 100 UNIT/ML INSULN.PEN SC ×4 (05:07→22:49)
[2020-08-30 05:10] LABS: Bedside Glucose 249 mg/dL (70-110)
[2020-08-30 05:14] LABS: Absolute Lymphocyte Count 0.35 X10^3/uL (0.83-4.51); Absolute Neutrophil Count 4.1 X10^3/uL (2.0-7.7); Basophil# 0.01 X10^3/uL; Basophil% 0.2 % (0-1); Hematocrit 32.1 % (40-54); Hemoglobin 9.6 g/dL (13.0-16.5); Lymphocyte # 0.35 X10^3/ul (4.0); Lymphocyte % 7.4 % (19-41); Mean Corp Hgb Conc 29.9 g/dL (32-36); Mean Corpuscular Hgb 29.7 pg (27.0-32.0); Mean Corpuscular Volume 99.4 fL (80-94); Mean Platelet Vol. 9.2 fl (6.2-12.0); Monocyte# 0.29 X10^3/uL; Monocyte% 6.1 % (0-10); NRBC Flagged by Analyzer 0.4 % (0-5); Neutrophil # 4.08 X10^3/uL (2.7-7.7); Neutrophil % 85.7 % (47-70); POSITIVE DIFFERENTIAL YES; Platelet Count 144 K/mm3 (150-450); RBC Distribution Width CV 16.6 % (11.6-14.6); RBC Distribution Width SD 58.6 fl (35.1-43.9); Red Blood Count 3.23 M/mm3 (4.6-6.2); White Blood Count 4.8 K/mm3 (4.4-11.0)
[2020-08-30 05:16] LABS: Differential Indicated SCAN CRITERIA MET
[2020-08-30] MEDS: Glycerin/Hypromellose/PEG400 15 ml Bottle 1 DRP EACH EYE ×3 (05:24→21:35)
[2020-08-30] MEDS: prednisoLONE eye drops (5 mL) 1 DROP OPTH.BTL 1 DRP EACH EYE ×3 (05:24→21:36)
[2020-08-30] MEDS: KETOROLAC TROMETHAMINE 5 ML DROPS 1 ML EACH EYE ×3 (05:25→21:36)
[2020-08-30] MEDS: Ondansetron 4 MG/2 ML Vial IV (05:30)
[2020-08-30] MEDS: 0.9% Saline Lock 10 ML Syringe IV (05:31)
[2020-08-30 06:00] LABS: Anion Gap 18 (5-15); BUN 106 mg/dL (7-18); BUN/Creat Ratio 12.3 RATIO (10-20); Calcium,Total 6.8 mg/dL (8.5-10.1); Chloride 103 mmol/L (98-107); Cholesterol 67 mg/dL (200); Creatinine, Serum 8.64 mg/dL (0.70-1.30); EST Glomerular Filtration Rate 7 mL/min (>60); Est Glom Filt Rate - Afr Amer 8 mL/min (>60); Estimated Creatinine Clearance 9.73 ml/min; Glucose 250 mg/dL (74-106); High Density Lipoprotein 34 mg/dL; Phosphorus 10.9 mg/dL (2.5-4.9); Potassium 5.9 mmol/L (3.5-5.1); Sodium Level 140 mmol/L (136-145); Thyroid Stim Hormone (TSH) 1.57 uIU/mL (0.358-3.74); Triglycerides 67 mg/dL; Very Low Density Lipoprotein 13 mg/dL (5-40)
[2020-08-30 06:04] LABS: Differential Comment SCANNED
--- NOTE | 2020-08-30 06:11 | PCM.PN.INT ---
Subjective: The patient was seen and examined at the bedside this morning. Events from the last 24 hours have been reviewed. The patient is currently afebrile, hemodynamically stable and maintaining appropriate oxygen saturations on spontaneous mode mechanical ventilation with an FiO2 requirement of 30%. No overnight issues were identified by the nursing staff. The patient is alert and following commands appropriately. Objective: The patient's most recent lab work, culture data and imaging studies have all been personally reviewed. Sputum culture is currently pending. General: - - Remains intubated and mechanically ventilated. Currently tolerating spontaneous mode of mechanical ventilation. HEENT: Atraumatic, PERRLA, Normocephalic Oral: No Gingival or Mucosal Lesions/ Ulcerations, - - Endotracheal and OG tubes currently in place. Neck: Supple, No Nodes, Trachea Midline Lungs: No rhonchi, No wheeze, No rales, Diminished Cardiovascular: Regular rate, Regular Rhythm Abdomen: Bowel Sounds Present, Soft, Non Tender, Obese Extremities: No clubbing, No cyanosis Skin: - - No significant change from previous Musculoskeletal: No Muscle Wasting Lymphatic: No Cervical, Supraclavicular, or Inguinal Adenopathy Neurological: - - No focal neurological deficits. The patient is moving all extremities spontaneously. He is alert and following commands appropriately. Vital Signs Temp Pulse Resp BP Pulse Ox 98.8 F 72 14 103/54 L 98 08/30/20 04:00 08/30/20 04:00 08/30/20 04:00 08/30/20 04:00 08/30/20 04:00 Oxygen Flow Rate (L/min) 4 Oxygen Delivery Method Mechanical Ventilator Weight: 294 lb 8.601 oz Body Mass Index (BMI) 41.0 Finger Stick Blood Glucose 160 Intake and Output for Last 24 Hours 08/28/20 08/29/20 08/30/20 23:59 23:59 23:59 Intake Total 1481.19 / 1508.72 1258.50 / 1258.50 Output Total 655 / 655 125 / 125 Balance 826.19 / 853.72 1133.50 / 1133.50 Labs (Last 48 Hours) 08/29/20 08/29/20 08/29/20 10:23 10:23 10:23 WBC 8.3 RBC 3.32 L Hgb 9.8 L Hct 33.1 L MCV 99.7 H MCH 29.5 MCHC 29.6 L RDW Std Deviation 59.1 H RDW Coeff of Melissa 16.7 H Plt Count 174 MPV 8.9 Immature Gran % (Auto) 0.700 Neut % (Auto) 80.4 H Lymph % (Auto) 7.0 L [place] % (Auto) 9.5 Eos % (Auto) 1.9 Baso % (Auto) 0.5 Absolute Neuts (auto) 6.7 Absolute Lymphs (auto) 0.58 L Nucleated RBC % 0.2 Differential Comment SCANNED PT 16.6 H INR 1.4 APTT 37.7 H Specimen Type Sample Site pH Bicarbonate Actual Total CO2 Base Excess O2 Saturation O2 % ABG pCO2 ABG pO2 Respiration Rate O2 Delivery Device Vent Mode Tidal Volume POC PEEP Blood Gas Notified Whom Sodium 140 Potassium 3.8 Chloride 102 Carbon Dioxide 25.0 Anion Gap 13 BUN 82 H Creatinine 7.64 H* Estim Creat Clear Calc 11.00 Est GFR (MDRD) Af Amer 9 L Est GFR (MDRD) Non-Af 8 L BUN/Creatinine Ratio 10.7 Glucose 114 H Calcium 7.8 L Phosphorus Troponin I 0.020 Triglycerides Cholesterol LDL Cholesterol VLDL Cholesterol HDL Cholesterol TSH MRSA (PCR) POC Glucose 08/29/20 08/29/20 08/29/20 13:20 13:50 14:20 WBC RBC Hgb Hct MCV MCH MCHC RDW Std Deviation RDW Coeff of Melissa Plt Count MPV Immature Gran % (Auto) Neut % (Auto) Lymph % (Auto) [place] % (Auto) Eos % (Auto) Baso % (Auto) Absolute Neuts (auto) Absolute Lymphs (auto) Nucleated RBC % Differential Comment PT INR APTT Specimen Type ART Sample Site R BRACHIAL pH 7.24 L Bicarbonate Actual 24.3 Total CO2 26 Base Excess -3 L O2 Saturation 83 L O2 % 40 ABG pCO2 57.2 H ABG pO2 57 L Respiration Rate 12 O2 Delivery Device Vent Vent Mode A-C Tidal Volume 550 POC PEEP 5 Blood Gas Notified Whom ED MD Sodium Potassium Chloride Carbon Dioxide Anion Gap BUN Creatinine Estim Creat Clear Calc Est GFR (MDRD) Af Amer Est GFR (MDRD) Non-Af BUN/Creatinine Ratio Glucose Calcium Phosphorus Troponin I < 0.015 Triglycerides Cholesterol LDL Cholesterol VLDL Cholesterol HDL Cholesterol TSH MRSA (PCR) POSITIVE H POC Glucose 08/29/20 08/29/20 08/29/20 18:08 18:50 23:01 WBC RBC Hgb Hct MCV MCH MCHC RDW Std Deviation RDW Coeff of Melissa Plt Count MPV Immature Gran % (Auto) Neut % (Auto) Lymph % (Auto) [place] % (Auto) Eos % (Auto) Baso % (Auto) Absolute Neuts (auto) Absolute Lymphs (auto) Nucleated RBC % Differential Comment PT INR APTT Specimen Type Sample Site pH Bicarbonate Actual Total CO2 Base Excess O2 Saturation O2 % ABG pCO2 ABG pO2 Respiration Rate O2 Delivery Device Vent Mode Tidal Volume POC PEEP Blood Gas Notified Whom Sodium Potassium Chloride Carbon Dioxide Anion Gap BUN Creatinine Estim Creat Clear Calc Est GFR (MDRD) Af Amer Est GFR (MDRD) Non-Af BUN/Creatinine Ratio Glucose Calcium Phosphorus Troponin I < 0.015 Triglycerides Cholesterol LDL Cholesterol VLDL Cholesterol HDL Cholesterol TSH MRSA (PCR) POC Glucose 167 H 211 H 08/30/20 08/30/20 08/30/20 05:02 05:05 05:05 WBC 4.8 RBC 3.23 L Hgb 9.6 L Hct 32.1 L MCV 99.4 H MCH 29.7 MCHC 29.9 L RDW Std Deviation 58.6 H RDW Coeff of Melissa 16.6 H Plt Count 144 L MPV 9.2 Immature Gran % (Auto) 0.600 Neut % (Auto) 85.7 H Lymph % (Auto) 7.4 L [place] % (Auto) 6.1 Eos % (Auto) 0.0 Baso % (Auto) 0.2 Absolute Neuts (auto) 4.1 Absolute Lymphs (auto) 0.35 L Nucleated RBC % 0.4 Differential Comment SCANNED PT INR APTT Specimen Type Sample Site pH Bicarbonate Actual Total CO2 Base Excess O2 Saturation O2 % ABG pCO2 ABG pO2 Respiration Rate O2 Delivery Device Vent Mode Tidal Volume POC PEEP Blood Gas Notified Whom Sodium 140 Potassium 5.9 H Chloride 103 Carbon Dioxide 19.0 L Anion Gap 18 H BUN 106 H* Creatinine 8.64 H* Estim Creat Clear Calc 9.73 Est GFR (MDRD) Af Amer 8 L Est GFR (MDRD) Non-Af 7 L BUN/Creatinine Ratio 12.3 Glucose 250 H Calcium 6.8 L Phosphorus 10.9 H* Troponin I Triglycerides 67 Cholesterol 67 LDL Cholesterol 20 VLDL Cholesterol 13 HDL Cholesterol 34 L TSH 1.57 MRSA (PCR) POC Glucose 249 H Clinical Impression(s) from Imaging Studies Brain CT 08/29/20 10:25 IMPRESSION: 1. Normal unenhanced CT scan of the brain at this time. 2. Total ASPECTS score: 10. N.B. : The above information has been verbally conveyed by Bud Lee MD to Dr. Sherin MD, on 08/29/2020 10:39:09 (ET). Electronically Signed: Bud Lee MD at 10:39 EDT , Service support , ADDENDUM: 08/29/20 1046 IMPRESSION: 1. Normal unenhanced CT scan of the brain at this time. 2. Total ASPECTS score: 08/31. N.B. : The above information has been verbally conveyed by Bud Lee MD to Dr. Sherin MD, on 08/29/2020 10:39:09 (ET). Electronically Signed: Bud Lee MD at 10:39 EDT , Service support , Chest X-Ray 08/29/20 11:20 IMPRESSION: 1. Improving subsegmental atelectases in both lungs. 2. No acute cardiopulmonary pathology. 3. No significant interval change when compared to 11/03/2019. Electronically Signed: uBd Lee MD at 12:01 EDT , Service support , Head/Neck CTA 08/29/20 11:50 IMPRESSION: 1. No significant vaso-occlusive disease of the anterior and posterior intracranial circulation. 2. 60% stenosis of the right internal carotid artery bulb origin due to calcified plaques. The remainder of the right cervical internal carotid artery is widely patent. 3. Widely patent bilateral common carotid arteries. 4. Widely patent vertebral arteries, left is dominant. 5. Widely patent aortic arch and origins of the great vessels. 6. No more than 50% stenosis at the subclavian origin of the dominant left vertebral artery due to calcified plaque and noncalcified plaque distal to the origin of the intrathoracic segment. The cervical segments of the dominant left vertebral artery are widely patent. 7. Incidentally visualized are several prominent lymph nodes in the right paratracheal space, the anterior carinal space and adjacent the transverse aorta. I am uncertain whether these are benign reactive nodes or not. If lymphoma is a clinical consideration, CT chest may be helpful for further evaluation. N.B. : The above information has been verbally conveyed by Bud Lee MD to Zak Duff MD, on 08/29/2020 12:25:17 (ET). Electronically Signed: Bud Lee MD at 12:27 EDT , Service support , ADDENDUM: 08/29/20 1234 IMPRESSION: 1. No significant vaso-occlusive disease of the anterior and posterior intracranial circulation. 2. 60% stenosis of the right internal carotid artery bulb origin due to calcified plaques. The remainder of the right cervical internal carotid artery is widely patent. 3. Widely patent bilateral common carotid arteries. 4. Widely patent vertebral arteries, left is dominant. 5. Widely patent aortic arch and origins of the great vessels. 6. No more than 50% stenosis at the subclavian origin of the dominant left vertebral artery due to calcified plaque and noncalcified plaque distal to the origin of the intrathoracic segment. The cervical segments of the dominant left vertebral artery are widely patent. 7. Incidentally visualized are several prominent lymph nodes in the right paratracheal space, the anterior carinal space and adjacent the transverse aorta. I am uncertain whether these are benign reactive nodes or not. If lymphoma is a clinical consideration, CT chest may be helpful for further evaluation. N.B. : The above information has been verbally conveyed by Bud Lee MD to Zak Duff MD, on 08/29/2020 12:25:17 (ET). Electronically Signed: Bud Lee MD at 12:27 EDT , Service support , Medical Necessity - Tobacco Use Smoking Status: Unknown if ever smoked Assessment/Plan All Active Problems (This Medical Record has been edited. Action required.) Ulcer of left lower extremity with fat layer exposed (Resolved) Ulcer of right lower extremity with fat layer exposed (Resolved) Decubitus ulcer of coccyx, stage 2 (Resolved) CVA (cerebral vascular accident) (Acute) Respiratory failure (Acute) Aspirated gastric contents in lower respiratory tract (Acute) ESRD (end stage renal disease) on dialysis (Acute) Septic shock (Resolved) Hyperkalemia (Resolved) Pneumonia (Acute) Urinary tract infection (Resolved) Shock liver (Resolved) Chronic ulcer of left foot with fat layer exposed (Resolved) Ulcer of left foot (Resolved) Diabetic foot infection (Resolved) RECOMMENDATIONS: 1. Discontinue Precedex and proceed with a trial of extubation this morning. 2. Once extubated, wean supplemental oxygen to maintain saturations at or above 90%. 3. Obtain MRI brain, if feasible. 4. PT/OT evaluations. 5. Continue empiric antimicrobials for the next 24 hours, while awaiting infectious work-up results. IMPRESSIONS: 1. Acute respiratory failure Improved. The patient was initially intubated in the emergency department over concerns for airway protection in the setting of suspected CVA. There is also some concern about potential aspiration. Despite this, no significant consolidation or airspace opacity was noted on chest x-ray. For now, I agree with continuing empiric antimicrobials, while awaiting infectious work-up. The patient is currently a candidate for a trial of extubation this morning. Once extubated, supplemental oxygen can be weaned. Recommend bedside swallow evaluation with advancement of diet. PT/OT evaluations today. 2. Encephalopathy with concern for acute CVA Improved. It is unclear what the patient's blood pressures were like during his dialysis session. It is possible that if the patient became hemodynamically unstable during dialysis, that his cerebral perfusion pressures may have been impacted as a consequence, leading to his mental status changes. 3. History of coronary artery disease/congestive heart failure/ischemic cardiomyopathy status post ICD/pacemaker Continue baseline cardiac medications, with the exception of antihypertensives. 4. End-stage renal disease on hemodialysis Obtain nephrology consultation to assist with ongoing hemodialysis needs. 5. Anxiety/hyperlipidemia/neuropathy/hypothyroidism/obesity Complicates care, management, recovery and prognosis. Continue home medications as indicated. Physical therapy to evaluate the patient today. TIME: 38 minutes of critical care time, independent of procedures, was spent addressing the patient's acute respiratory failure, encephalopathy with concern for CVA, coronary artery disease, congestive heart failure, end-stage renal disease on hemodialysis, review of all data and collaboration with the care team. ([id number]) [phone]: [id number] Critical care first hour
--- NOTE | 2020-08-30 06:42 | NURSING ---
Pt. extubated by respiratory therapy to 2L NC. Pt. tolerated well.
--- NOTE | 2020-08-30 07:22 | PN_ITS ---
Patient Problems: Active and Suspected Problems (This Medical Record has been edited. Action required.) CVA (cerebral vascular accident) (Acute) Respiratory failure (Acute) Aspirated gastric contents in lower respiratory tract (Acute) Reason for Visit: Suspected CVA Subjective: Patient is a 60-year-old gentleman with multiple medical comorbidities including end-stage renal disease on hemodialysis who was brought to the emergency department on suspicion of an acute CVA. His NIH was 20 on admission patient was however not deemed to be a TPA candidate since he is on Eliquis Patient was admitted to the intensive care unit weaned off the vent on the morning of 08/30/2020 Objective: GENERAL: cooperative HEENT: Atraumatic; EYES; Anicteric, Normal Conjunctiva NECK; supple, normal thyroid, RESPIRATORY: Diminished to auscultation CARDIOVASCULAR: Regular S1 S2, GI: soft, normoactive bowel sounds, : No Renal angle tenderness; EXTREMITIES: left foot chronic ulcer in surgical dressing MUSCULOSKELETAL: no muscle waisting NEURO: Awake; no lateralizing signs. SKIN: No Rash PSYCH; Flat affect Vitals/I&O's: Vital Signs Temp Pulse Resp BP Pulse Ox 99 F 75 12 106/57 L 98 08/30/20 06:00 08/30/20 06:00 08/30/20 06:00 08/30/20 06:00 08/30/20 06:00 Oxygen Flow Rate (L/min) 4 Oxygen Delivery Method Mechanical Ventilator Weight: 133.6 kg Body Mass Index (BMI) 41.0 Finger Stick Blood Glucose 160 Intake and Output for Last 24 Hours 08/28/20 08/29/20 08/30/20 23:59 23:59 23:59 Intake Total 1481.19 / 1508.72 1272.71 / 1272.71 Output Total 655 / 655 125 / 125 Balance 826.19 / 853.72 1147.71 / 1147.71 Laboratory Results 08/29/20 10:23: WBC 8.3, RBC 3.32 L, Hgb 9.8 L, Hct 33.1 L, MCV 99.7 H, MCH 29.5, MCHC 29.6 L, RDW Std Deviation 59.1 H, RDW Coeff of Melissa 16.7 H, Plt Count 174, MPV 8.9, Immature Gran % (Auto) 0.700, Neut % (Auto) 80.4 H, Lymph % (Auto) 7.0 L, [place] % (Auto) 9.5, Eos % (Auto) 1.9, Baso % (Auto) 0.5, Absolute Neuts (auto) 6.7, Absolute Lymphs (auto) 0.58 L, Nucleated RBC % 0.2, Differential Comment SCANNED 08/29/20 10:23: PT 16.6 H, INR 1.4, APTT 37.7 H 08/29/20 10:23: Sodium 140, Potassium 3.8, Chloride 102, Carbon Dioxide 25.0, Anion Gap 13, BUN 82 H, Creatinine 7.64 H*, Estim Creat Clear Calc 11.00, Est GFR (MDRD) Af Amer 9 L, Est GFR (MDRD) Non-Af 8 L, BUN/Creatinine Ratio 10.7, Glucose 114 H, Calcium 7.8 L, Troponin I 0.020 08/29/20 13:20: Specimen Type ART, Sample Site R BRACHIAL, pH 7.24 L, Bicarbonate Actual 24.3, Total CO2 26, Base Excess -3 L, O2 Saturation 83 L, O2 % 40, ABG pCO2 57.2 H, ABG pO2 57 L, Respiration Rate 12, O2 Delivery Device Vent, Vent Mode A-C, Tidal Volume 550, POC PEEP 5, Blood Gas Notified Whom ED 08/29/20 13:50: MRSA (PCR) POSITIVE H 08/29/20 14:20: Troponin I < 0.015 08/29/20 18:08: POC Glucose 167 H 08/29/20 18:50: Troponin I < 0.015 08/29/20 23:01: POC Glucose 211 H 08/30/20 05:02: POC Glucose 249 H 08/30/20 05:05: WBC 4.8, RBC 3.23 L, Hgb 9.6 L, Hct 32.1 L, MCV 99.4 H, MCH 29.7, MCHC 29.9 L, RDW Std Deviation 58.6 H, RDW Coeff of Melissa 16.6 H, Plt Count 144 L, MPV 9.2, Immature Gran % (Auto) 0.600, Neut % (Auto) 85.7 H, Lymph % (Auto) 7.4 L, [place] % (Auto) 6.1, Eos % (Auto) 0.0, Baso % (Auto) 0.2, Absolute Neuts (auto) 4.1, Absolute Lymphs (auto) 0.35 L, Nucleated RBC % 0.4, Differential Comment SCANNED 08/30/20 05:05: Sodium 140, Potassium 5.9 H, Chloride 103, Carbon Dioxide 19.0 L , Anion Gap 18 H, BUN 106 H*, Creatinine 8.64 H*, Estim Creat Clear Calc 9.73, Est GFR (MDRD) Af Amer 8 L, Est GFR (MDRD) Non-Af 7 L, BUN/Creatinine Ratio 12.3, Glucose 250 H, Calcium 6.8 L, Phosphorus 10.9 H*, Triglycerides 67, Cholesterol 67, LDL Cholesterol 20, VLDL Cholesterol 13, HDL Cholesterol 34 L, TSH 1.57 Current Medications Acetaminophen (Tylenol) 650 mg RECTAL Q4H PRN PRN PRN Reason: Pain Score 1-10/Temp > 100.7 F Albuterol Sulfate (Ventolin Aerosols) 2.5 mg INHALATION Q2H PRN PRN PRN Reason: SOB/Wheezing Apixaban (Eliquis) 5 mg PO BID [facility] Last Admin: 08/29/20 21:53 Dose: 5 mg Documented by: Aspirin (Ecotrin) 81 mg PO DAILY [facility] Atorvastatin Calcium (Lipitor) 80 mg PO QHS [facility] Last Admin: 08/29/20 21:53 Dose: 80 mg Documented by: Chlorhexidine Gluconate () 15 ml PO BID [facility] Last Admin: 08/29/20 21:15 Dose: 15 ml Documented by: Dextrose (D50w Syringe) 0 gm IV X1 PRN; Protocol PRN Reason: Hypoglycemia Glucagon () 1 mg IM .X1 PRN PRN Reason: Hypoglycemia Hydralazine HCl (Apresoline Iv) 5 mg IV Q30M PRN PRN Reason: to maintain BP goals Famotidine 20 mg/ Sodium (Chloride) 10 mls @ 300 mls/hr IV Q12 [facility] Last Infusion: 08/29/20 21:22 Dose: Infused Documented by: Piperacillin Sod/Tazobactam (Sod 3.375 gm/ Sodium Chloride) 50 mls @ 12.5 mls/hr IV Q12 [facility] Last Infusion: 08/30/20 01:25 Dose: Infused Documented by: Dexmedetomidine HCl 400 mcg/ (Sodium Chloride) 100 mls @ 16.7 mls/hr CONT INF .Q6H [facility]; Protocol Last Titration: 08/30/20 06:30 Dose: 0.7 mcg/kg/hr, 23.4 mls/hr Documented by: Fentanyl Citrate 1,000 mcg/ (Sodium Chloride) 100 mls @ 5 mls/hr CONT INF .Q20H [facility]; Protocol Last Titration: 08/30/20 06:00 Dose: 0 mcg/hr, 0 mls/hr Documented by: Sodium Chloride () 250 mls @ 15 mls/hr IV .[id number] PRN PRN Reason: Saline Flush Sodium Chloride () 250 mls @ 15 mls/hr IV .[id number] PRN PRN Reason: Additional IVPB Infusion Insulin Human Lispro (Humalog Kwikpen (Bkc)) 0 unit SC Q6 [facility]; Protocol Last Admin: 08/30/20 05:07 Dose: 3 units Documented by: Ketorolac Tromethamine (Ketorolac Tromethamine) 1 ml EACH EYE TID [facility] Last Admin: 08/30/20 05:25 Dose: 1 ml Documented by: Labetalol HCl (Trandate) 20 mg IV X1 PRN PRN Reason: BLOOD PRESSURE Labetalol HCl (Trandate) 10 - 20 mg IV Q10M PRN PRN PRN Reason: to Maintain BP Goals Levothyroxine Sodium (Synthroid) 25 mcg PO DAILY@0600 [facility] Last Admin: 08/30/20 05:24 Dose: Not Given Documented by: Ondansetron HCl (Zofran) 4 mg IV Q8H PRN PRN PRN Reason: NAUSEA/VOMITING Last Admin: 08/30/20 05:30 Dose: 4 mg Documented by: Prednisolone Acetate (Pred Forte Eye Drops (5 Ml)) 1 drop EACH EYE TID [facility] Last Admin: 08/30/20 05:24 Dose: 1 drop Documented by: Sodium Chloride () 10 - 40 ml IV UD PRN PRN Reason: SALINE FLUSH Last Admin: 08/30/20 05:31 Dose: 30 ml Documented by: STROKE Vital Signs/Narrative: Vital Signs Temp Pulse Resp BP Pulse Ox 08/30/20 06:00 99 F 75 12 106/57 L 98 08/30/20 05:21 20 H 08/30/20 05:00 98.8 F 73 16 106/75 99 08/30/20 04:00 98.8 F 72 14 103/54 L 98 08/30/20 03:50 71 Medical Necessity - Tobacco Use Smoking Status: Unknown if ever smoked Assessment/Plan All Active Problems (This Medical Record has been edited. Action required.) Ulcer of left lower extremity with fat layer exposed (Resolved) Ulcer of right lower extremity with fat layer exposed (Resolved) Decubitus ulcer of coccyx, stage 2 (Resolved) CVA (cerebral vascular accident) (Acute) Respiratory failure (Acute) Aspirated gastric contents in lower respiratory tract (Acute) Septic shock (Resolved) Hyperkalemia (Resolved) Pneumonia (Acute) Urinary tract infection (Resolved) Shock liver (Resolved) Chronic ulcer of left foot with fat layer exposed (Resolved) Ulcer of left foot (Resolved) Diabetic foot infection (Resolved) Patient is a 60-year-old gentleman with multiple medical comorbidities including end-stage renal disease on hemodialysis who was brought to the emergency department on suspicion of an acute CVA. His NIH was 20 on admission patient was however not deemed to be a TPA candidate since he is on Eliquis 1. Suspected acute CVA ?Ischemic. Admitted to the intensive care unit. Patient started on antiplatelet therapy with aspirin per rectum. Patient did not receive TPA since patient is on Eliquis. As part of his management 2D echo was ordered and consultation placed to neurology -08/30/2020. Patient extubated of the vent this a.m. He however does not appear to have any neurological deficit. MRI has been ordered for subsequent assessment 2. Acute hypoxic respiratory failure ?Secondary to above. Patient was intubated in the ED to protect his airway. Consult placed to pulmonary medicine for vent management -08/30/2020;was weaned off the vent on the morning of 08/30/2020 3. Suspected aspiration pneumonitis ?Patient NG tube returned feculent material patient started on Zosyn 4. Coronary artery disease ?Previous CABG 5. Ischemic cardiomyopathy -status post AICD/pacemaker placement . Diabetes mellitus type 2 ?With complications including diabetic polyneuropathy, diabetic nephropathy resulting in end-stage renal disease. Home regimen held in view of patient being on the vent please on Accu-Cheks 6 with sliding scale coverage 7. End-stage renal disease ?Secondary to diabetic nephropathy. Patient is on hemodialysis on Tuesdays and Saturdays consult placed to nephrology for dialysis orders 8. Hypothyroidism ?On levothyroxine 9. Systemic use of anticoagulation ?Reason not clear. Patient Tosha held given his presentation 10. Chronic left lower extremity wound ?Consult placed to care nurse 11. Anemia - Secondary to chronic disorder?anemia of end-stage renal disease monitoring H&H and transfuse if patient becomes symptomatic or hemoglobin falls below 7 12. DVT prophylaxis ?SC heparin bilateral SCDs Inpatient E&M: 23418 Subs Hosp L3
--- NOTE | 2020-08-30 09:42 | TELEMED_ITS ---
[facility] Tele[facility] has confirmed receipt of a request for visit. This document confirms receipt of the order initiating the consult. To find the results of the consultation, please view the patient's reports for the scanned Telemed Consult.
[2020-08-30] MEDS: APIXABAN 5 MG TABLET PO ×2 (10:23→21:36)
[2020-08-30] MEDS: Aspirin E.C. 81 MG Tablet PO (10:23)
[2020-08-30 11:46] LABS: Bedside Glucose 205 mg/dL (70-110)
--- NOTE | 2020-08-30 12:01 | NURSING ---
wound photo: left lateral lower leg
--- NOTE | 2020-08-30 12:01 | NURSING ---
wound photo: left foot
--- NOTE | 2020-08-30 13:28 | CT_ITS ---
STUDY: CT BRAIN WITHOUT CONTRAST REASON FOR EXAM: Male, 60 years old. Stroke RADIATION DOSAGE (If Supplied By Facility): CTDIvol = ( 44.99 ) mGy, DLP = ( 829.85 ) mGycm TECHNIQUE: Transaxial CT imaging of the brain was performed without administration of intravenous contrast material. Individualized dose optimization techniques were used for this CT. COMPARISON: 08/29/20 FINDINGS: There is no acute bleed or infarct. There are stable chronic ischemic and atrophic changes. The ventricles are normal in configuration. There is no hydrocephalus. The visualized paranasal sinuses are clear. The mastoid air cells are well aerated. There is no skull fracture. CT/Brain/Head without Contrast IMPRESSION: Stable chronic ischemic and atrophic changes. No acute intracranial abnormality. Electronically Signed: Shaun Farnsworth, at 14:54 EDT Tel , Service support ,
--- NOTE | 2020-08-30 14:00 | PCM.CONS.R ---
Problem List (1) ESRD (end stage renal disease) on dialysis Status: Acute Consultation - Renal 08/30/20 PCP/ Referring MD: Requesting physician: [] Primary care physician: Dr. Nati Langston MD Reason for Consultation:: esrd - History of Present Illness History of Present Illness: The patient is a 60 year old M who is admitted to the hospital with complaints of altered mental status, suspected stroke. He was intubated in the emergency room yesterday. Extubated this morning. Work-up was negative for acute stroke. He is currently alert awake and denies any complaints. No focal neurological symptoms. Apparently he did receive about 2 and half hours of dialysis yesterday before 911 was called. Has a right IJ tunneled dialysis catheter for access. - Allergies Allergies: Allergies CONTRAST DYE Adverse Reaction (Uncoded 08/29/20 10:42) Other - Current Medications Current Medications: Current Medications Acetaminophen (Tylenol) 650 mg RECTAL Q4H PRN PRN PRN Reason: Pain Score 1-10/Temp > 100.7 F Albuterol Sulfate (Ventolin Aerosols) 2.5 mg INHALATION Q2H PRN PRN PRN Reason: SOB/Wheezing Apixaban (Eliquis) 5 mg PO BID [facility] Last Admin: 08/30/20 10:23 Dose: 5 mg Documented by: Aspirin (Ecotrin) 81 mg PO DAILY [facility] Last Admin: 08/30/20 10:23 Dose: 81 mg Documented by: Atorvastatin Calcium (Lipitor) 80 mg PO QHS [facility] Last Admin: 08/29/20 21:53 Dose: 80 mg Documented by: Dextrose (D50w Syringe) 0 gm IV X1 PRN; Protocol PRN Reason: Hypoglycemia Glucagon () 1 mg IM .X1 PRN PRN Reason: Hypoglycemia Hydralazine HCl (Apresoline Iv) 5 mg IV Q30M PRN PRN Reason: to maintain BP goals Piperacillin Sod/Tazobactam (Sod 3.375 gm/ Sodium Chloride) 50 mls @ 12.5 mls/hr IV Q12 [facility] Last Admin: 08/30/20 10:22 Dose: 12.5 mls/hr Documented by: Sodium Chloride () 250 mls @ 15 mls/hr IV .[id number] PRN PRN Reason: Saline Flush Sodium Chloride () 250 mls @ 15 mls/hr IV .[id number] PRN PRN Reason: Additional IVPB Infusion Insulin Human Lispro (Humalog Kwikpen (Bkc)) 0 unit SC ACHS [facility]; Protocol Last Admin: 08/30/20 11:29 Dose: 2 u Documented by: Ketorolac Tromethamine (Ketorolac Tromethamine) 1 ml EACH EYE TID [facility] Last Admin: 08/30/20 13:03 Dose: 1 ml Documented by: Labetalol HCl (Trandate) 20 mg IV X1 PRN PRN Reason: BLOOD PRESSURE Labetalol HCl (Trandate) 10 - 20 mg IV Q10M PRN PRN PRN Reason: to Maintain BP Goals Levothyroxine Sodium (Synthroid) 25 mcg PO DAILY@0600 [facility] Last Admin: 08/30/20 05:24 Dose: Not Given Documented by: Ondansetron HCl (Zofran) 4 mg IV Q8H PRN PRN PRN Reason: NAUSEA/VOMITING Last Admin: 08/30/20 05:30 Dose: 4 mg Documented by: Prednisolone Acetate (Pred Forte Eye Drops (5 Ml)) 1 drop EACH EYE TID [facility] Last Admin: 08/30/20 13:03 Dose: 1 drop Documented by: Sodium Chloride () 10 - 40 ml IV UD PRN PRN Reason: SALINE FLUSH Last Admin: 08/30/20 05:31 Dose: 30 ml Documented by: - Past Medical History Past Medical History (Chronic Problems): Chronic Problems (This Medical Record has been edited. Action required.) Renal failure (Chronic) Anemia (Chronic) Equinus contracture of left ankle (Chronic) Hammer toe of left foot (Chronic) Diabetic neuropathy (Chronic) CHF (congestive heart failure) (Chronic) Infected skin ulcer with fat layer exposed (Chronic) Leg wound, left (Chronic) Ulcer of left foot (Chronic) Diabetic foot ulcer associated with secondary diabetes mellitus (Chronic) Swelling of lower extremity (Chronic) Hyperlipidemia (Chronic) Hypertension (Chronic) Diabetes mellitus (Chronic) History of MS (myocardial infarction) (Chronic) Coronary artery arteriosclerosis (Chronic) Venous insufficiency of both lower extremities (Chronic) Edema, lower extremity (Chronic) Peripheral vascular disease (Chronic) - Past Surgical History Surgical History: coronary bypass surgery, pacemaker implantation, - - Social History Smoking Status: Never smoker - Family History Maternal History Items: - - Patient's father at age of 83 with a history of heart disease and dementia. The patient's mother is alive, age 84, and healthy. Paternal History Items: Diabetes, Hypertension Review of Systems Constitutional: Denies: Chills, Fever, Weight Change HEENT: Denies: Head Aches, Sinus Congestion, Sinus Drainage Cardiovascular: Denies: Chest Pain, Palpitations Respiratory: Denies: Cough, Shortness of breath at rest, Sputum production Gastrointestinal: Denies: Abdominal Pain, Nausea, Vomiting Genitourinary: Denies: Dysuria Musculoskeletal: Denies: Joint Pain, Joint Tenderness Skin: Denies: Rash, Wounds Neurological: Denies: Numbness, Tingling, Focal weakness Psychiatric: Denies: Anxiety, Depression, Homicidal Ideations, Suicidal Ideations Hematologic/ Lymphatic: Denies: Easy Bruising, Easy Bleeding Patient Problems: Active and Suspected Problems (This Medical Record has been edited. Action required.) CVA (cerebral vascular accident) (Acute) Respiratory failure (Acute) Aspirated gastric contents in lower respiratory tract (Acute) ESRD (end stage renal disease) on dialysis (Acute) - Physical Exam Vitals/I&O's: Vital Signs Temp Pulse Resp BP Pulse Ox 98.4 F 73 16 100/60 96 08/30/20 12:00 08/30/20 13:00 08/30/20 13:00 08/30/20 13:00 08/30/20 13:00 Oxygen Flow Rate (L/min) 2 Oxygen Delivery Method Room Air Weight: 133.6 kg Body Mass Index (BMI) 41.0 Finger Stick Blood Glucose 160 Intake and Output for Last 24 Hours 08/28/20 08/29/20 08/30/20 23:59 23:59 23:59 Intake Total 1481.19 / 1508.72 1517.39 / 1517.39 Output Total 655 / 655 165 / 165 Balance 826.19 / 853.72 1352.39 / 1352.39 General: Alert, Oriented x3, Cooperative HEENT: Atraumatic, PERRLA, EOMI, Normocephalic Neck: Supple, No JVD, Negative Carotid Bruits Lungs: Clear to auscultation, Normal air movement Cardiovascular: Regular rate, No murmurs Abdomen: Bowel Sounds Present, Soft, Non Tender Extremities: No edema, Capillary Refill Less than 3 Seconds Skin: No rashes, No breakdown Musculoskeletal: No Tenderness to Palpation of Joints or Extremities Neurological: Cranial nerves II-XII grossly intact Psych/Mental Status: Normal Affect, Appropriate Microbiology Past 72 Hours 08/29/20 22:00 Sputum, Tracheal Aspirate Gram Stain - Final 08/29/20 22:00 Sputum, Tracheal Aspirate Respiratory Culture - Preliminary Appears to be normal respiratory abel. Further studies to follow. Laboratory Results 08/29/20 13:50: MRSA (PCR) POSITIVE H 08/29/20 14:20: Troponin I < 0.015 08/29/20 18:08: POC Glucose 167 H 08/29/20 18:50: Troponin I < 0.015 08/29/20 23:01: POC Glucose 211 H 08/30/20 05:02: POC Glucose 249 H 08/30/20 05:05: WBC 4.8, RBC 3.23 L, Hgb 9.6 L, Hct 32.1 L, MCV 99.4 H, MCH 29.7, MCHC 29.9 L, RDW Std Deviation 58.6 H, RDW Coeff of Melissa 16.6 H, Plt Count 144 L, MPV 9.2, Immature Gran % (Auto) 0.600, Neut % (Auto) 85.7 H, Lymph % (Auto) 7.4 L, Cocke % (Auto) 6.1, Eos % (Auto) 0.0, Baso % (Auto) 0.2, Absolute Neuts (auto) 4.1, Absolute Lymphs (auto) 0.35 L, Nucleated RBC % 0.4, Differential Comment SCANNED 08/30/20 05:05: Sodium 140, Potassium 5.9 H, Chloride 103, Carbon Dioxide 19.0 L, Anion Gap 18 H, BUN 106 H*, Creatinine 8.64 H*, Estim Creat Clear Calc 9.73, Est GFR (MDRD) Af Amer 8 L, Est GFR (MDRD) Non-Af 7 L, BUN/Creatinine Ratio 12.3, Glucose 250 H, Calcium 6.8 L, Phosphorus 10.9 H*, Triglycerides 67, Cholesterol 67, LDL Cholesterol 20, VLDL Cholesterol 13, HDL Cholesterol 34 L, TSH 1.57 08/30/20 11:27: POC Glucose 205 H Current Medications Acetaminophen (Tylenol) 650 mg RECTAL Q4H PRN PRN PRN Reason: Pain Score 1-10/Temp > 100.7 F Albuterol Sulfate (Ventolin Aerosols) 2.5 mg INHALATION Q2H PRN PRN PRN Reason: SOB/Wheezing Apixaban (Eliquis) 5 mg PO BID [facility] Last Admin: 08/30/20 10:23 Dose: 5 mg Documented by: Aspirin (Ecotrin) 81 mg PO DAILY [facility] Last Admin: 08/30/20 10:23 Dose: 81 mg Documented by: Atorvastatin Calcium (Lipitor) 80 mg PO QHS [facility] Last Admin: 08/29/20 21:53 Dose: 80 mg Documented by: Dextrose (D50w Syringe) 0 gm IV X1 PRN; Protocol PRN Reason: Hypoglycemia Glucagon () 1 mg IM .X1 PRN PRN Reason: Hypoglycemia Hydralazine HCl (Apresoline Iv) 5 mg IV Q30M PRN PRN Reason: to maintain BP goals Piperacillin Sod/Tazobactam (Sod 3.375 gm/ Sodium Chloride) 50 mls @ 12.5 mls/hr IV Q12 [facility] Last Admin: 08/30/20 10:22 Dose: 12.5 mls/hr Documented by: Sodium Chloride () 250 mls @ 15 mls/hr IV .[id number] PRN PRN Reason: Saline Flush Sodium Chloride () 250 mls @ 15 mls/hr IV .[id number] PRN PRN Reason: Additional IVPB Infusion Insulin Human Lispro (Humalog Kwikpen (Bkc)) 0 unit SC ACHS [facility]; Protocol Last Admin: 08/30/20 11:29 Dose: 2 u Documented by: Ketorolac Tromethamine (Ketorolac Tromethamine) 1 ml EACH EYE TID [facility] Last Admin: 08/30/20 13:03 Dose: 1 ml Documented by: Labetalol HCl (Trandate) 20 mg IV X1 PRN PRN Reason: BLOOD PRESSURE Labetalol HCl (Trandate) 10 - 20 mg IV Q10M PRN PRN PRN Reason: to Maintain BP Goals Levothyroxine Sodium (Synthroid) 25 mcg PO DAILY@0600 [facility] Last Admin: 08/30/20 05:24 Dose: Not Given Documented by: Ondansetron HCl (Zofran) 4 mg IV Q8H PRN PRN PRN Reason: NAUSEA/VOMITING Last Admin: 08/30/20 05:30 Dose: 4 mg Documented by: Prednisolone Acetate (Pred Forte Eye Drops (5 Ml)) 1 drop EACH EYE TID [facility] Last Admin: 08/30/20 13:03 Dose: 1 drop Documented by: Sodium Chloride () 10 - 40 ml IV UD PRN PRN Reason: SALINE FLUSH Last Admin: 08/30/20 05:31 Dose: 30 ml Documented by: Assessment/Plan All Active Problems (This Medical Record has been edited. Action required.) Ulcer of left lower extremity with fat layer exposed (Resolved) Ulcer of right lower extremity with fat layer exposed (Resolved) Decubitus ulcer of coccyx, stage 2 (Resolved) CVA (cerebral vascular accident) (Acute) Respiratory failure (Acute) Aspirated gastric contents in lower respiratory tract (Acute) ESRD (end stage renal disease) on dialysis (Acute) Septic shock (Resolved) Hyperkalemia (Resolved) Pneumonia (Acute) Urinary tract infection (Resolved) Shock liver (Resolved) Chronic ulcer of left foot with fat layer exposed (Resolved) Ulcer of left foot (Resolved) Diabetic foot infection (Resolved) End-stage renal disease. Dialysis yesterday. I called his home dialysis unit. Apparently he has been noncompliant and has been coming into dialysis 1-2 times a week. As of yesterday he was 14 kg above his dry weight. In general runs high potassium and phosphate. Potassium is on the higher side today at 5.9. Will plan for dialysis today. Altered mental status. No acute evidence of stroke. BUN is 109 after dialysis. I suspect he might have had some component of dialysis disequilibrium syndrome yesterday due to high metabolites. Hyperkalemia. Dialysis on a 2K bath today Hyperphosphatemia. Now that he is extubated, resume binders.
--- NOTE | 2020-08-30 15:43 | CASEMGMT ---
LM HSIEH ASSESSMENT: LM HSIEH to room to meet with patient for initial transition planning/care coordination assessment. LM HSIEH introduced self and role at [facility]. Pt voices understanding and consents to assessment at this time. Pt resting in bed in no distress at this time. Pt is A/O to name/place but does have some difficulty w/answering some questions/providing details. Pt gave LM HSIEH permission to call and talk to his son, John, to discuss his care. Call placed to John after talking with pt and information gathered from pt was confirmed at that time. Care providers, pharmacy, and demographics verified/updated at this time. PCP: Dr Langston Specialists: Cardio- Dr Ramirez from [facility], Cardio- Dr Carlso from [facility]. John states pt sees Dr Carlos @ [place] office. LM HSIEH inquired about pt seeing 2 different cardiologists. 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 LM HSIEH asked John if pt goes to it infrastructure specialist for lt foot/leg wounds. John states he does not see a it infrastructure specialist. He states Dr Langston (PCP) does take a look at it when they have appt with him. John states he does daily dressing changes to wounds and thinks they are improving. Dr Kasper--nephrology--sees pt @ [facility] (has been doing telehealth visits with pt since COVID pandemic). Gets HD T/TH/SAT. Chair time 0600. Call placed to [facility]. They were made aware pt has been admitted to [facility]. Per nurse @ [facility], pt usually misses HD about once a week and usually requests to come off of dialysis early. Nurse also states they have referred pt to it infrastructure specialist several times for wound lt foot, but pt has not f/u for wound care. Preferred Pharmacy: [facility] Insurance: [facility] PPO Rx Benefit:?Yes ?LNOK: Son John Cordero. Mother, Samara Cordero LW/HPOA: John states thinks pt has started working on a LW but does not think he has completed it. John is interested in further information. John made aware that while pt having any confusion/altered mental status, these documents can not be completed, but that once he is oriented that this is something that could be completed w/SW, while @ [facility] or as an out-pt. John made aware [employer] card will be placed in pt's room/in folder for their reference. Living Arrangements:? Lives with his son John and Dtr in law in a 2-story home w/ramp entrance. Bedroom on 1st floor ADL?s: Ambulates with FWW. Son assists with bathing, dressing, medications, appts, wound care/daily dressing changes. Dtr in law assists with meals Transportation: Justin. Lopez states he was off of work d/t COVID but that he just started a new job. He voices concern about getting pt to his appts and home from HD. He states he will have no problem getting pt to HD but does not know how he will get him back home. John's also drives, but he states she works in [place] and will not be available either for HD. SW made aware and will provide resources. When talking with nurse @ [facility], this RN CM also informed them of John's concerns w/transportation. She states will notify their SW to assist as well. DME: WW, BSC, Hospital Bed, Glucometer, WC. O2 through [facility] (John states is just PRN). Has concentrator and portability. HHC: Past [facility] SNF: None Goal: Pt states he does not want to go to SNF even if therapy recommends it, stating, I have a home and that's where I'm going. Pt states he would be agreeable to HHC and would like [facility] again, as he has had them in the past. When LM HSIEH spoke with John, he was made aware of pt's wishes. John states depending on pt's weakness, would determine if he would feel he is safe to return home. RN МАРИЯ informed John that PT/OT evals are still pending and further discussion about discharge disposition can be addressed further, depending on how well pt does and any recommendations made. DC PLAN: TBD. PT/OT evals pending. Pt wishes to return home w/[facility]. If SNF is recommended by therapy, further discussion with pt and son may be needed. Lorena KLINE RN, CM
[2020-08-30] MEDS: Acetaminophen 325 MG Tablet 650 MG PO (17:58)
[2020-08-30 18:06] LABS: Bedside Glucose 197 mg/dL (70-110)
[2020-08-30] MEDS: Heparin 10,000 UNITS/10 ML Vial IV (18:59)
--- NOTE | 2020-08-30 19:08 | DIALYSIS ---
HD x 2.5 hours complete. Tolerated tx well. UF of 3000ml. Ran on 2k bath. Used right chest wall dialysis catheter. Catheter closed with heparin per fill volume. Caps placed. Dressing is dry and intact. Report was given to LM Daniel.
[2020-08-30] MEDS: Atorvastatin Calcium 80 MG Tablet PO (21:36)
[2020-08-31] VITALS (14 sets, daily range): BP systolic 90–125; BP diastolic 54–85; PULSE 65–74; RESP 14–18; TEMP 36.4–37.1; O2SAT 92–98; BMI 41.0
[2020-08-31 03:40] LABS: Absolute Lymphocyte Count 1.07 X10^3/uL (0.83-4.51); Absolute Neutrophil Count 5.3 X10^3/uL (2.0-7.7); Basophil# 0.03 X10^3/uL; Basophil% 0.4 % (0-1); Eosinophil# 0.14 X10^3/uL; Eosinophils% 1.9 % (0-5); Hematocrit 30.7 % (40-54); Hemoglobin 9.2 g/dL (13.0-16.5); Lymphocyte # 1.07 X10^3/ul (4.0); Lymphocyte % 14.5 % (19-41); Mean Corpuscular Hgb 29.6 pg (27.0-32.0); Mean Corpuscular Volume 98.7 fL (80-94); Mean Platelet Vol. 9.1 fl (6.2-12.0); Monocyte# 0.83 X10^3/uL; Monocyte% 11.2 % (0-10); NRBC Flagged by Analyzer 0 % (0-5); Neutrophil # 5.27 X10^3/uL (2.7-7.7); Neutrophil % 71.5 % (47-70); Platelet Count 171 K/mm3 (150-450); Red Blood Count 3.11 M/mm3 (4.6-6.2); White Blood Count 7.4 K/mm3 (4.4-11.0)
[2020-08-31 03:49] LABS: Anion Gap 10 (5-15); BUN 82 mg/dL (7-18); BUN/Creat Ratio 11.4 RATIO (10-20); Calcium,Total 6.6 mg/dL (8.5-10.1); Chloride 99 mmol/L (98-107); Creatinine, Serum 7.22 mg/dL (0.70-1.30); EST Glomerular Filtration Rate 8 mL/min (>60); Est Glom Filt Rate - Afr Amer 10 mL/min (>60); Estimated Creatinine Clearance 11.64 ml/min; Glucose 176 mg/dL (74-106); Sodium Level 135 mmol/L (136-145)
--- NOTE | 2020-08-31 05:44 | PCM.PN.INT ---
Subjective: The patient was seen and examined at the bedside this morning. Events from the last 24 hours have been reviewed. The patient is currently afebrile, hemodynamically stable and maintaining appropriate oxygen saturations on room air. Repeat head CT completed yesterday afternoon revealed stable chronic ischemic and atrophic changes without acute intracranial abnormality. In speaking with nephrology yesterday, the patient has a history of noncompliance with outpatient dialysis. Objective: The patient's most recent lab work, culture data and imaging studies have all been personally reviewed. Surface echocardiogram revealed normal LV size with ejection fraction of 50%. Sputum aspirate appears to be normal respiratory abel. General: Alert, No apparent distress HEENT: Atraumatic, Normocephalic Oral: No Gingival or Mucosal Lesions/ Ulcerations Neck: Supple, No Nodes, Trachea Midline Lungs: No rhonchi, No wheeze, No rales, Diminished Cardiovascular: Regular rate, Regular Rhythm Abdomen: Bowel Sounds Present, Soft, Non Tender, Obese Extremities: No clubbing, No cyanosis Skin: - - No significant change from previous. Musculoskeletal: No Muscle Wasting Lymphatic: No Cervical, Supraclavicular, or Inguinal Adenopathy Neurological: Cranial nerves II-XII grossly intact, Neuro grossly intact Psych/Mental Status: Normal Affect, Appropriate Vital Signs Temp Pulse Resp BP Pulse Ox 97.7 F L 70 16 90/63 95 08/31/20 03:00 08/31/20 04:00 08/31/20 03:56 08/31/20 03:00 08/31/20 03:56 Oxygen Flow Rate (L/min) 2 Oxygen Delivery Method Room Air Weight: 294 lb 8.601 oz Body Mass Index (BMI) 41.0 Finger Stick Blood Glucose 160 Intake and Output for Last 24 Hours 08/29/20 08/30/20 08/31/20 23:59 23:59 23:59 Intake Total 1481.19 / 1508.72 2077.39 / 2077.39 50 / 50 Output Total 655 / 655 3175 / 3175 0 / 0 Balance 826.19 / 853.72 -1097.61 / -1097.61 50 / 50 Labs (Last 48 Hours) 08/29/20 08/29/20 08/29/20 10:23 10:23 10:23 WBC 8.3 RBC 3.32 L Hgb 9.8 L Hct 33.1 L MCV 99.7 H MCH 29.5 MCHC 29.6 L RDW Std Deviation 59.1 H RDW Coeff of Melissa 16.7 H Plt Count 174 MPV 8.9 Immature Gran % (Auto) 0.700 Neut % (Auto) 80.4 H Lymph % (Auto) 7.0 L [place] % (Auto) 9.5 Eos % (Auto) 1.9 Baso % (Auto) 0.5 Absolute Neuts (auto) 6.7 Absolute Lymphs (auto) 0.58 L Nucleated RBC % 0.2 Differential Comment SCANNED PT 16.6 H INR 1.4 APTT 37.7 H Specimen Type Sample Site pH Bicarbonate Actual Total CO2 Base Excess O2 Saturation O2 % ABG pCO2 ABG pO2 Respiration Rate O2 Delivery Device Vent Mode Tidal Volume POC PEEP Blood Gas Notified Whom Sodium 140 Potassium 3.8 Chloride 102 Carbon Dioxide 25.0 Anion Gap 13 BUN 82 H Creatinine 7.64 H* Estim Creat Clear Calc 11.00 Est GFR (MDRD) Af Amer 9 L Est GFR (MDRD) Non-Af 8 L BUN/Creatinine Ratio 10.7 Glucose 114 H Calcium 7.8 L Phosphorus Troponin I 0.020 Triglycerides Cholesterol LDL Cholesterol VLDL Cholesterol HDL Cholesterol TSH MRSA (PCR) POC Glucose 08/29/20 08/29/20 08/29/20 13:20 13:50 14:20 WBC RBC Hgb Hct MCV MCH MCHC RDW Std Deviation RDW Coeff of Melissa Plt Count MPV Immature Gran % (Auto) Neut % (Auto) Lymph % (Auto) [place] % (Auto) Eos % (Auto) Baso % (Auto) Absolute Neuts (auto) Absolute Lymphs (auto) Nucleated RBC % Differential Comment PT INR APTT Specimen Type ART Sample Site R BRACHIAL pH 7.24 L Bicarbonate Actual 24.3 Total CO2 26 Base Excess -3 L O2 Saturation 83 L O2 % 40 ABG pCO2 57.2 H ABG pO2 57 L Respiration Rate 12 O2 Delivery Device Vent Vent Mode A-C Tidal Volume 550 POC PEEP 5 Blood Gas Notified Whom ED MD Sodium Potassium Chloride Carbon Dioxide Anion Gap BUN Creatinine Estim Creat Clear Calc Est GFR (MDRD) Af Amer Est GFR (MDRD) Non-Af BUN/Creatinine Ratio Glucose Calcium Phosphorus Troponin I < 0.015 Triglycerides Cholesterol LDL Cholesterol VLDL Cholesterol HDL Cholesterol TSH MRSA (PCR) POSITIVE H POC Glucose 08/29/20 08/29/20 08/29/20 18:08 18:50 23:01 WBC RBC Hgb Hct MCV MCH MCHC RDW Std Deviation RDW Coeff of Melissa Plt Count MPV Immature Gran % (Auto) Neut % (Auto) Lymph % (Auto) [place] % (Auto) Eos % (Auto) Baso % (Auto) Absolute Neuts (auto) Absolute Lymphs (auto) Nucleated RBC % Differential Comment PT INR APTT Specimen Type Sample Site pH Bicarbonate Actual Total CO2 Base Excess O2 Saturation O2 % ABG pCO2 ABG pO2 Respiration Rate O2 Delivery Device Vent Mode Tidal Volume POC PEEP Blood Gas Notified Whom Sodium Potassium Chloride Carbon Dioxide Anion Gap BUN Creatinine Estim Creat Clear Calc Est GFR (MDRD) Af Amer Est GFR (MDRD) Non-Af BUN/Creatinine Ratio Glucose Calcium Phosphorus Troponin I < 0.015 Triglycerides Cholesterol LDL Cholesterol VLDL Cholesterol HDL Cholesterol TSH MRSA (PCR) POC Glucose 167 H 211 H 08/30/20 08/30/20 08/30/20 05:02 05:05 05:05 WBC 4.8 RBC 3.23 L Hgb 9.6 L Hct 32.1 L MCV 99.4 H MCH 29.7 MCHC 29.9 L RDW Std Deviation 58.6 H RDW Coeff of Melissa 16.6 H Plt Count 144 L MPV 9.2 Immature Gran % (Auto) 0.600 Neut % (Auto) 85.7 H Lymph % (Auto) 7.4 L [place] % (Auto) 6.1 Eos % (Auto) 0.0 Baso % (Auto) 0.2 Absolute Neuts (auto) 4.1 Absolute Lymphs (auto) 0.35 L Nucleated RBC % 0.4 Differential Comment SCANNED PT INR APTT Specimen Type Sample Site pH Bicarbonate Actual Total CO2 Base Excess O2 Saturation O2 % ABG pCO2 ABG pO2 Respiration Rate O2 Delivery Device Vent Mode Tidal Volume POC PEEP Blood Gas Notified Whom Sodium 140 Potassium 5.9 H Chloride 103 Carbon Dioxide 19.0 L Anion Gap 18 H BUN 106 H* Creatinine 8.64 H* Estim Creat Clear Calc 9.73 Est GFR (MDRD) Af Amer 8 L Est GFR (MDRD) Non-Af 7 L BUN/Creatinine Ratio 12.3 Glucose 250 H Calcium 6.8 L Phosphorus 10.9 H* Troponin I Triglycerides 67 Cholesterol 67 LDL Cholesterol 20 VLDL Cholesterol 13 HDL Cholesterol 34 L TSH 1.57 MRSA (PCR) POC Glucose 249 H 08/30/20 08/30/20 08/31/20 11:27 18:01 03:25 WBC 7.4 RBC 3.11 L Hgb 9.2 L Hct 30.7 L MCV 98.7 H MCH 29.6 MCHC 30.0 L RDW Std Deviation 60.0 H RDW Coeff of Melissa 17.0 H Plt Count 171 MPV 9.1 Immature Gran % (Auto) 0.500 Neut % (Auto) 71.5 H Lymph % (Auto) 14.5 L [place] % (Auto) 11.2 H Eos % (Auto) 1.9 Baso % (Auto) 0.4 Absolute Neuts (auto) 5.3 Absolute Lymphs (auto) 1.07 Nucleated RBC % 0 Differential Comment PT INR APTT Specimen Type Sample Site pH Bicarbonate Actual Total CO2 Base Excess O2 Saturation O2 % ABG pCO2 ABG pO2 Respiration Rate O2 Delivery Device Vent Mode Tidal Volume POC PEEP Blood Gas Notified Whom Sodium Potassium Chloride Carbon Dioxide Anion Gap BUN Creatinine Estim Creat Clear Calc Est GFR (MDRD) Af Amer Est GFR (MDRD) Non-Af BUN/Creatinine Ratio Glucose Calcium Phosphorus Troponin I Triglycerides Cholesterol LDL Cholesterol VLDL Cholesterol HDL Cholesterol TSH MRSA (PCR) POC Glucose 205 H 197 H 08/31/20 03:25 WBC RBC Hgb Hct MCV MCH MCHC RDW Std Deviation RDW Coeff of Melissa Plt Count MPV Immature Gran % (Auto) Neut % (Auto) Lymph % (Auto) [place] % (Auto) Eos % (Auto) Baso % (Auto) Absolute Neuts (auto) Absolute Lymphs (auto) Nucleated RBC % Differential Comment PT INR APTT Specimen Type Sample Site pH Bicarbonate Actual Total CO2 Base Excess O2 Saturation O2 % ABG pCO2 ABG pO2 Respiration Rate O2 Delivery Device Vent Mode Tidal Volume POC PEEP Blood Gas Notified Whom Sodium 135 L Potassium 4.0 Chloride 99 Carbon Dioxide 26.0 Anion Gap 10 BUN 82 H Creatinine 7.22 H Estim Creat Clear Calc 11.64 Est GFR (MDRD) Af Amer 10 L Est GFR (MDRD) Non-Af 8 L BUN/Creatinine Ratio 11.4 Glucose 176 H Calcium 6.6 L Phosphorus Troponin I Triglycerides Cholesterol LDL Cholesterol VLDL Cholesterol HDL Cholesterol TSH MRSA (PCR) POC Glucose Microbiology 08/29/20 22:00 Sputum, Tracheal Aspirate Gram Stain - Final 08/29/20 22:00 Sputum, Tracheal Aspirate Respiratory Culture - Preliminary Appears to be normal respiratory abel. Further studies to follow. Clinical Impression(s) from Imaging Studies Brain CT 08/29/20 10:25 IMPRESSION: 1. Normal unenhanced CT scan of the brain at this time. 2. Total ASPECTS score: 1010. N.B. : The above information has been verbally conveyed by Bud Lee MD to Dr. Sherin MD, on 08/29/2020 10:39:09 (ET). Electronically Signed: Bud Lee MD at 10:39 EDT , Service support , ADDENDUM: 08/29/20 1046 IMPRESSION: 1. Normal unenhanced CT scan of the brain at this time. 2. Total ASPECTS score: 10. N.B. : The above information has been verbally conveyed by Bud Lee MD to Dr. Sherin MD, on 08/29/2020 10:39:09 (ET). Electronically Signed: Bud Lee MD at 10:39 EDT , Service support , Chest X-Ray 08/29/20 11:20 IMPRESSION: 1. Improving subsegmental atelectases in both lungs. 2. No acute cardiopulmonary pathology. 3. No significant interval change when compared to 11/03/2019. Electronically Signed: Bud Lee MD at 12:01 EDT , Service support , Head/Neck CTA 08/29/20 11:50 IMPRESSION: 1. No significant vaso-occlusive disease of the anterior and posterior intracranial circulation. 2. 60% stenosis of the right internal carotid artery bulb origin due to calcified plaques. The remainder of the right cervical internal carotid artery is widely patent. 3. Widely patent bilateral common carotid arteries. 4. Widely patent vertebral arteries, left is dominant. 5. Widely patent aortic arch and origins of the great vessels. 6. No more than 50% stenosis at the subclavian origin of the dominant left vertebral artery due to calcified plaque and noncalcified plaque distal to the origin of the intrathoracic segment. The cervical segments of the dominant left vertebral artery are widely patent. 7. Incidentally visualized are several prominent lymph nodes in the right paratracheal space, the anterior carinal space and adjacent the transverse aorta. I am uncertain whether these are benign reactive nodes or not. If lymphoma is a clinical consideration, CT chest may be helpful for further evaluation. N.B. : The above information has been verbally conveyed by Bud Lee MD to Zak Duff MD, on 08/29/2020 12:25:17 (ET). Electronically Signed: Bud Lee MD at 12:27 EDT , Service support , ADDENDUM: 08/29/20 1234 IMPRESSION: 1. No significant vaso-occlusive disease of the anterior and posterior intracranial circulation. 2. 60% stenosis of the right internal carotid artery bulb origin due to calcified plaques. The remainder of the right cervical internal carotid artery is widely patent. 3. Widely patent bilateral common carotid arteries. 4. Widely patent vertebral arteries, left is dominant. 5. Widely patent aortic arch and origins of the great vessels. 6. No more than 50% stenosis at the subclavian origin of the dominant left vertebral artery due to calcified plaque and noncalcified plaque distal to the origin of the intrathoracic segment. The cervical segments of the dominant left vertebral artery are widely patent. 7. Incidentally visualized are several prominent lymph nodes in the right paratracheal space, the anterior carinal space and adjacent the transverse aorta. I am uncertain whether these are benign reactive nodes or not. If lymphoma is a clinical consideration, CT chest may be helpful for further evaluation. N.B. : The above information has been verbally conveyed by Bud Lee MD to Zak Duff MD, on 08/29/2020 12:25:17 (ET). Electronically Signed: Bud Lee MD at 12:27 EDT , Service support , Brain CT 08/30/20 13:28 IMPRESSION: Stable chronic ischemic and atrophic changes. No acute intracranial abnormality. Electronically Signed: Shaun Farnsworth, at 14:54 EDT Tel , Service support , Medical Necessity - Tobacco Use Smoking Status: Never smoker Tobacco Use: Chew Assessment/Plan All Active Problems (This Medical Record has been edited. Action required.) Ulcer of left lower extremity with fat layer exposed (Resolved) Ulcer of right lower extremity with fat layer exposed (Resolved) Decubitus ulcer of coccyx, stage 2 (Resolved) CVA (cerebral vascular accident) (Acute) Respiratory failure (Acute) Aspirated gastric contents in lower respiratory tract (Acute) ESRD (end stage renal disease) on dialysis (Acute) Septic shock (Resolved) Hyperkalemia (Resolved) Pneumonia (Acute) Urinary tract infection (Resolved) Shock liver (Resolved) Chronic ulcer of left foot with fat layer exposed (Resolved) Ulcer of left foot (Resolved) Diabetic foot infection (Resolved) RECOMMENDATIONS: 1. Continue systemic anticoagulation with Eliquis, given negative stroke work-up. 2. Continue hemodialysis per nephrology recommendations. 3. Okay to discontinue antibiotics from my perspective. 4. The patient is medically stable for transfer out of the intensive care unit. 5. Given the patient's lack of further ICU or pulmonary needs, will sign off. Please call with any additional questions. IMPRESSIONS: 1. Acute respiratory failure Improved. The patient was initially intubated in the emergency department over concerns for airway protection in the setting of suspected CVA. However, further work-up revealed no evidence of stroke. Infectious work-up has been unrevealing thus far. The patient was able to be extubated within 24 hours. It is highly likely that his presenting symptoms may have been metabolic in etiology. He is currently maintaining appropriate oxygen saturations on room air. 2. Encephalopathy Improved. At this time, it is likely that the patient's presenting encephalopathy was likely metabolic in nature, as further work-up was negative for stroke. He does have a history of noncompliance with outpatient dialysis. No infectious etiology has been identified to date. 3. History of coronary artery disease/congestive heart failure/ischemic cardiomyopathy status post ICD/pacemaker Continue baseline cardiac medications. 4. End-stage renal disease on hemodialysis Nephrology following to assist with hemodialysis needs. 5. Anxiety/hyperlipidemia/neuropathy/hypothyroidism/obesity Complicates care, management, recovery and prognosis. Continue home medications as indicated. Physical therapy to work with the patient. This note was generated with [employer] dictation software. It may contain incorrect words, spelling, and punctuation that were not noted in checking the note before signing. Inpatient E&M: 16347 Subs Hosp L3
[2020-08-31 05:45] LABS: Bedside Glucose 249 mg/dL (70-110)
[2020-08-31] MEDS: KETOROLAC TROMETHAMINE 5 ML DROPS 1 ML EACH EYE ×3 (05:48→23:36)
[2020-08-31] MEDS: prednisoLONE eye drops (5 mL) 1 DROP OPTH.BTL 1 DRP EACH EYE ×3 (05:48→23:30)
[2020-08-31] MEDS: Glycerin/Hypromellose/PEG400 15 ml Bottle 1 DRP EACH EYE ×3 (05:49→23:28)
[2020-08-31] MEDS: Levothyroxine 25 MCG TABLET PO (05:49)
[2020-08-31 06:46] LABS: Bedside Glucose 147 mg/dL (70-110)
--- NOTE | 2020-08-31 07:11 | PN_ITS ---
Patient Problems: Active and Suspected Problems (This Medical Record has been edited. Action required.) CVA (cerebral vascular accident) (Acute) Respiratory failure (Acute) Aspirated gastric contents in lower respiratory tract (Acute) ESRD (end stage renal disease) on dialysis (Acute) Reason for Visit: Acute encephalopathy Subjective: Repeat CT of the head obtained came back negative for acute CVA. Patient encephalopathy possibly related to metabolic encephalopathy as a result of end- stage renal disease Objective: GENERAL: cooperative HEENT: Atraumatic; EYES; Anicteric, Normal Conjunctiva NECK; supple, normal thyroid, RESPIRATORY: Diminished to auscultation CARDIOVASCULAR: Regular S1 S2, GI: soft, normoactive bowel sounds, : No Renal angle tenderness; EXTREMITIES: left foot chronic ulcer in surgical dressing MUSCULOSKELETAL: no muscle waisting NEURO: Awake; no lateralizing signs. SKIN: No Rash PSYCH; Flat affect Vitals/I&O's: Vital Signs Temp Pulse Resp BP Pulse Ox 97.8 F 70 16 94/66 95 08/31/20 05:00 08/31/20 05:00 08/31/20 05:00 08/31/20 05:00 08/31/20 05:00 Oxygen Flow Rate (L/min) 2 Oxygen Delivery Method Room Air Weight: 133.6 kg Body Mass Index (BMI) 41.0 Finger Stick Blood Glucose 160 Intake and Output for Last 24 Hours 08/29/20 08/30/20 08/31/20 23:59 23:59 23:59 Intake Total 1481.19 / 1508.72 2077.39 / 2077.39 50 / 50 Output Total 655 / 655 3175 / 3175 0 / 0 Balance 826.19 / 853.72 -1097.61 / -1097.61 50 / 50 Microbiology Past 72 Hours 08/29/20 22:00 Sputum, Tracheal Aspirate Gram Stain - Final 08/29/20 22:00 Sputum, Tracheal Aspirate Respiratory Culture - Preliminary Appears to be normal respiratory abel. Further studies to follow. Laboratory Results 08/30/20 11:27: POC Glucose 205 H 08/30/20 18:01: POC Glucose 197 H 08/30/20 22:47: POC Glucose 249 H 08/31/20 03:25: WBC 7.4, RBC 3.11 L, Hgb 9.2 L, Hct 30.7 L, MCV 98.7 H, MCH 29.6, MCHC 30.0 L, RDW Std Deviation 60.0 H, RDW Coeff of Melissa 17.0 H, Plt Count 171, MPV 9.1, Immature Gran % (Auto) 0.500, Neut % (Auto) 71.5 H, Lymph % (Auto) 14.5 L, [place] % (Auto) 11.2 H, Eos % (Auto) 1.9, Baso % (Auto) 0.4, Absolute Neuts (auto) 5.3, Absolute Lymphs (auto) 1.07, Nucleated RBC % 0 08/31/20 03:25: Sodium 135 L, Potassium 4.0, Chloride 99, Carbon Dioxide 26.0, Anion Gap 10, BUN 82 H, Creatinine 7.22 H, Estim Creat Clear Calc 11.64, Est GFR (MDRD) Af Amer 10 L, Est GFR (MDRD) Non-Af 8 L, BUN/Creatinine Ratio 11.4, Glucose 176 H, Calcium 6.6 L 08/31/20 06:26: POC Glucose 147 H Current Medications Acetaminophen (Tylenol) 650 mg PO Q4H PRN PRN PRN Reason: Pain Score 1-10 Last Admin: 08/30/20 17:58 Dose: 650 mg Documented by: Albuterol Sulfate (Ventolin Aerosols) 2.5 mg INHALATION Q2H PRN PRN PRN Reason: SOB/Wheezing Apixaban (Eliquis) 5 mg PO BID [facility] Last Admin: 08/30/20 21:36 Dose: 5 mg Documented by: Aspirin (Ecotrin) 81 mg PO DAILY [facility] Last Admin: 08/30/20 10:23 Dose: 81 mg Documented by: Atorvastatin Calcium (Lipitor) 80 mg PO QHS [facility] Last Admin: 08/30/20 21:36 Dose: 80 mg Documented by: Dextrose (D50w Syringe) 0 gm IV X1 PRN; Protocol PRN Reason: Hypoglycemia Glucagon () 1 mg IM .X1 PRN PRN Reason: Hypoglycemia Hydralazine HCl (Apresoline Iv) 5 mg IV Q30M PRN PRN Reason: to maintain BP goals Piperacillin Sod/Tazobactam (Sod 3.375 gm/ Sodium Chloride) 50 mls @ 12.5 mls/hr IV Q12 [facility] Last Infusion: 08/31/20 04:22 Dose: Infused Documented by: Sodium Chloride () 250 mls @ 15 mls/hr IV .[id number] PRN PRN Reason: Saline Flush Sodium Chloride () 250 mls @ 15 mls/hr IV .[id number] PRN PRN Reason: Additional IVPB Infusion Insulin Human Lispro (Humalog Kwikpen (Bkc)) 0 unit SC ACHS [facility]; Protocol Last Admin: 08/31/20 06:56 Dose: Not Given Documented by: Ketorolac Tromethamine (Ketorolac Tromethamine) 1 ml EACH EYE TID [facility] Last Admin: 08/31/20 05:48 Dose: 1 ml Documented by: Labetalol HCl (Trandate) 20 mg IV X1 PRN PRN Reason: BLOOD PRESSURE Labetalol HCl (Trandate) 10 - 20 mg IV Q10M PRN PRN PRN Reason: to Maintain BP Goals Levothyroxine Sodium (Synthroid) 25 mcg PO DAILY@0600 [facility] Last Admin: 08/31/20 05:49 Dose: 25 mcg Documented by: Ondansetron HCl (Zofran) 4 mg IV Q8H PRN PRN PRN Reason: NAUSEA/VOMITING Last Admin: 08/30/20 05:30 Dose: 4 mg Documented by: Prednisolone Acetate (Pred Forte Eye Drops (5 Ml)) 1 drop EACH EYE TID [facility] Last Admin: 08/31/20 05:48 Dose: 1 drop Documented by: Sodium Chloride () 10 - 40 ml IV UD PRN PRN Reason: SALINE FLUSH Last Admin: 08/30/20 05:31 Dose: 30 ml Documented by: STROKE Vital Signs/Narrative: Vital Signs Temp Pulse Resp BP Pulse Ox 08/31/20 05:00 97.8 F 70 16 94/66 95 08/31/20 04:00 70 08/31/20 03:56 70 16 95 Medical Necessity - Tobacco Use Smoking Status: Never smoker Tobacco Use: Chew Assessment/Plan All Active Problems (This Medical Record has been edited. Action required.) Ulcer of left lower extremity with fat layer exposed (Resolved) Ulcer of right lower extremity with fat layer exposed (Resolved) Decubitus ulcer of coccyx, stage 2 (Resolved) CVA (cerebral vascular accident) (Acute) Respiratory failure (Acute) Aspirated gastric contents in lower respiratory tract (Acute) ESRD (end stage renal disease) on dialysis (Acute) Septic shock (Resolved) Hyperkalemia (Resolved) Pneumonia (Acute) Urinary tract infection (Resolved) Shock liver (Resolved) Chronic ulcer of left foot with fat layer exposed (Resolved) Ulcer of left foot (Resolved) Diabetic foot infection (Resolved) Patient is a 60-year-old gentleman with multiple medical comorbidities including end-stage renal disease on hemodialysis who was brought to the emergency department on suspicion of an acute CVA. His NIH was 20 on admission patient was however not deemed to be a TPA candidate since he is on Eliquis 1. Encephalopathy secondary to metabolic encephalopathy as a result of end- stage renal disease -Admitted to the intensive care unit. Patient started on antiplatelet therapy with aspirin per rectum. Patient did not receive TPA since patient is on Eliquis. As part of his management 2D echo was ordered and consultation placed to neurology -08/30/2020. Patient extubated of the vent this a.m. He however does not appear to have any neurological deficit. -08/31/[address] did not show any acute CVA. It was felt patient altered mental status was possibly related to metabolic encephalopathy. Patient continues to improve clinically plan is for patient to be transferred from ICU to PCU 2. Acute hypoxic respiratory failure ?Secondary to above. Patient was intubated in the ED to protect his airway. Consult placed to pulmonary medicine for vent management -08/30/2020;was weaned off the vent on the morning of 08/30/2020 3. Suspected aspiration pneumonitis ?Patient NG tube returned feculent material patient started on Zosyn 4. Coronary artery disease ?Previous CABG 5. Ischemic cardiomyopathy -status post AICD/pacemaker placement . Diabetes mellitus type 2 ?With complications including diabetic polyneuropathy, diabetic nephropathy resulting in end-stage renal disease. Home regimen held in view of patient being on the vent please on Accu-Cheks 6 with sliding scale coverage 7. End-stage renal disease ?Secondary to diabetic nephropathy. Patient is on hemodialysis on Tuesdays and Saturdays consult placed to nephrology for dialysis orders 8. Hypothyroidism ?On levothyroxine 9. Chronic left lower extremity wound ?Consult placed to care nurse 10. Anemia - Secondary to chronic disorder?anemia of end-stage renal disease monitoring H&H and transfuse if patient becomes symptomatic or hemoglobin falls below 7 11. DVT prophylaxis ?Eliquis resumed Inpatient E&M: 07805 Subs Hosp L2
--- NOTE | 2020-08-31 09:56 | CM.UR ---
Participated in interdisciplinary rounds this am. Patient is alert. Will be moved to PCU level of care. discharge plan is home with home care. Daina Dee RN, CCM.
[2020-08-31] MEDS: APIXABAN 5 MG TABLET PO ×2 (11:00→23:29)
[2020-08-31] MEDS: Aspirin E.C. 81 MG Tablet PO (11:00)
[2020-08-31] MEDS: 0.9% Saline Lock 10 ML Syringe IV (11:08)
[2020-08-31] MEDS: Insulin Lispro 100 UNIT/ML INSULN.PEN SC ×2 (12:24→23:29)
[2020-08-31 12:26] LABS: Bedside Glucose 173 mg/dL (70-110)
--- NOTE | 2020-08-31 12:53 | ED.DCSUM_ITS ---
- ER Visit Summary Date of Service: 08/31/20 Chief Complaint: [Speech difficulty and possible stroke] History of Present Illness: The patient is a 60 M [presents to the emergency department from dialysis with acute onset of speech difficulty and suspected right-sided weakness. Patient had been through about half his dialysis at the time. Patient has history of CHF, hypertension, peripheral vascular disease, chronic renal failure, and hypothyroidism. Patient has a difficult time giving history because of his dysarthria. Unable to do review of symptoms.] Patient on Eliquis and unknown when last dose was. Physical Examination: [HEENT-PERRLA, EOMI. Cranial nerves II through XII grossly intact. TMs clear. Mucous membranes moist. No adenopathy. Cardiovascular-regular rate and rhythm without murmur or ectopy Lungs-clear to auscultation, chest wall stable without crepitus or subcu emphysema Abdomen-normoactive bowel sounds, soft, nontender, no rebound or rigidity, no peritoneal signs. Neuro exam-on arrival patient with dysarthria and mild right-sided facial droop. Patient does not move legs. He seems to have some subtle weakness of the right arm compared to the left. NIH stroke scale initially was a 9. Extremities-intact ?4, normal range of motion, normal pulses, atraumatic] Test Results: [CT scan of the brain without contrast showed nothing acute. EKG obtained arrival showed a paced rhythm with a ventricular rate of 70 bpm. CBC with external organ of 8.3, hemoglobin 9.8, hematocrit 33, platelets 174. Chemistries unremarkable. BUN was 82 and creatinine 7.6. INR was 1.4. Troponin was 0.020. CTA of the head and neck obtained after he was premedicated with Solu-Medrol and Benadryl which did not show any large occlusions. Patient was noted to have some lymph nodes within his chest. Chest x-ray really showed nothing acute.] Emergency Department Course and Treatment: [IV line established on arrival. Patient placed on monitor tech. After return from CT his respiratory status declined and his O2 saturation dropped into the 80s. Patient appeared to have increased dyspnea and difficulty handling secretions. Decision was made to intubate patient to protect his airway. Patient was medicated with etomidate as well as succinylcholine. 7.5 ET tube was easily placed on first attempt. Patient was started on a propofol drip. Patient had already been evaluated by [facility] neurology via teleconference and recommendation was that he is not a TPA candidate due to the Eliquis. I discussed with family and made his son aware that he is not a TPA candidate.] Treatment Plan: [Admit to ICU] Disposition: [Admit] Impression: [Acute stroke Respiratory failure Intubation by ER physician Chronic renal failure] This note was generated with [employer] dictation software. It may contain incorrect words, spelling, and punctuation that were not noted in review of the chart prior to signing ED Disposition - Plan for ED Patient: Disposition: Acute Care Hospital [facility]
--- NOTE | 2020-08-31 17:27 | PN.RENAL_ITS ---
Patient Problems: Active and Suspected Problems (This Medical Record has been edited. Action required.) CVA (cerebral vascular accident) (Acute) Respiratory failure (Acute) Aspirated gastric contents in lower respiratory tract (Acute) ESRD (end stage renal disease) on dialysis (Acute) Subjective: no new complaints - Physical Exam Vitals/I&O's: Vital Signs Temp Pulse Resp BP Pulse Ox 97.5 F L 70 18 123/65 H 93 08/31/20 16:45 08/31/20 16:45 08/31/20 16:45 08/31/20 16:45 08/31/20 16:45 Oxygen Flow Rate (L/min) 2 Oxygen Delivery Method Room Air Weight: 133.6 kg Body Mass Index (BMI) 41.0 Finger Stick Blood Glucose 160 Intake and Output for Last 24 Hours 08/29/20 08/30/20 08/31/20 23:59 23:59 23:59 Intake Total 1481.19 / 1508.72 2077.39 / 2077.39 340 / 340 Output Total 655 / 655 3175 / 3175 0 / 0 Balance 826.19 / 853.72 -1097.61 / -1097.61 340 / 340 General: Alert, Oriented x3, Cooperative HEENT: Atraumatic, PERRLA, EOMI, Normocephalic Neck: Supple, No JVD, Negative Carotid Bruits Lungs: Clear to auscultation, Normal air movement Cardiovascular: Regular rate, No murmurs Abdomen: Bowel Sounds Present, Soft, Non Tender Extremities: No edema, Capillary Refill Less than 3 Seconds Skin: No rashes, No breakdown Musculoskeletal: No Tenderness to Palpation of Joints or Extremities Neurological: Cranial nerves II-XII grossly intact Psych/Mental Status: Normal Affect, Appropriate Microbiology Past 72 Hours 08/29/20 22:00 Sputum, Tracheal Aspirate Gram Stain - Final 08/29/20 22:00 Sputum, Tracheal Aspirate Respiratory Culture - Final Mixed normal respiratory abel. No Streptococcus pneumoniae, beta-hemolytic Streptococcus or Staphylococcus aureus isolated. Laboratory Results 08/30/20 18:01: POC Glucose 197 H 08/30/20 22:47: POC Glucose 249 H 08/31/20 03:25: WBC 7.4, RBC 3.11 L, Hgb 9.2 L, Hct 30.7 L, MCV 98.7 H, MCH 29.6, MCHC 30.0 L, RDW Std Deviation 60.0 H, RDW Coeff of Melissa 17.0 H, Plt Count 171, MPV 9.1, Immature Gran % (Auto) 0.500, Neut % (Auto) 71.5 H, Lymph % (Auto) 14.5 L, Glynn % (Auto) 11.2 H, Eos % (Auto) 1.9, Baso % (Auto) 0.4, Absolute Neuts (auto) 5.3, Absolute Lymphs (auto) 1.07, Nucleated RBC % 0 08/31/20 03:25: Sodium 135 L, Potassium 4.0, Chloride 99, Carbon Dioxide 26.0, Anion Gap 10, BUN 82 H, Creatinine 7.22 H, Estim Creat Clear Calc 11.64, Est GFR (MDRD) Af Amer 10 L, Est GFR (MDRD) Non-Af 8 L, BUN/Creatinine Ratio 11.4, Glucose 176 H, Calcium 6.6 L 08/31/20 06:26: POC Glucose 147 H 08/31/20 12:19: POC Glucose 173 H Current Medications Acetaminophen (Tylenol) 650 mg PO Q4H PRN PRN PRN Reason: Pain Score 1-10 Last Admin: 08/30/20 17:58 Dose: 650 mg Documented by: Albuterol Sulfate (Ventolin Aerosols) 2.5 mg INHALATION Q2H PRN PRN PRN Reason: SOB/Wheezing Apixaban (Eliquis) 5 mg PO BID [facility] Last Admin: 08/31/20 11:00 Dose: 5 mg Documented by: Aspirin (Ecotrin) 81 mg PO DAILY [facility] Last Admin: 08/31/20 11:00 Dose: 81 mg Documented by: Atorvastatin Calcium (Lipitor) 80 mg PO QHS [facility] Last Admin: 08/30/20 21:36 Dose: 80 mg Documented by: Dextrose (D50w Syringe) 0 gm IV X1 PRN; Protocol PRN Reason: Hypoglycemia Glucagon () 1 mg IM .X1 PRN PRN Reason: Hypoglycemia Hydralazine HCl (Apresoline Iv) 5 mg IV Q30M PRN PRN Reason: to maintain BP goals Piperacillin Sod/Tazobactam (Sod 3.375 gm/ Sodium Chloride) 50 mls @ 12.5 mls/hr IV Q12 [facility] Last Infusion: 08/31/20 16:24 Dose: Infused Documented by: Sodium Chloride () 250 mls @ 15 mls/hr IV .[id number] PRN PRN Reason: Saline Flush Sodium Chloride () 250 mls @ 15 mls/hr IV .[id number] PRN PRN Reason: Additional IVPB Infusion Insulin Human Lispro (Humalog Kwikpen (Bkc)) 0 unit SC ACHS [facility]; Protocol Last Admin: 08/31/20 17:20 Dose: Not Given Documented by: Ketorolac Tromethamine (Ketorolac Tromethamine) 1 ml EACH EYE TID [facility] Last Admin: 08/31/20 14:10 Dose: 1 ml Documented by: Labetalol HCl (Trandate) 20 mg IV X1 PRN PRN Reason: BLOOD PRESSURE Labetalol HCl (Trandate) 10 - 20 mg IV Q10M PRN PRN PRN Reason: to Maintain BP Goals Levothyroxine Sodium (Synthroid) 25 mcg PO DAILY@0600 [facility] Last Admin: 08/31/20 05:49 Dose: 25 mcg Documented by: Ondansetron HCl (Zofran) 4 mg IV Q8H PRN PRN PRN Reason: NAUSEA/VOMITING Last Admin: 08/30/20 05:30 Dose: 4 mg Documented by: Prednisolone Acetate (Pred Forte Eye Drops (5 Ml)) 1 drop EACH EYE TID [facility] Last Admin: 08/31/20 14:10 Dose: 1 drop Documented by: Sodium Chloride () 10 - 40 ml IV UD PRN PRN Reason: SALINE FLUSH Last Admin: 08/31/20 11:08 Dose: 10 ml Documented by: Medical Necessity - Tobacco Use Smoking Status: Never smoker Tobacco Use: Chew Assessment/Plan All Active Problems (This Medical Record has been edited. Action required.) Ulcer of left lower extremity with fat layer exposed (Resolved) Ulcer of right lower extremity with fat layer exposed (Resolved) Decubitus ulcer of coccyx, stage 2 (Resolved) CVA (cerebral vascular accident) (Acute) Respiratory failure (Acute) Aspirated gastric contents in lower respiratory tract (Acute) ESRD (end stage renal disease) on dialysis (Acute) Septic shock (Resolved) Hyperkalemia (Resolved) Pneumonia (Acute) Urinary tract infection (Resolved) Shock liver (Resolved) Chronic ulcer of left foot with fat layer exposed (Resolved) Ulcer of left foot (Resolved) Diabetic foot infection (Resolved) End-stage renal disease. Dialysis yesterday. I called his home dialysis unit. Apparently he has been noncompliant and has been coming into dialysis 1-2 times a week. As of yesterday he was 14 kg above his dry weight. In general runs high potassium and phosphate. HD today. seen on HD Altered mental status. No acute evidence of stroke. BUN is 109 after dialysis. I suspect he might have had some component of dialysis disequilibrium syndrome yesterday due to high metabolites. Hyperkalemia. better Hyperphosphatemia. resume binders ok to dc from my end
[2020-08-31 17:30] LABS: Bedside Glucose 181 mg/dL (70-110)
[2020-08-31] MEDS: Heparin 10,000 UNITS/10 ML Vial IV (19:41)
--- NOTE | 2020-08-31 20:06 | DIALYSIS ---
Hemodialysis x 4 hours. -3200 ml off. stable t/o. CVC required to be ran reversed. CVC closed with heparin to each lumen fill volume. Report to PEE AMATO Agustin
[2020-08-31] MEDS: Atorvastatin Calcium 80 MG Tablet PO (23:30)
[2020-08-31] MEDS: Acetaminophen 325 MG Tablet 650 MG PO (23:34)
[2020-09-01 01:01] LABS: Bedside Glucose 186 mg/dL (70-110)
[2020-09-01 02:57] VITALS: BMI 41.0
[2020-09-01 03:00] VITALS: PULSE 70
[2020-09-01 04:45] VITALS: BP 128/74; PULSE 70; RESP 18; TEMP 37.1; O2SAT 96
[2020-09-01 05:23] LABS: Absolute Lymphocyte Count 0.98 X10^3/uL (0.83-4.51); Absolute Neutrophil Count 5.2 X10^3/uL (2.0-7.7); Basophil# 0.04 X10^3/uL; Basophil% 0.5 % (0-1); Eosinophil# 0.26 X10^3/uL; Eosinophils% 3.4 % (0-5); Hematocrit 33.1 % (40-54); Hemoglobin 9.7 g/dL (13.0-16.5); Lymphocyte # 0.98 X10^3/ul (4.0); Mean Corp Hgb Conc 29.3 g/dL (32-36); Mean Corpuscular Hgb 29.2 pg (27.0-32.0); Mean Corpuscular Volume 99.7 fL (80-94); Mean Platelet Vol. 9.3 fl (6.2-12.0); Monocyte# 1.03 X10^3/uL; Monocyte% 13.6 % (0-10); NRBC Flagged by Analyzer 0 % (0-5); Neutrophil # 5.17 X10^3/uL (2.7-7.7); Neutrophil % 68.4 % (47-70); Platelet Count 168 K/mm3 (150-450); RBC Distribution Width CV 16.9 % (11.6-14.6); RBC Distribution Width SD 61.2 fl (35.1-43.9); Red Blood Count 3.32 M/mm3 (4.6-6.2); White Blood Count 7.6 K/mm3 (4.4-11.0)
[2020-09-01 05:46] LABS: Anion Gap 9 (5-15); BUN 47 mg/dL (7-18); BUN/Creat Ratio 8.7 RATIO (10-20); Calcium,Total 6.8 mg/dL (8.5-10.1); Chloride 98 mmol/L (98-107); Creatinine, Serum 5.41 mg/dL (0.70-1.30); EST Glomerular Filtration Rate 11 mL/min (>60); Est Glom Filt Rate - Afr Amer 14 mL/min (>60); Estimated Creatinine Clearance 15.54 ml/min; Glucose 146 mg/dL (74-106); Potassium 3.4 mmol/L (3.5-5.1); Sodium Level 135 mmol/L (136-145)
[2020-09-01] MEDS: Glycerin/Hypromellose/PEG400 15 ml Bottle 1 DRP EACH EYE (06:32)
[2020-09-01] MEDS: prednisoLONE eye drops (5 mL) 1 DROP OPTH.BTL 1 DRP EACH EYE (06:34)
[2020-09-01] MEDS: KETOROLAC TROMETHAMINE 5 ML DROPS 1 ML EACH EYE (06:34)
[2020-09-01] MEDS: Levothyroxine 25 MCG TABLET PO (06:35)
[2020-09-01 07:01] LABS: Bedside Glucose 140 mg/dL (70-110)
[2020-09-01 07:06] VITALS: O2SAT 91
--- NOTE | 2020-09-01 07:16 | PCM.DC ---
- Discharge Diagnoses Current Active Problems: Current Active and Chronic Problems (This Medical Record has been edited. Action required.) CVA (cerebral vascular accident) (Acute) Respiratory failure (Acute) Aspirated gastric contents in lower respiratory tract (Acute) ESRD (end stage renal disease) on dialysis (Acute) You will use the following diet at home:: Renal (restricted protein/sodium) Allergies/Adverse Reactions: Allergies CONTRAST DYE Adverse Reaction (Uncoded 08/29/20 10:42) Other Medications to take at Discharge Aspirin [Adult Low Dose Aspirin EC] 81 mg PO DAILY 08/28/15 Insulin Aspart [Novolog Flexpen] 45 units SC TIDCM 11/14/15 Apixaban [Eliquis] 5 mg PO BID 11/03/19 Midodrine HCl 10 mg PO DAILY 11/03/19 Atorvastatin Calcium [Lipitor] 40 mg PO QHS 08/29/20 Carvedilol 3.125 mg PO BID 08/29/20 Gabapentin [Neurontin] 300 mg PO BID 08/29/20 Ketorolac Tromethamine/Pf [Acuvail 0.45% Ophth Solution] 1 drop EACH EYE TID 08/29/20 Levothyroxine [Synthroid] 25 mcg PO DAILY 08/29/20 Prednisolone Acetate/Pf [Prednisolone Acet 1% Eye Drop] 1 drop EACH EYE TID 08/29/20 Propylene Glycol/Peg 400 [Systane Gel Eye Drops] 1 drop EACH EYE TID 08/29/20 Amoxicillin/Potassium Clav [Augmentin 875-125 Tablet] 1 ea PO BID #14 tab 09/01/20 The following prescriptions were given: Amoxicillin/Potassium Clav [Augmentin 875-125 Tablet] 1 ea PO BID #14 tab Transmission Status: Pending to [id number] Primary Care Physician: Nati Langston MD [Primary Care Provider] - Please follow up with your Primary Care Physician in: IN 1 WEEK Test Results: Test results from this visit will be discussed in further detail at your follow-up appointment, if applicable. Proposed Discharge Date: 09/01/20
--- NOTE | 2020-09-01 07:17 | DS.PCM_ITS ---
Discharge Date and Diagnosis - Problem List Patient Problems: Active and Suspected Problems (This Medical Record has been edited. Action required.) CVA (cerebral vascular accident) (Acute) Respiratory failure (Acute) Aspirated gastric contents in lower respiratory tract (Acute) ESRD (end stage renal disease) on dialysis (Acute) Date of Admission: 08/29/20 Date of Discharge: 09/01/20 - Primary Discharge Diagnosis Acute Problems: Active Problems (This Medical Record has been edited. Action required.) CVA (cerebral vascular accident) (Acute) Respiratory failure (Acute) Aspirated gastric contents in lower respiratory tract (Acute) ESRD (end stage renal disease) on dialysis (Acute) - Secondary Discharge Diagnosis Chronic Problems: Chronic Problems (This Medical Record has been edited. Action required.) Renal failure (Chronic) Anemia (Chronic) Equinus contracture of left ankle (Chronic) Hammer toe of left foot (Chronic) Diabetic neuropathy (Chronic) CHF (congestive heart failure) (Chronic) Infected skin ulcer with fat layer exposed (Chronic) Leg wound, left (Chronic) Ulcer of left foot (Chronic) Diabetic foot ulcer associated with secondary diabetes mellitus (Chronic) Swelling of lower extremity (Chronic) Hyperlipidemia (Chronic) Hypertension (Chronic) Diabetes mellitus (Chronic) History of [place] (myocardial infarction) (Chronic) Coronary artery arteriosclerosis (Chronic) Venous insufficiency of both lower extremities (Chronic) Edema, lower extremity (Chronic) Peripheral vascular disease (Chronic) Hospital Course and Treatment Imaging Results: Clinical Impression(s) from Imaging Studies Brain CT 08/29/20 10:25 IMPRESSION: 1. Normal unenhanced CT scan of the brain at this time. 2. Total ASPECTS score: 10. N.B. : The above information has been verbally conveyed by Bud Lee MD to Dr. Sherin MD, on 08/29/2020 10:39:09 (ET). Electronically Signed: Bud Lee MD at 10:39 EDT , Service support , ADDENDUM: 08/29/20 1046 IMPRESSION: 1. Normal unenhanced CT scan of the brain at this time. 2. Total ASPECTS score: 08/31. N.B. : The above information has been verbally conveyed by Bud Lee MD to Dr. Sherin MD, on 08/29/2020 10:39:09 (ET). Electronically Signed: Bud Lee MD at 10:39 EDT , Service support , Chest X-Ray 08/29/20 11:20 IMPRESSION: 1. Improving subsegmental atelectases in both lungs. 2. No acute cardiopulmonary pathology. 3. No significant interval change when compared to 11/03/2019. Electronically Signed: Bud Lee MD at 12:01 EDT , Service support , Head/Neck CTA 08/29/20 11:50 IMPRESSION: 1. No significant vaso-occlusive disease of the anterior and posterior intracranial circulation. 2. 60% stenosis of the right internal carotid artery bulb origin due to calcified plaques. The remainder of the right cervical internal carotid artery is widely patent. 3. Widely patent bilateral common carotid arteries. 4. Widely patent vertebral arteries, left is dominant. 5. Widely patent aortic arch and origins of the great vessels. 6. No more than 50% stenosis at the subclavian origin of the dominant left vertebral artery due to calcified plaque and noncalcified plaque distal to the origin of the intrathoracic segment. The cervical segments of the dominant left vertebral artery are widely patent. 7. Incidentally visualized are several prominent lymph nodes in the right paratracheal space, the anterior carinal space and adjacent the transverse aorta. I am uncertain whether these are benign reactive nodes or not. If lymphoma is a clinical consideration, CT chest may be helpful for further evaluation. N.B. : The above information has been verbally conveyed by Bud Lee MD to Zak Duff MD, on 08/29/2020 12:25:17 (ET). Electronically Signed: Bud Lee MD at 12:27 EDT , Service support , ADDENDUM: 08/29/20 1234 IMPRESSION: 1. No significant vaso-occlusive disease of the anterior and posterior intracranial circulation. 2. 60% stenosis of the right internal carotid artery bulb origin due to calcified plaques. The remainder of the right cervical internal carotid artery is widely patent. 3. Widely patent bilateral common carotid arteries. 4. Widely patent vertebral arteries, left is dominant. 5. Widely patent aortic arch and origins of the great vessels. 6. No more than 50% stenosis at the subclavian origin of the dominant left vertebral artery due to calcified plaque and noncalcified plaque distal to the origin of the intrathoracic segment. The cervical segments of the dominant left vertebral artery are widely patent. 7. Incidentally visualized are several prominent lymph nodes in the right paratracheal space, the anterior carinal space and adjacent the transverse aorta. I am uncertain whether these are benign reactive nodes or not. If lymphoma is a clinical consideration, CT chest may be helpful for further evaluation. N.B. : The above information has been verbally conveyed by Bud Lee MD to Zak Duff MD, on 08/29/2020 12:25:17 (ET). Electronically Signed: Bud Lee MD at 12:27 EDT , Service support , Brain CT 08/30/20 13:28 IMPRESSION: Stable chronic ischemic and atrophic changes. No acute intracranial abnormality. Electronically Signed: Shaun Farnsworth at 14:54 EDT Tel , Service support , 2D echo The estimated ejection fraction is 50 %. Unable to assess diastolic dysfunction. [place] : Hypokinetic. Trivial mitral valve insufficiency. Consultations 08/30/20 09:34 Consult: Onc/Wound/astrophysics teacher Routine Comment: Operations: None Summary of Care Provided: Patient is a 60-year-old gentleman with multiple medical comorbidities including end-stage renal disease on hemodialysis who was brought to the emergency department on suspicion of an acute CVA. His NIH was 20 on admission patient was however not deemed to be a TPA candidate since he is on Eliquis 1. Encephalopathy secondary to metabolic encephalopathy as a result of end- stage renal disease dysequilibrium. -Admitted to the intensive care unit. Patient started on antiplatelet therapy with aspirin per rectum. Patient did not receive TPA since patient is on Eliquis. As part of his management 2D echo was ordered and consultation placed to neurology -08/30/2020. Patient extubated of the vent this a.m. He however does not appear to have any neurological deficit. -08/31/[address] did not show any acute CVA. It was felt patient altered mental status was possibly related to metabolic encephalopathy. Patient continues to improve clinically plan is for patient to be transferred from ICU to PCU -09/01/2020. Patient condition did remain stable decision was made to discharge patient home. Patient was counseled on the need to be compliant with dialysis sessions. 2. Acute hypoxic respiratory failure ?Secondary to above. Patient was intubated in the ED to protect his airway. Consult placed to pulmonary medicine for vent management -08/30/2020;was weaned off the vent on the morning of 08/30/2020 3. Suspected aspiration pneumonitis ?Patient NG tube returned feculent material patient started on Zosyn ?09/01/2020. Prescription was written for Augmentin on discharge 4. Coronary artery disease ?Previous CABG 5. Ischemic cardiomyopathy -status post AICD/pacemaker placement . Diabetes mellitus type 2 ?With complications including diabetic polyneuropathy, diabetic nephropathy resulting in end-stage renal disease. Home regimen held in view of patient being on the vent please on Accu-Cheks 6 with sliding scale coverage 7. End-stage renal disease ?Secondary to diabetic nephropathy. Patient is on hemodialysis on Tuesdays and Saturdays consult placed to nephrology for dialysis orders 8. Hypothyroidism ?On levothyroxine 9. Chronic left lower extremity wound ?Consult placed to care nurse 10. Anemia - Secondary to chronic disorder?anemia of end-stage renal disease monitoring H&H and transfuse if patient becomes symptomatic or hemoglobin falls below 7 11. DVT prophylaxis ?Eliquis resumed Patient Problems: Active and Suspected Problems (This Medical Record has been edited. Action required.) CVA (cerebral vascular accident) (Acute) Respiratory failure (Acute) Aspirated gastric contents in lower respiratory tract (Acute) ESRD (end stage renal disease) on dialysis (Acute) Objective: GENERAL: cooperative HEENT: Atraumatic; EYES; Anicteric, Normal Conjunctiva NECK; supple, normal thyroid, RESPIRATORY: Diminished to auscultation CARDIOVASCULAR: Regular S1 S2, GI: soft, normoactive bowel sounds, : No Renal angle tenderness; EXTREMITIES: left foot chronic ulcer in surgical dressing MUSCULOSKELETAL: no muscle waisting NEURO: Awake; no lateralizing signs. SKIN: No Rash PSYCH; Flat affect - Physical Exam Vitals/I&O's: Vital Signs Temp Pulse Resp BP Pulse Ox 98.8 F 70 18 128/74 H 96 09/01/20 04:45 09/01/20 04:45 09/01/20 04:45 09/01/20 04:45 09/01/20 04:45 Oxygen Flow Rate (L/min) 2 Oxygen Delivery Method Room Air Weight: 126.9 kg Body Mass Index (BMI) 41.0 Finger Stick Blood Glucose 160 Intake and Output for Last 24 Hours 08/30/20 08/31/20 09/01/20 23:59 23:59 23:59 Intake Total 2077.39 / 2077.39 440 / 440 150 / 150 Output Total 3175 / 3175 3200 / 3200 Balance -1097.61 / -1097.61 -2760 / -2760 150 / 150 Microbiology Past 72 Hours 08/29/20 22:00 Sputum, Tracheal Aspirate Gram Stain - Final 08/29/20 22:00 Sputum, Tracheal Aspirate Respiratory Culture - Final Mixed normal respiratory abel. No Streptococcus pneumoniae, beta-hemolytic Streptococcus or Staphylococcus aureus isolated. Laboratory Results 08/31/20 12:19: POC Glucose 173 H 08/31/20 16:59: POC Glucose 181 H 08/31/20 23:25: POC Glucose 186 H 09/01/20 04:50: WBC 7.6, RBC 3.32 L, Hgb 9.7 L, Hct 33.1 L, MCV 99.7 H, MCH 29.2, MCHC 29.3 L, RDW Std Deviation 61.2 H, RDW Coeff of Melissa 16.9 H, Plt Count 168, MPV 9.3, Immature Gran % (Auto) 1.100 H, Neut % (Auto) 68.4, Lymph % (Auto) 13.0 L, [place] % (Auto) 13.6 H, Eos % (Auto) 3.4, Baso % (Auto) 0.5, Absolute Neuts (auto) 5.2, Absolute Lymphs (auto) 0.98, Nucleated RBC % 0 09/01/20 04:50: Sodium 135 L, Potassium 3.4 L, Chloride 98, Carbon Dioxide 28.0, Anion Gap 9, BUN 47 H, Creatinine 5.41 H, Estim Creat Clear Calc 15.54, Est GFR (MDRD) Af Amer 14 L, Est GFR (MDRD) Non-Af 11 L, BUN/Creatinine Ratio 8.7 L, Glucose 146 H, Calcium 6.8 L 09/01/20 06:31: POC Glucose 140 H Current Medications Acetaminophen (Tylenol) 650 mg PO Q4H PRN PRN PRN Reason: Pain Score 1-10 Last Admin: 08/31/20 23:34 Dose: 650 mg Documented by: Albuterol Sulfate (Ventolin Aerosols) 2.5 mg INHALATION Q2H PRN PRN PRN Reason: SOB/Wheezing Apixaban (Eliquis) 5 mg PO BID [facility] Last Admin: 08/31/20 23:29 Dose: 5 mg Documented by: Aspirin (Ecotrin) 81 mg PO DAILY [facility] Last Admin: 08/31/20 11:00 Dose: 81 mg Documented by: Atorvastatin Calcium (Lipitor) 80 mg PO QHS [facility] Last Admin: 08/31/20 23:30 Dose: 80 mg Documented by: Dextrose (D50w Syringe) 0 gm IV X1 PRN; Protocol PRN Reason: Hypoglycemia Glucagon () 1 mg IM .X1 PRN PRN Reason: Hypoglycemia Hydralazine HCl (Apresoline Iv) 5 mg IV Q30M PRN PRN Reason: to maintain BP goals Piperacillin Sod/Tazobactam (Sod 3.375 gm/ Sodium Chloride) 50 mls @ 12.5 mls/hr IV Q12 [facility] Last Infusion: 09/01/20 03:32 Dose: Infused Documented by: Sodium Chloride () 250 mls @ 15 mls/hr IV .[id number] PRN PRN Reason: Saline Flush Sodium Chloride () 250 mls @ 15 mls/hr IV .[id number] PRN PRN Reason: Additional IVPB Infusion Insulin Human Lispro (Humalog Kwikpen (Bkc)) 0 unit SC ACHS [facility]; Protocol Last Admin: 09/01/20 06:35 Dose: Not Given Documented by: Ketorolac Tromethamine (Ketorolac Tromethamine) 1 ml EACH EYE TID [facility] Last Admin: 09/01/20 06:34 Dose: 1 ml Documented by: Labetalol HCl (Trandate) 20 mg IV X1 PRN PRN Reason: BLOOD PRESSURE Labetalol HCl (Trandate) 10 - 20 mg IV Q10M PRN PRN PRN Reason: to Maintain BP Goals Levothyroxine Sodium (Synthroid) 25 mcg PO DAILY@0600 [facility] Last Admin: 09/01/20 06:35 Dose: 25 mcg Documented by: Ondansetron HCl (Zofran) 4 mg IV Q8H PRN PRN PRN Reason: NAUSEA/VOMITING Last Admin: 08/30/20 05:30 Dose: 4 mg Documented by: Prednisolone Acetate (Pred Forte Eye Drops (5 Ml)) 1 drop EACH EYE TID [facility] Last Admin: 09/01/20 06:34 Dose: 1 drop Documented by: Sodium Chloride () 10 - 40 ml IV UD PRN PRN Reason: SALINE FLUSH Last Admin: 08/31/20 11:08 Dose: 10 ml Documented by: Discharge Diet: Renal Diet Home Medications: Medications to take at Discharge Aspirin [Adult Low Dose Aspirin EC] 81 mg PO DAILY 08/28/15 Insulin Aspart [Novolog Flexpen] 45 units SC TIDCM 11/14/15 Apixaban [Eliquis] 5 mg PO BID 11/03/19 Midodrine HCl 10 mg PO DAILY 11/03/19 Atorvastatin Calcium [Lipitor] 40 mg PO QHS 08/29/20 Carvedilol 3.125 mg PO BID 08/29/20 Gabapentin [Neurontin] 300 mg PO BID 08/29/20 Ketorolac Tromethamine/Pf [Acuvail 0.45% Ophth Solution] 1 drop EACH EYE TID 08/29/20 Levothyroxine [Synthroid] 25 mcg PO DAILY 08/29/20 Prednisolone Acetate/Pf [Prednisolone Acet 1% Eye Drop] 1 drop EACH EYE TID 08/29/20 Propylene Glycol/Peg 400 [Systane Gel Eye Drops] 1 drop EACH EYE TID 08/29/20 Amoxicillin/Potassium Clav [Augmentin 875-125 Tablet] 1 ea PO BID #14 tab 09/01/20 Following Prescriptions Were Given to Patient: Amoxicillin/Potassium Clav [Augmentin 875-125 Tablet] 1 ea PO BID #14 tab Transmission Status: Received by [id number] Primary Care Physician: Nati Langston MD [Primary Care Provider] - Please follow up with your Primary Care Physician in: IN 1 WEEK Disposition: Home Minutes spent on discharge:: 35 Patient Condition:: Stable Medical Necessity - Tobacco Use Smoking Status: Never smoker Tobacco Use: Chew Meaningful Use Info Meaningful Use Diagnoses (Choose all that apply): None applicable Inpatient E&M: 50373 Disch Hosp
[2020-09-01 07:33] VITALS: PULSE 70
--- NOTE | 2020-09-01 09:33 | PN.RENAL_ITS ---
Patient Problems: Active and Suspected Problems (This Medical Record has been edited. Action required.) CVA (cerebral vascular accident) (Acute) Respiratory failure (Acute) Aspirated gastric contents in lower respiratory tract (Acute) ESRD (end stage renal disease) on dialysis (Acute) Subjective: no new complaints - Physical Exam Vitals/I&O's: Vital Signs Temp Pulse Resp BP Pulse Ox 98.8 F 70 18 128/74 H 91 09/01/20 04:45 09/01/20 04:45 09/01/20 04:45 09/01/20 04:45 09/01/20 07:06 Oxygen Flow Rate (L/min) 2 Oxygen Delivery Method Room Air Weight: 126.9 kg Body Mass Index (BMI) 41.0 Finger Stick Blood Glucose 160 Intake and Output for Last 24 Hours 08/30/20 08/31/20 09/01/20 23:59 23:59 23:59 Intake Total 2077.39 / 2077.39 440 / 440 150 / 150 Output Total 3175 / 3175 3200 / 3200 Balance -1097.61 / -1097.61 -2760 / -2760 150 / 150 General: Alert, Oriented x3, Cooperative HEENT: Atraumatic, PERRLA, EOMI, Normocephalic Neck: Supple, No JVD, Negative Carotid Bruits Lungs: Clear to auscultation, Normal air movement Cardiovascular: Regular rate, No murmurs Abdomen: Bowel Sounds Present, Soft, Non Tender Extremities: No edema, Capillary Refill Less than 3 Seconds Skin: No rashes, No breakdown Musculoskeletal: No Tenderness to Palpation of Joints or Extremities Neurological: Cranial nerves II-XII grossly intact Psych/Mental Status: Normal Affect, Appropriate Microbiology Past 72 Hours 08/29/20 22:00 Sputum, Tracheal Aspirate Gram Stain - Final 08/29/20 22:00 Sputum, Tracheal Aspirate Respiratory Culture - Final Mixed normal respiratory abel. No Streptococcus pneumoniae, beta-hemolytic Streptococcus or Staphylococcus aureus isolated. Laboratory Results 08/31/20 12:19: POC Glucose 173 H 08/31/20 16:59: POC Glucose 181 H 08/31/20 23:25: POC Glucose 186 H 09/01/20 04:50: WBC 7.6, RBC 3.32 L, Hgb 9.7 L, Hct 33.1 L, MCV 99.7 H, MCH 29.2, MCHC 29.3 L, RDW Std Deviation 61.2 H, RDW Coeff of Melissa 16.9 H, Plt Count 168, MPV 9.3, Immature Gran % (Auto) 1.100 H, Neut % (Auto) 68.4, Lymph % (Auto) 13.0 L, [place] % (Auto) 13.6 H, Eos % (Auto) 3.4, Baso % (Auto) 0.5, Absolute Neuts (auto) 5.2, Absolute Lymphs (auto) 0.98, Nucleated RBC % 0 09/01/20 04:50: Sodium 135 L, Potassium 3.4 L, Chloride 98, Carbon Dioxide 28.0, Anion Gap 9, BUN 47 H, Creatinine 5.41 H, Estim Creat Clear Calc 15.54, Est GFR (MDRD) Af Amer 14 L, Est GFR (MDRD) Non-Af 11 L, BUN/Creatinine Ratio 8.7 L, Glucose 146 H, Calcium 6.8 L 09/01/20 06:31: POC Glucose 140 H Current Medications Acetaminophen (Tylenol) 650 mg PO Q4H PRN PRN PRN Reason: Pain Score 1-10 Last Admin: 08/31/20 23:34 Dose: 650 mg Documented by: Albuterol Sulfate (Ventolin Aerosols) 2.5 mg INHALATION Q2H PRN PRN PRN Reason: SOB/Wheezing Apixaban (Eliquis) 5 mg PO BID [facility] Last Admin: 08/31/20 23:29 Dose: 5 mg Documented by: Aspirin (Ecotrin) 81 mg PO DAILY [facility] Last Admin: 08/31/20 11:00 Dose: 81 mg Documented by: Atorvastatin Calcium (Lipitor) 80 mg PO QHS [facility] Last Admin: 08/31/20 23:30 Dose: 80 mg Documented by: Dextrose (D50w Syringe) 0 gm IV X1 PRN; Protocol PRN Reason: Hypoglycemia Glucagon () 1 mg IM .X1 PRN PRN Reason: Hypoglycemia Hydralazine HCl (Apresoline Iv) 5 mg IV Q30M PRN PRN Reason: to maintain BP goals Sodium Chloride () 250 mls @ 15 mls/hr IV .[id number] PRN PRN Reason: Saline Flush Sodium Chloride () 250 mls @ 15 mls/hr IV .[id number] PRN PRN Reason: Additional IVPB Infusion Insulin Human Lispro (Humalog Kwikpen (Bkc)) 0 unit SC ACHS [facility]; Protocol Last Admin: 09/01/20 06:35 Dose: Not Given Documented by: Ketorolac Tromethamine (Ketorolac Tromethamine) 1 ml EACH EYE TID [facility] Last Admin: 09/01/20 06:34 Dose: 1 ml Documented by: Labetalol HCl (Trandate) 20 mg IV X1 PRN PRN Reason: BLOOD PRESSURE Labetalol HCl (Trandate) 10 - 20 mg IV Q10M PRN PRN PRN Reason: to Maintain BP Goals Levothyroxine Sodium (Synthroid) 25 mcg PO DAILY@0600 [facility] Last Admin: 09/01/20 06:35 Dose: 25 mcg Documented by: Ondansetron HCl (Zofran) 4 mg IV Q8H PRN PRN PRN Reason: NAUSEA/VOMITING Last Admin: 08/30/20 05:30 Dose: 4 mg Documented by: Prednisolone Acetate (Pred Forte Eye Drops (5 Ml)) 1 drop EACH EYE TID [facility] Last Admin: 09/01/20 06:34 Dose: 1 drop Documented by: Sodium Chloride () 10 - 40 ml IV UD PRN PRN Reason: SALINE FLUSH Last Admin: 08/31/20 11:08 Dose: 10 ml Documented by: Medical Necessity - Tobacco Use Smoking Status: Never smoker Tobacco Use: Chew Assessment/Plan All Active Problems (This Medical Record has been edited. Action required.) Ulcer of left lower extremity with fat layer exposed (Resolved) Ulcer of right lower extremity with fat layer exposed (Resolved) Decubitus ulcer of coccyx, stage 2 (Resolved) CVA (cerebral vascular accident) (Acute) Respiratory failure (Acute) Aspirated gastric contents in lower respiratory tract (Acute) ESRD (end stage renal disease) on dialysis (Acute) Septic shock (Resolved) Hyperkalemia (Resolved) Pneumonia (Acute) Urinary tract infection (Resolved) Shock liver (Resolved) Chronic ulcer of left foot with fat layer exposed (Resolved) Ulcer of left foot (Resolved) Diabetic foot infection (Resolved) End-stage renal disease. HD TTS schedule Altered mental status. No acute evidence of stroke. BUN is 109 after dialysis. I suspect he might have had some component of dialysis disequilibrium syndrome yesterday due to high metabolites. Hyperkalemia. better Hyperphosphatemia. resumed binders ok to dc from my end
[2020-09-01 10:22] VITALS: BP 123/70; PULSE 70; RESP 18; TEMP 36.6; O2SAT 94
[2020-09-01] MEDS: APIXABAN 5 MG TABLET PO (10:40)
[2020-09-01] MEDS: Aspirin E.C. 81 MG Tablet PO (10:40)
[2020-09-01 11:05] VITALS: BP 123/70; PULSE 70; RESP 18; TEMP 36.6; O2SAT 94
--- NOTE | 2020-09-02 11:00 | CASEMGMT ---
[facility] Discharge Follow-up Phone Call: STEPHIE: Tian Strata: 3 Call Date: 09/02/2020 Discharge Date: 09/01/2020 Time of Call: 1100 Admitting Diagnosis: Encephalopathy Discharge follow-up call attempted to pt. Non-identifying voicemail received and nondescript message left requesting a return call. Rivka Finley RN CM
== END 2020-09-01 11:33 | disposition home or self-care (01) | DRG 70 ==
LOC: ED 10:24 → ICU 08-30 01:22 → PCU 08-31 15:21
PROVIDERS: Admitting Provider Internal Medicine; Emergency Provider Emergency Medicine; PCP Internal Medicine Infectious Disease; Visit Provider Internal Medicine
DX: G93.41 Metabolic encephalopathy (principal); N18.6 End stage renal disease; J96.01 Acute respiratory failure with hypoxia; J69.0 Pneumonitis due to inhalation of food and vomit; I13.2 Hypertensive heart and chronic kidney disease with heart failure and with stage 5 chronic kidney disease, or end stage renal disease; I50.22 Chronic systolic (congestive) heart failure; E11.22 Type 2 diabetes mellitus with diabetic chronic kidney disease; E87.5 Hyperkalemia; E83.39 Other disorders of phosphorus metabolism; D63.1 Anemia in chronic kidney disease; Z99.2 Dependence on renal dialysis; E11.42 Type 2 diabetes mellitus with diabetic polyneuropathy; I25.5 Ischemic cardiomyopathy; I25.10 Atherosclerotic heart disease of native coronary artery without angina pectoris; E78.5 Hyperlipidemia, unspecified; E03.9 Hypothyroidism, unspecified; F41.9 Anxiety disorder, unspecified; Z91.15 Patient's noncompliance with renal dialysis; Z79.4 Long term (current) use of insulin; Z79.82 Long term (current) use of aspirin; Z79.01 Long term (current) use of anticoagulants; Z79.890 Hormone replacement therapy; Z79.899 Other long term (current) drug therapy; I25.2 Old myocardial infarction; Z95.1 Presence of aortocoronary bypass graft; Z95.810 Presence of automatic (implantable) cardiac defibrillator
CPT/HCPCS: 31500; 31720; 36415; 36600; 51702; 70450; 70496; 70498; 71045; 80048; 80061; 82803; 82962; 84100; 84443; 84484; 85025; 85610; 85730; 87070; 87205; 87641; 90937; 93005; 93306; 94002; 94003; 94660; 97116; 97162; 97166; 97535; 97802; 99251; 99285; J7030; J7120; Q9957; Q9967; A4216; C8929; G0257; G0463; J0330; J2405; J3010; J3490

== ENCOUNTER 2020-09-12 11:03 | Emergency (ER) | payer MEDICARE, SELFPAY ==
[2020-09-12 11:04] VITALS: BP 135/72; PULSE 70; RESP 20; TEMP 36.5; O2SAT 97; BMI 33.4
--- NOTE | 2020-09-12 13:08 | ED.DCSUM_ITS ---
History of Present Illness Chief Complaint: Foreign Body Informant: Patient Onset: Today Narrative: Patient is is a 60-year-old male with history of end-stage renal disease on hemodialysis presenting with dialysis port malfunction. Patient has a tunnel dialysis catheter in his right chest wall and was at dialysis today. At the end of dialysis a piece of plastic broke off inside of the dialysis catheter ports and is now lodged in. It is not able to be removed and patient was sent to the ER for further evaluation of it. Patient was able to have a complete session of dialysis. He denies any complaints at this time. The catheter was initially placed at [facility]. He has been on dialysis for about a year. Past Medical History - Allergies and Home Meds Allergies/Adverse Reactions: Allergies CONTRAST DYE Adverse Reaction (Uncoded 08/29/20 10:42) Other Past Medical History: - - End Stage renal disease, on hemodialysis Surgical History: coronary bypass surgery, pacemaker implantation, - Smoking Status: Never smoker - Family History Maternal Family History: Reports: - - Patient's father at age of 83 with a history of heart disease and dementia. The patient's mother is alive, age 84, and healthy. Paternal Family History: Reports: Diabetes, Hypertension Review of Systems General: Denies: Chills, Fever, Sweats Eyes: Denies: Visual changes - bilaterally, Diplopia ENT: Denies: Rhinorrhea, Sore throat Cardiovascular: Denies: Chest pain, Palpitations Respiratory: Denies: Dyspnea, Cough, Dyspnea on exertion Gastrointestinal: Denies: Abdominal pain, Nausea, Vomiting, Diarrhea, Melena, Hematochezia Genitourinary: Denies: Dysuria, Hematuria, Frequency Musculoskeletal: Denies: Back pain, Extremity Pain Skin: Denies: Rash, Wounds Neurological: Denies: Headache, Weakness, Numbness Physical Exam Vital Signs/Narrative: Vital Signs Temp Pulse Resp BP Pulse Ox 09/12/20 11:04 97.7 F L 70 20 H 135/72 H 97 Inital Vital Signs reviewed: Yes General: Well nourished, Well developed, No Acute Distress Head: Normocephalic, Atraumatic Eyes: Perrl, EOMI ENT: Moist mucous membranes, No rhinorrhea Neck: Supple, Nontender Cardiovascular: Regular rate, Regular rhythm, No murmurs, - - Right chest wall dialysis catheter in place. There is a piece of plastic wedged in one of the ports, occluding it and the end is irregular but almost flush with the port Respiratory: No distress, CTA bilaterally, Chest nontender Abdomen: Soft, Nontender, Nondistended, Normal bowel sounds Back: Nontender, Normal Inspection Extremities: Nontender, No edema Skin: Normal color, No rash Neurological: Alert, Oriented x3, Cranial nerves II-XII grossly intact, Normal Strength, Normal Sensation Psychological: Normal affect, Normal Mood Diagnostic/Tx/Re-eval - Medical Decision Making Patient evaluated for dysfunction of his tunneled dialysis catheter. There is a piece of plastic that was wedged in one of the ports that is now occluding it. I am not able to remove the piece of plastic and this is already been attempted as well at his dialysis center. I did discuss with his military technology manager to felt that more than likely he would need his catheter replaced. As patient had a full session of dialysis today he does not need it done emergently and this can probably be done outpatient tomorrow or later today. His next dialysis is scheduled for Wednesday. Initially spoke with interventional radiology who states this is a vascular surgery issue. I did spoke with Dr. Lopez, who had the surgical PA come down and evaluate the patient. Patient will be scheduled for catheter replacement/exchange tomorrow. This will be done outpatient and patient does not require an emergent admission at this time. As he is otherwise well-appearing and just had dialysis I do not think EKG or lab work is indicated at this time. Patient is discharged home and is agreeable with this plan. ED Disposition - Plan for ED Patient: Disposition: Home or Assisted Living Diagnosis: Complications, dialysis, catheter, mechanical Additional Instructions: Surgery scheduling will call you later today to let you know what time to show up tomorrow morning. At that time our surgeons will replace your dialysis catheter.
[2020-09-12 15:06] VITALS: BP 121/62; PULSE 70; RESP 20; O2SAT 96
--- NOTE | 2020-09-12 15:10 | PCM.HP.STD ---
Problem List (1) Problem with dialysis access Status: Acute (2) ESRD (end stage renal disease) on dialysis Status: Acute History of Present Illness Date of Admission: 09/12/20 Chief Complaint: Problem with dialysis access The patient is a 60 year old M who presents with malfunctioning dialysis catheters. Patient states at the end of dialysis today, blood was being removed for routine lab sample when a piece of plastic broke off. Patient states he was able to complete his dialysis treatments. He notes having the right chest tunneled dialysis catheters placed at [facility] approximately 1 year ago. 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 He states a fistula was not discussed or scheduled for the patient to pursue. He dialyzes at [facility]. He dialyzes T, Th and Sat. He denies having previous concerns with his tunneled dialysis catheters. He notes being on Eliquis due to previous history of double bypass surgery in 2013. He sees a user support specialist out of [place]. He has a pacemaker. Past Medical History Past Medical History (Chronic Problems): Chronic Problems (This Medical Record has been edited. Action required.) Renal failure (Chronic) Anemia (Chronic) Equinus contracture of left ankle (Chronic) Hammer toe of left foot (Chronic) Diabetic neuropathy (Chronic) CHF (congestive heart failure) (Chronic) Infected skin ulcer with fat layer exposed (Chronic) Leg wound, left (Chronic) Ulcer of left foot (Chronic) Diabetic foot ulcer associated with secondary diabetes mellitus (Chronic) Swelling of lower extremity (Chronic) Hyperlipidemia (Chronic) Hypertension (Chronic) Diabetes mellitus (Chronic) History of [place] (myocardial infarction) (Chronic) Coronary artery arteriosclerosis (Chronic) Venous insufficiency of both lower extremities (Chronic) Edema, lower extremity (Chronic) Peripheral vascular disease (Chronic) Medical History: Medical History (This Medical Record has been edited. Action required.) Heart failure I50.9 Allergies CONTRAST DYE Adverse Reaction (Uncoded 08/29/20 10:42) Other Home Medications: Ambulatory Orders Medication Instructions Recorded Aspirin [Adult Low Dose Aspirin EC] 81 mg PO DAILY 08/28/15 Insulin Aspart [Novolog Flexpen] 45 units SC TIDCM 11/14/15 Apixaban [Eliquis] 5 mg PO BID 11/03/19 Midodrine HCl 10 mg PO DAILY 11/03/19 Atorvastatin Calcium [Lipitor] 40 mg PO QHS 08/29/20 Carvedilol 3.125 mg PO BID 08/29/20 Gabapentin [Neurontin] 300 mg PO BID 08/29/20 Ketorolac Tromethamine/Pf [Acuvail 1 drop EACH EYE TID 08/29/20 0.45% Ophth Solution] Levothyroxine [Synthroid] 25 mcg PO DAILY 08/29/20 Prednisolone Acetate/Pf 1 drop EACH EYE TID 08/29/20 [Prednisolone Acet 1% Eye Drop] Propylene Glycol/Peg 400 [Systane 1 drop EACH EYE TID 08/29/20 Gel Eye Drops] Amoxicillin/Potassium Clav 1 ea PO BID #14 tab 09/01/20 [Augmentin 875-125 Tablet] Surgical History: coronary bypass surgery, pacemaker implantation Psychiatric History: Anxiety Smoking Status: Never smoker - *Family History Maternal History Items: - - Patient's father at age of 83 with a history of heart disease and dementia. The patient's mother is alive, age 84, and healthy. Paternal History Items: Diabetes, Hypertension Review of Systems Constitutional: Denies: Chills, Fever, Weight Change HEENT: Denies: Head Aches, Sinus Congestion, Sinus Drainage Cardiovascular: Denies: Chest Pain, Palpitations Respiratory: Denies: Cough, Shortness of breath at rest, Sputum production Gastrointestinal: Denies: Abdominal Pain, Nausea, Vomiting Genitourinary: Denies: Dysuria Musculoskeletal: Denies: Joint Pain, Joint Tenderness Skin: Denies: Rash, Wounds Neurological: Denies: Numbness, Tingling, Focal weakness Psychiatric: Denies: Anxiety, Depression, Homicidal Ideations, Suicidal Ideations Hematologic/ Lymphatic: Denies: Easy Bruising, Easy Bleeding VTE Information - Inpt Only VTE Present on Admission: No Patient Problems: Active and Suspected Problems (This Medical Record has been edited. Action required.) Complications, dialysis, catheter, mechanical (Acute) - Physical Exam Vitals/I&O's: Vital Signs Temp Pulse Resp BP Pulse Ox 97.7 F L 70 20 H 121/62 H 96 09/12/20 11:04 09/12/20 15:06 09/12/20 15:06 09/12/20 15:06 09/12/20 15:06 Oxygen Delivery Method Room Air Weight: 281 lb 15.539 oz Body Mass Index (BMI) 33.4 Finger Stick Blood Glucose 160 General: Alert, Oriented x3, Cooperative HEENT: Atraumatic, PERRLA, EOMI, Normocephalic Neck: Supple, No JVD, Negative Carotid Bruits Lungs: Clear to auscultation, Normal air movement Cardiovascular: Regular rate, No murmurs Abdomen: Bowel Sounds Present, Soft, Non Tender Extremities: No edema, Capillary Refill Less than 3 Seconds Skin: No rashes, No breakdown, - - Right chest tunneled dialysis catheter Musculoskeletal: No Tenderness to Palpation of Joints or Extremities Neurological: Neuro grossly intact Psych/Mental Status: Normal Affect, Appropriate Assessment/Plan All Active Problems (This Medical Record has been edited. Action required.) Ulcer of left lower extremity with fat layer exposed (Resolved) Ulcer of right lower extremity with fat layer exposed (Resolved) Decubitus ulcer of coccyx, stage 2 (Resolved) CVA (cerebral vascular accident) (Acute) Respiratory failure (Acute) Aspirated gastric contents in lower respiratory tract (Acute) ESRD (end stage renal disease) on dialysis (Acute) Complications, dialysis, catheter, mechanical (Acute) Problem with dialysis access (Acute) Septic shock (Resolved) Hyperkalemia (Resolved) Pneumonia (Acute) Urinary tract infection (Resolved) Shock liver (Resolved) Chronic ulcer of left foot with fat layer exposed (Resolved) Ulcer of left foot (Resolved) Diabetic foot infection (Resolved) I am seeing this patient in conjunction with Dr. Lopez and Dr. Brandon Impression: Malfunctioning dialysis catheter. Problem with dialysis catheter. Plan: Patient discussed with Dr. Brandon. Dr. Brandon or Dr. Lopez will plan to perform a right chest tunneled dialysis catheter removal and replacement of the right tunneled dialysis catheter. Procedure details, risks and benefits have been explained to the patient. Patient has had the opportunity to ask and have questions answered. Patient continue to hold his Eliquis until after the procedure. NPO after midnight. This plan was discussed with the patient. OR will contact the patient once procedure is scheduled. Thank you for allowing us to participate in this patient's care. Office Visits / Consults: [id number] OP Consult L3
== END 2020-09-12 15:07 | disposition home or self-care (01) ==
PROVIDERS: Emergency Provider Emergency Medicine; PCP Internal Medicine Infectious Disease
DX: T82.49XA Other complication of vascular dialysis catheter, initial encounter (principal); E11.22 Type 2 diabetes mellitus with diabetic chronic kidney disease; I13.2 Hypertensive heart and chronic kidney disease with heart failure and with stage 5 chronic kidney disease, or end stage renal disease; N18.6 End stage renal disease; Z99.2 Dependence on renal dialysis; E11.51 Type 2 diabetes mellitus with diabetic peripheral angiopathy without gangrene; E11.40 Type 2 diabetes mellitus with diabetic neuropathy, unspecified; I25.10 Atherosclerotic heart disease of native coronary artery without angina pectoris; I50.9 Heart failure, unspecified; E78.5 Hyperlipidemia, unspecified; Z79.4 Long term (current) use of insulin; Z79.82 Long term (current) use of aspirin; Z79.01 Long term (current) use of anticoagulants; I25.2 Old myocardial infarction; Z95.1 Presence of aortocoronary bypass graft; Z95.0 Presence of cardiac pacemaker
CPT/HCPCS: 99283

== ENCOUNTER 2020-09-13 11:15 | Day surgery (SDC) | payer MEDICARE, SELFPAY ==
[2020-09-12 11:04] VITALS: BMI 33.4
[2020-09-13 12:11] VITALS: BP 117/73; PULSE 70; RESP 18; TEMP 36.6; O2SAT 99; BMI 33.0
--- NOTE | 2020-09-13 12:20 | HP.PCM_ITS ---
Problem List (1) Problem with dialysis access Status: Acute History and Physical Date of Admission: 09/13/20 Problem List (1) Problem with dialysis access Status: Acute (2) ESRD (end stage renal disease) on dialysis Status: Acute History of Present Illness Date of Admission: 09/12/20 Chief Complaint: Problem with dialysis access The patient is a 60 year old M who presents with malfunctioning dialysis catheters. Patient states at the end of dialysis today, blood was being removed for routine lab sample when a piece of plastic broke off. Patient states he was able to complete his dialysis treatments. He notes having the right chest tunneled dialysis catheters placed at [facility] approximately 1 year ago. 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 He states a fistula was not discussed or scheduled for the patient to pursue. He dialyzes at [facility]. He dialyzes T, Th and Sat. He denies having previous concerns with his tunneled dialysis catheters. He notes being on Eliquis due to previous history of double bypass surgery in 2013. He sees a cap machine operator out of [place]. He has a pacemaker. Past Medical History Past Medical History (Chronic Problems): Chronic Problems (This Medical Record has been edited. Action required.) Renal failure (Chronic) Anemia (Chronic) Equinus contracture of left ankle (Chronic) Hammer toe of left foot (Chronic) Diabetic neuropathy (Chronic) CHF (congestive heart failure) (Chronic) Infected skin ulcer with fat layer exposed (Chronic) Leg wound, left (Chronic) Ulcer of left foot (Chronic) Diabetic foot ulcer associated with secondary diabetes mellitus (Chronic) Swelling of lower extremity (Chronic) Hyperlipidemia (Chronic) Hypertension (Chronic) Diabetes mellitus (Chronic) History of [place] (myocardial infarction) (Chronic) Coronary artery arteriosclerosis (Chronic) Venous insufficiency of both lower extremities (Chronic) Edema, lower extremity (Chronic) Peripheral vascular disease (Chronic) Medical History: Medical History (This Medical Record has been edited. Action required.) Heart failure I50.9 Allergies CONTRAST DYE Adverse Reaction (Uncoded 08/29/20 10:42) Other Home Medications: Ambulatory Orders Medication Instructions Recorded Aspirin [Adult Low Dose Aspirin EC] 81 mg PO DAILY 08/28/15 Insulin Aspart [Novolog Flexpen] 45 units SC TIDCM 11/14/15 Apixaban [Eliquis] 5 mg PO BID 11/03/19 Midodrine HCl 10 mg PO DAILY 11/03/19 Atorvastatin Calcium [Lipitor] 40 mg PO QHS 08/29/20 Carvedilol 3.125 mg PO BID 08/29/20 Gabapentin [Neurontin] 300 mg PO BID 08/29/20 Ketorolac Tromethamine/Pf [Acuvail 1 drop EACH EYE TID 08/29/20 0.45% Ophth Solution] Levothyroxine [Synthroid] 25 mcg PO DAILY 08/29/20 Prednisolone Acetate/Pf 1 drop EACH EYE TID 08/29/20 [Prednisolone Acet 1% Eye Drop] Propylene Glycol/Peg 400 [Systane 1 drop EACH EYE TID 08/29/20 Gel Eye Drops] Amoxicillin/Potassium Clav 1 ea PO BID #14 tab 09/01/20 [Augmentin 875-125 Tablet] Surgical History: coronary bypass surgery, pacemaker implantation Psychiatric History: Anxiety Smoking Status: Never smoker - *Family History Maternal History Items: - - Patient's father at age of 83 with a history of heart disease and dementia. The patient's mother is alive, age 84, and healthy. Paternal History Items: Diabetes, Hypertension Review of Systems Constitutional: Denies: Chills, Fever, Weight Change HEENT: Denies: Head Aches, Sinus Congestion, Sinus Drainage Cardiovascular: Denies: Chest Pain, Palpitations Respiratory: Denies: Cough, Shortness of breath at rest, Sputum production Gastrointestinal: Denies: Abdominal Pain, Nausea, Vomiting Genitourinary: Denies: Dysuria Musculoskeletal: Denies: Joint Pain, Joint Tenderness Skin: Denies: Rash, Wounds Neurological: Denies: Numbness, Tingling, Focal weakness Psychiatric: Denies: Anxiety, Depression, Homicidal Ideations, Suicidal Ideations Hematologic/ Lymphatic: Denies: Easy Bruising, Easy Bleeding VTE Information - Inpt Only VTE Present on Admission: No Patient Problems: Active and Suspected Problems (This Medical Record has been edited. Action required.) Complications, dialysis, catheter, mechanical (Acute) - Physical Exam Vitals/I&O's: Vital Signs Temp Pulse Resp BP Pulse Ox 97.7 F L 70 20 H 121/62 H 96 09/12/20 11:04 09/12/20 15:06 09/12/20 15:06 09/12/20 15:06 09/12/20 15:06 Oxygen Delivery Method Room Air Weight: 281 lb 15.539 oz Body Mass Index (BMI) 33.4 Finger Stick Blood Glucose 160 General: Alert, Oriented x3, Cooperative HEENT: Atraumatic, PERRLA, EOMI, Normocephalic Neck: Supple, No JVD, Negative Carotid Bruits Lungs: Clear to auscultation, Normal air movement Cardiovascular: Regular rate, No murmurs Abdomen: Bowel Sounds Present, Soft, Non Tender Extremities: No edema, Capillary Refill Less than 3 Seconds Skin: No rashes, No breakdown, - - Right chest tunneled dialysis catheter Musculoskeletal: No Tenderness to Palpation of Joints or Extremities Neurological: Neuro grossly intact Psych/Mental Status: Normal Affect, Appropriate Assessment/Plan All Active Problems (This Medical Record has been edited. Action required.) Ulcer of left lower extremity with fat layer exposed (Resolved) Ulcer of right lower extremity with fat layer exposed (Resolved) Decubitus ulcer of coccyx, stage 2 (Resolved) CVA (cerebral vascular accident) (Acute) Respiratory failure (Acute) Aspirated gastric contents in lower respiratory tract (Acute) ESRD (end stage renal disease) on dialysis (Acute) Complications, dialysis, catheter, mechanical (Acute) Problem with dialysis access (Acute) Septic shock (Resolved) Hyperkalemia (Resolved) Pneumonia (Acute) Urinary tract infection (Resolved) Shock liver (Resolved) Chronic ulcer of left foot with fat layer exposed (Resolved) Ulcer of left foot (Resolved) Diabetic foot infection (Resolved) I am seeing this patient in conjunction with Dr. Lopez and Dr. Brandon Impression: Malfunctioning dialysis catheter. Problem with dialysis catheter. Plan: Patient discussed with Dr. Brandon. Dr. Brandon or Dr. Lopez will plan to perform a right chest tunneled dialysis catheter removal and replacement of the right tunneled dialysis catheter. Procedure details, risks and benefits have been explained to the patient. Patient has had the opportunity to ask and have questions answered. Patient continue to hold his Eliquis until after the procedure. NPO after midnight. This plan was discussed with the patient. OR will contact the patient once procedure is scheduled. Thank you for allowing us to participate in this patient's care. Office Visits / Consults: [id number] OP Consult L3 09/12/20 [id number] <Electronically signed by Becka LEONARDO PA-C> Date _ Becka LEONARDO PA-C The patient was seen yesterday by Becka Samano in the emergency room. Patient was kept n.p.o. for midnight and sent home and asked to return today. I discussed catheter exchange with the patient today. Patient has held his Eliquis and has been n.p.o. I discussed removing the nonworking right chest catheter and replacing a right chest catheter in a new site. I would prefer to place a new catheter on the right side which is his existing side due to his pacemaker on the left. If the vein looks small on ultrasound preoperatively I will plan to rewire the catheter in place through the same site. Patient understands the risks of bleeding, infection, pneumothorax. Khanh Brandon MD Pager: [facility] [address] [place] [address] [address] [place] [address] Office:
[2020-09-13] MEDS: 0.9% Normal Saline 1,000 ML 30 ML IV (12:45)
[2020-09-13 12:46] LABS: Bedside Glucose 125 mg/dL (70-110)
[2020-09-13] MEDS: Cefazolin 2 GM in 0.9% Normal Saline 100 ML IV (13:28)
[2020-09-13] MEDS: Heparin 10,000 UNITS/10 ML Vial 10000 UNITS (13:44)
[2020-09-13 14:15] VITALS: BP 110/58; BP 117/73; PULSE 72; RESP 16; TEMP 36.3; O2SAT 95
[2020-09-13 14:20] VITALS: BP 117/73; BP 99/56; PULSE 69; RESP 16; O2SAT 93
[2020-09-13 14:25] VITALS: BP 108/72; BP 117/73; PULSE 76; RESP 16; O2SAT 95
--- NOTE | 2020-09-13 14:25 | RAD_ITS ---
STUDY: X-RAY CHEST REASON FOR EXAM: Male, 60 years old. POST DIALYSIS CATHETER REMOVAL, LEFT SIDE, DIALYSIS CATHETER PLACEMENT RIGHT SIDE. TECHNIQUE: Single AP portable view of the chest. COMPARISON: Comparison is made with prior study dated 08/29/2020. FINDINGS: A right-sided dialysis catheter is present. The tip is at the junction of superior vena cava and right atrium. Stable mild increased linear markings at the lung bases suggestive of a layering atelectasis and/or scarring. Stable blunting of the left costophrenic angle. Sternal cerclage wires and vascular clips are present from a prior sternotomy and coronary artery bypass graft procedure (CABG). A left-sided unipolar pacemaker is seen. Borderline cardiomegaly. Normal mediastinum and celeste. Normal visualized pulmonary arteries. There is atherosclerotic tortuosity of the aortic arch and descending thoracic aorta. Normal visualized thoracic spine. Normal visualized ribs, clavicles, and shoulders. There is no demonstrated abnormality of the visualized soft tissue structures of the upper abdomen. RAD/CXR for Line Placement IMPRESSION: The tip of the right dialysis catheter is at the junction of the superior vena cava and right atrium. Electronically Signed: Darnell Carter, at 14:44 EDT , Service support ,
[2020-09-13 14:30] VITALS: BP 116/68; BP 117/73; PULSE 92; RESP 16; TEMP 36.1; O2SAT 93
--- NOTE | 2020-09-13 14:37 | DCINST_ITS ---
Discharge Diet: No Restrictions - Pain medication may cause nausea. You should typically eat light foods as you take your pain medication. Discharge Activity: Return to Normal Activity, May Shower Call your doctor if your incision/area has: Continuous Slow Oozing, Sudden Increased Bleeding, Increased Pain/ Swelling, Increased Redness Call your doctor if you observe: Fever of 101 or Higher Remove Dressing in (days):: 3 - When you remove the bandage, leave the steri- strips intact until they fall off. Allergies/Adverse Reactions: Allergies CONTRAST DYE Adverse Reaction (Uncoded 09/13/20 12:01) Other Medications to take at Discharge Aspirin [Adult Low Dose Aspirin EC] 81 mg PO DAILY 08/28/15 Insulin Aspart [Novolog Flexpen] 45 units SC TIDCM 11/14/15 Apixaban [Eliquis] 5 mg PO BID 11/03/19 Midodrine HCl 10 mg PO DAILY 11/03/19 Atorvastatin Calcium [Lipitor] 40 mg PO QHS 08/29/20 Gabapentin [Neurontin] 300 mg PO BID 08/29/20 Ketorolac Tromethamine/Pf [Acuvail 0.45% Ophth Solution] 1 drop EACH EYE TID 08/29/20 Prednisolone Acetate/Pf [Prednisolone Acet 1% Eye Drop] 1 drop EACH EYE TID 08/29/20 Propylene Glycol/Peg 400 [Systane Gel Eye Drops] 1 drop EACH EYE TID 08/29/20 Liraglutide [Victoza] 1.6 mg SQ QHS 09/13/20 Test Results: Test results from this visit will be discussed in further detail at your follow- up appointment, if applicable. Please Follow Up With: Khanh Brandon MD When: as needed. [phone]
--- NOTE | 2020-09-13 14:51 | OP.PCM_ITS ---
Problem List (1) Problem with dialysis access Status: Acute Report of Operation Date of Procedure: 09/13/20 Pre-Operative Diagnosis: Nonworking right chest dialysis catheter Post-Operative Diagnosis: Same Surgery/Procedure Performed:: 1. Removal of tunneled right chest dialysis catheter. 2. Ultrasound and fluoroscopy guided insertion of right tunneled chest dialysis catheter utilizing right IJ Description of Procedure: Patient was brought back to the operating room MAC anesthesia was induced. The patient's right chest and neck was prepped and draped in usual sterile fashion. The area of the old catheter scope was injected with local anesthetic. A counterincision was made over this area and the cuff was dissected free from the surrounding tissue and the former catheter was removed. Pressure was held over the neck to stop bleeding. Next the IJ was inspected and an area overlying the right IJ was injected with local anesthetic. A small atul was made with a scalpel. Ultrasound guidance was used to place a needle into the right IJ and dark blood was aspirated. A guidewire was placed without resistance into the right IJ. Fluoroscopy was used to confirm positioning. Next the needle was removed and over the guidewire serial dilators and peel-away sheath was placed into the right IJ under fluoroscopic guidance. A small incision was made in the chest and the catheter was placed through the incision and tunneled up to the neck incision and then placed into the peel-away sheath and the peel-away sheath was removed. Fluoroscopy was used to confirm good placement with no kinking. Both catheters were aspirated and flushed easily. 1.6 cc of heparinized saline was placed into each catheter and they were clamped and capped. The catheter was sutured to the skin using nylon suture and the incisions were closed with 3- 0 Vicryl suture and Steri-Strips. The prior exit site was left open to drain in case there is any contamination. Dressings were placed and the patient was taken to PACU in stable condition and chest x-ray was ordered. Grafts/Implants Used: Curved short palindrome catheters - Admit VTE Documentation VTE Mechan Device Prophylaxis: SCD's
[2020-09-13 15:09] VITALS: BP 117/73
== END 2020-09-13 15:10 | disposition home or self-care (01) ==
LOC: SDC 11:15 → AC 11:16
PROVIDERS: PCP Internal Medicine Infectious Disease; Referring Provider Surgery; Visit Provider Surgery
PROC: (CPT 36558; principal; 2020-09-13 14:45)
DX: T82.49XA Other complication of vascular dialysis catheter, initial encounter (principal); I13.2 Hypertensive heart and chronic kidney disease with heart failure and with stage 5 chronic kidney disease, or end stage renal disease; E11.22 Type 2 diabetes mellitus with diabetic chronic kidney disease; N18.6 End stage renal disease; I50.9 Heart failure, unspecified; Z99.2 Dependence on renal dialysis; E11.51 Type 2 diabetes mellitus with diabetic peripheral angiopathy without gangrene; E11.40 Type 2 diabetes mellitus with diabetic neuropathy, unspecified; I25.10 Atherosclerotic heart disease of native coronary artery without angina pectoris; D64.9 Anemia, unspecified; E78.5 Hyperlipidemia, unspecified; I25.2 Old myocardial infarction; Z79.01 Long term (current) use of anticoagulants; Z79.82 Long term (current) use of aspirin; Z79.4 Long term (current) use of insulin; Z95.0 Presence of cardiac pacemaker; Z95.1 Presence of aortocoronary bypass graft
CPT/HCPCS: 00532; 36558; 36589; 77001; 71045; 76000; 82962; J7120; C1750

== ENCOUNTER 2021-02-09 19:53 | Emergency (ER) | payer MEDICARE, SELFPAY ==
[2021-02-09 19:56] VITALS: BP 135/71; PULSE 70; RESP 23; TEMP 36.4; O2SAT 93; BMI 41.5
--- NOTE | 2021-02-09 20:20 | ED.DCSUM_ITS ---
- ER Visit Summary Date of Service: 02/09/21 Chief Complaint: Nosebleed History of Present Illness: The patient is a 61 M 3 of prior stroke, double bypass, CAD, A. fib on Eliquis, diabetes, end-stage renal disease dialysis on Wednesday and had a full run of dialysis yesterday. He does get heparin with dialysis. Patient started having a nosebleed about an hour ago. Initially started on the right now is bleeding from both sides with clots. Of note he recently was diagnosed with Covid pneumonitis. Physical Examination: Older male vital signs stable. Pulse ox 93% on room air no hypoxia. H EENT exam bleeding from both nares. Small clots. Posterior pharyngeal blood. Neck nontender. Lungs coarse breath sounds bilaterally. Heart regular rhythm rate about 70. Abdomen soft nontender. Chest wall nontender. Right-sided Vas-Cath. Moving all 4 extremities. Lower extremity edema. Left foot venous stasis and toe amputations done previously. Neurologically is awake and alert. No focal motor deficits. Test Results: None Emergency Department Course and Treatment: Older male on dialysis also anticoagulant Eliquis with bilateral nosebleed. Cottonball's soaked with Afrin then placed in both sides of his nose to slow the bleeding. Patient's bleeding was controlled with the Afrin soaked cotton balls. I remove the clot from his posterior pharynx. Placed anterior Merisel packs. No be observed. Treatment Plan: Amoxicillin 3 times daily for 3 days. Packs remain in place for 3 days and then pulled. Direct pressure if recurrent bleeding. Return if unable to get stop. Disposition: Discharge. Impression: Acute bilateral nosebleed Bilateral anterior nosebleeds with anterior Merocel nasal packs placed by ER History of end-stage renal disease dialysis Anticoagulant Eliquis History of CAD with A. fib Diabetes Covid pneumonia This note was generated with [employer] dictation software. It may contain incorrect words, spelling, and punctuation that were not noted in review of the chart prior to signing ED Disposition - Plan for ED Patient: Referrals: Nati Langston MD [Primary Care Provider] -
[2021-02-09 21:00] VITALS: BP 124/92; PULSE 86; RESP 18; O2SAT 92
--- NOTE | 2021-02-09 21:44 | ED.DEP ---
ED Disposition - Plan for ED Patient: Disposition: Home or Assisted Living Instructions: Nosebleed Prescriptions: Amoxicillin 500 mg PO TID 3 Days #9 tablet Prescription Printed Referrals: Mushtaq Musa MD [STAFF PHYSICIAN] - As soon as possible Additional Instructions: Need to follow-up with an ear nose and throat doctor Dr. Mushtaq Stiles on Wednesday to have your nasal packs removed. Pack should stay in for 3 days while nasal packs are in you need to take the antibiotic amoxicillin 3 times a day for 3 days. If your nose continues to bleed in spite of the packs hold direct pressure if you are unable to get it to stop you need to return to the emergency department.
[2021-02-09 22:11] VITALS: BP 152/62; PULSE 88; RESP 16; O2SAT 96
== END 2021-02-09 22:19 | disposition home or self-care (01) ==
PROVIDERS: Emergency Provider Emergency Medicine; PCP Internal Medicine Infectious Disease
DX: R04.0 Epistaxis (principal); U07.1 COVID-19; J12.82 Pneumonia due to coronavirus disease 2019; I13.2 Hypertensive heart and chronic kidney disease with heart failure and with stage 5 chronic kidney disease, or end stage renal disease; E11.22 Type 2 diabetes mellitus with diabetic chronic kidney disease; N18.6 End stage renal disease; I50.9 Heart failure, unspecified; Z99.2 Dependence on renal dialysis; I25.10 Atherosclerotic heart disease of native coronary artery without angina pectoris; I48.91 Unspecified atrial fibrillation; Z79.4 Long term (current) use of insulin; Z79.01 Long term (current) use of anticoagulants; Z79.899 Other long term (current) drug therapy; Z86.73 Personal history of transient ischemic attack (TIA), and cerebral infarction without residual deficits; Z95.1 Presence of aortocoronary bypass graft
CPT/HCPCS: 30901; 99283